=== PATIENT | female | born 1965 | race Caucasian/White ===

== ENCOUNTER 2018-04-12 14:22 | Emergency (ER) | payer MEDICARE, MEDICAID ==
[~2018-04-12] VITALS: Ht 172.7 cm; Wt 60.8 kg
[~2018-04-12 14:22] MED LIST: CLPD75T; CRS350T; LORA0.5T34; LVT.088T; PRM25T
[2018-04-12] MEDS ORDERED: KETOROLAC 30 MG/ML VIAL IVP ONE (14:45)
--- NOTE | 2018-04-12 14:51 | ED Abdominal Pain ---
General Stated Complaint: LOWER RIGHT SIDE PAIN Source of Information: Patient, Family Exam Limitations: No Limitations History of Present Illness Date Seen by Provider: Apr 12, 2018 Time Seen by Provider: 14:40 Initial Comments Patient presents to ER by private conveyance with chief complaint she's having some pain in her right lower quadrant abdomen started about 45 minutes to an hour ago. She describes it as 9 out of 10 sharp unrelenting pain. She says it does not radiate anywhere. She has not had her appendix or gallbladder out but she has had her hysterectomy and 2 C-sections. She is on a lot of medications for her migraine to include risperidone, topiramate. She said she had a bowel movement yesterday that was normal formed. No history of diverticulitis but she has had a colonoscopy in the past 2 years demonstrating a couple polyps. She has a history of interstitial cystitis. Allergies and Home Medications Allergies Coded Allergies: Hydrocodone (Verified Allergy, Unknown, 01/08/08) Morphine (Verified Allergy, Unknown, 01/08/08) Penicillins (Verified Allergy, Unknown, 01/08/08) Aspirin (Verified Adverse Reaction, Mild, STOMACH UPSET, 01/10/08) Patient Home Medication List Home Medication List Reviewed: Yes Review of Systems Review of Systems Constitutional: No chills, No diaphoresis EENTM: No Blurred Vision, No Double Vision Respiratory: Denies Cough, Denies Shortness of Air Cardiovascular: Denies Chest Pain, Denies Edema Gastrointestinal: Denies Abdomen Distended; Abdominal Pain; Denies Blood Streaked Stools, Denies Constipated, Denies Diarrhea, Denies Nausea Genitourinary: Denies Burning, Denies Discharge Musculoskeletal: No back pain, No joint pain Psychiatric/Neurological: Denies Anxiety, Denies Depressed Past [id number]-Ahpepz Hx Patient Social History Alcohol Use: Denies Use Recreational Drug Use: No Smoking Status: Never a Smoker Recent Foreign Travel: No Contact w/Someone Who Travel: No Past Medical History Reproductive Disorders: No Physical Exam Vital Signs Vital Signs - First Documented 04/12/18 14:30 Temp 97.8 Pulse 78 Resp 18 B/P (MAP) 124/80 (95) Pulse Ox 98 O2 Delivery Room Air Capillary Refill : Height/Weight/BMI Height: '" Weight: lbs. oz. kg; BMI Method: General Appearance: WD/WN, mild distress HEENT: PERRL/EOMI, normal ENT inspection, pharynx normal Neck: non-tender, full range of motion Respiratory: lungs clear, normal breath sounds, no respiratory distress, no accessory muscle use Cardiovascular: normal peripheral pulses, regular rate, rhythm, no edema Peripheral Pulses: 2+ Radial Pulses (R), 2+ Radial Pulses (L) Gastrointestinal: normal bowel sounds, soft; No rebound; tenderness (right lower quadrant at McBurney's point without rebound tenderness. Negative for Ellison sign but there is some tenderness in the right upper quadrant as well.), other (negative for mesenteric signs, Rovsing's, psoas.) Extremities: normal inspection, no pedal edema, normal capillary refill Neurologic/Psychiatric: alert, normal mood/affect, oriented x 3 Skin: normal color, warm/dry Progress/Results/Core Measures Results/Orders Lab Results Laboratory Tests Test 04/12/18 14:51 04/12/18 15:05 Range/Units White Blood Count 5.7 4.3-11.0 10^3/uL Red Blood Count 3.90 L 4.35-5.85 10^6/uL Hemoglobin 13.0 11.5-16.0 G/DL Hematocrit 37 35-52 % Mean Corpuscular Volume 94 80-99 FL Mean Corpuscular Hemoglobin 33 25-34 PG Mean Corpuscular Hemoglobin Concent 35 32-36 G/DL Red Cell Distribution Width 12.5 10.0-14.5 % Platelet Count 133 130-400 10^3/uL Mean Platelet Volume 11.9 H 7.4-10.4 FL Neutrophils (%) (Auto) 34 L 42-75 % Lymphocytes (%) (Auto) 54 H 12-44 % Monocytes (%) (Auto) 8 0-12 % Eosinophils (%) (Auto) 3 0-10 % Basophils (%) (Auto) 1 0-10 % Neutrophils # (Auto) 2.0 1.8-7.8 X 10^3 Lymphocytes # (Auto) 3.1 1.0-4.0 X 10^3 Monocytes # (Auto) 0.5 0.0-1.0 X 10^3 Eosinophils # (Auto) 0.2 0.0-0.3 10^3/uL Basophils # (Auto) 0.0 0.0-0.1 10^3/uL Sodium Level 134 L 135-145 MMOL/L Potassium Level 4.1 3.6-5.0 MMOL/L Chloride Level 105 98-107 MMOL/L Carbon Dioxide Level 20 L 21-32 MMOL/L Anion Gap 9 5-14 MMOL/L Blood Urea Nitrogen 11 7-18 MG/DL Creatinine 0.85 0.60-1.30 MG/DL Estimat Glomerular Filtration Rate > 60 BUN/Creatinine Ratio 13 Glucose Level 92 70-105 MG/DL Calcium Level 8.7 8.5-10.1 MG/DL Corrected Calcium 8.9 8.5-10.1 MG/DL Total Bilirubin 0.3 0.1-1.0 MG/DL Aspartate Amino Transf (AST/SGOT) 12 5-34 U/L Alanine Aminotransferase (ALT/SGPT) 10 0-55 U/L Alkaline Phosphatase 54 40-136 U/L C-Reactive Protein High Sensitivity 0.13 0.00-0.50 MG/DL Total Protein 6.9 6.4-8.2 GM/DL Albumin 3.8 3.2-4.5 GM/DL Urine Color YELLOW Urine Clarity CLEAR Urine pH 7 5-9 Urine Specific [place] 1.010 L 1.016-1.022 Urine Protein NEGATIVE NEGATIVE Urine Glucose (UA) NEGATIVE NEGATIVE Urine Ketones NEGATIVE NEGATIVE Urine Nitrite NEGATIVE NEGATIVE Urine Bilirubin NEGATIVE NEGATIVE Urine Urobilinogen NORMAL NORMAL MG/DL Urine Leukocyte Esterase 1+ H NEGATIVE Urine RBC (Auto) NEGATIVE NEGATIVE Urine RBC 0-2 /HPF Urine WBC 0-2 /HPF Urine Squamous Epithelial Cells 2-5 /HPF Urine Crystals PRESENT H /LPF Urine Amorphous Sediment MOD DENISE PHOSPHATE H /LPF Urine Bacteria FEW H /HPF Urine Casts NONE /LPF Urine Mucus NEGATIVE /LPF Urine Culture Indicated NO My Orders Orders - HELADIO PÉREZ Cbc With Automated Diff (04/12/18 14:39) Comprehensive Metabolic Panel (04/12/18 14:39) Hs C Reactive Protein (04/12/18 14:39) Ua Culture If Indicated (04/12/18 14:39) Saline Lock/Iv-Start (04/12/18 14:39) Ketorolac Injection (Toradol Injection) (04/12/18 14:45) Ct Abdomen/Pelvis W (04/12/18 16:05) Saline Lock/Iv-Start (04/12/18 16:05) Ns Iv 1000 Ml (Sodium Chloride 0.9%) (04/12/18 16:05) Fentanyl Injection (Sublimaze Injection (04/12/18 16:15) Iohexol Injection (Omnipaque 350 Mg/Ml 1 (04/12/18 16:15) Sodium Chloride Flush (Catheter Flush Sy (04/12/18 16:15) Ns (Ivpb) (Sodium Chloride 0.9%) (04/12/18 16:15) Pharmacy Communication (Pharmacy Communi (04/12/18 16:09) Medications Given in ED Current Medications Medications Dose Ordered Sig/Tim Route Start Time Stop Time Status Last Admin Dose Admin Fentanyl Citrate 50 mcg ONCE ONCE IVP 04/12/18 16:15 04/12/18 16:16 DC 04/12/18 16:35 50 MCG Iohexol 100 ml ONCE ONCE IV 04/12/18 16:15 04/12/18 16:16 DC 04/12/18 16:29 100 ML Ketorolac Tromethamine 15 mg ONCE ONCE IVP 04/12/18 14:45 04/12/18 14:46 DC 04/12/18 15:03 15 MG Sodium Chloride 10 ml NEEDED PRN IV 04/12/18 16:15 04/12/18 16:29 10 ML Sodium Chloride 250 ml ONCE ONCE IV 04/12/18 16:15 04/12/18 16:16 DC 04/12/18 16:29 80 ML Vital Signs/I&O 04/12/18 14:30 Temp 97.8 Pulse 78 Resp 18 B/P (MAP) 124/80 (95) Pulse Ox 98 O2 Delivery Room Air Progress Progress Note #1: Time: 14:51 Progress Note Patient does not have a surgically acute abdomen on exam without any mesenteric signs so we'll check some labs and urine to see if there is any evidence of any thing going on. Although she describes her pain as 9 out of 10 she has a very flat affect and does not appear to be in much distress. She does have a slow gait however secondary to pain. Possibilities could include kidney stone, gynecologic or colitis. We will trial Toradol for pain control. Progress Note #2: Time: 16:07 Progress Note Patient's says her pain has improved from a 9 down to an 8. She still having the same significant right lower quadrant pain. She has not had a bowel movement or any nausea. Plan to order a CT of the abdomen and pelvis with contrast and a liter of normal saline as well as 50 g of fentanyl for her discomfort. Diagnostic Imaging Diagonstic Imaging: CT (with contrast) Plain Films/CT/US/NM/MRI: abdomen, pelvis Comments VIA [facility]. [place], [place] NAME: VIVIANE DIGGS MED REC#: [id number] PT STATUS: REG ER : 1965 PHYSICIAN: HELADIO PÉREZ MD ADMIT DATE: 04/12/18/ER Draft Date of Exam:04/12/18 CT ABDOMEN/PELVIS W PROCEDURE: CT abdomen and pelvis with contrast. TECHNIQUE: Multiple contiguous axial images were obtained through the abdomen and pelvis after administration of intravenous contrast. INDICATION: Right lower quadrant abdominal pain. FINDINGS: The most cephalic images obtained reveal mild increased density within the medial segment of right middle lobe and within the lingula as well as possible subpleural nodularity in the posterior right lower lobe. These are incompletely evaluated and could represent areas of chronic scarring. No focal hepatic, gallbladder, pancreatic, splenic or adrenal gland abnormality is identified. There are subcentimeter peripheral cortical cysts involving the left kidney. There is no evidence of hydronephrosis or solid renal mass. No free fluid is seen within the abdomen or pelvis. There is mild to moderate amount of stool throughout the colon. Unenhanced bladder reveals no intraluminal calcification. There is mild lumbar spondylosis with diffuse disc bulging. Mild aortoiliac atherosclerotic calcification is noted. IMPRESSION: 1. Partially imaged lungs revealed possible areas of infiltrate or scarring in the right middle lobe, lingula and posterior right lower lobe. If at all warranted, followup chest imaging could be considered. 2. Otherwise, there is no CT evidence of acute abnormality within the abdomen or pelvis. Dictated on workstation # [id number] Dict: 04/12/18 1633 Trans: 04/12/18 1640 TS [id number] Interpreted by: JELENA AMBROSIO MD Electronically signed by: Reviewed: Reviewed by Me Departure Impression Primary Impression: Abdominal pain Qualified Codes: R10.31 - Right lower quadrant pain Disposition: 01 HOME, SELF-CARE Condition: Stable Departure-Patient Inst. Decision time for Depature: 16:50 Referrals: NO,LOCAL PHYSICIAN (PCP/Family) Primary Care Physician Patient Instructions: Acute Abdomen (Belly Pain), Adult (DC) Add. Discharge Instructions: Drink lots of fluids and potato picker a bottle of MiraLAX and take one capful once or twice a day for the next couple days to clean out your bowels. Make a follow- up appointment with your primary care doctor in the next week. If you develop fevers, intractable pain or nausea then you can follow up your doctor sooner or return to the ER if after hours. HELADIO PÉREZ Apr 12, 2018 14:50
[2018-04-12 15:03] LABS: BASOPHILS % (AUTO) 1 % (0-10); EOSINOPHILS # (AUTO) 0.2 10^3/uL (0.0-0.3); EOSINOPHILS % (AUTO) 3 % (0-10); HEMATOCRIT 37 % (35-52); LYMPHOCYTES # (AUTO) 3.1 X 10^3 (1.0-4.0); LYMPHOCYTES % (AUTO) 54 % (12-44); MEAN CORPUSCULAR HEMOGLOBIN 33 PG (25-34); MEAN CORPUSCULAR HGB CONC 35 G/DL (32-36); MEAN CORPUSCULAR VOLUME 94 FL (80-99); MEAN PLATELET VOLUME 11.9 FL (7.4-10.4); MONOCYTES # (AUTO) 0.5 X 10^3 (0.0-1.0); MONOCYTES % (AUTO) 8 % (0-12); NEUTROPHILS % (AUTO) 34 % (42-75); PLATELET COUNT 133 10^3/uL (130-400); RED CELL DISTRIBUTION WIDTH 12.5 % (10.0-14.5); WHITE BLOOD COUNT 5.7 10^3/uL (4.3-11.0)
--- OUTSIDE RECORDS SUMMARY | 2018-04-12 15:04 | XMS REPORT | Continuity of Care Document ---
Author Author [facility] Address Unknown Phone Unavailable Allergies Active Description Code Type Severity Reaction Onset Reported/Identified Relationship to Patient Clinical Status Yes aspirin Drug Allergy 08/08/2008 Yes codeine Drug Allergy 08/08/2008 Yes morphine Drug Allergy 08/08/2008 Yes Penicillins Drug Allergy 08/08/2008 Yes Ultram Drug Allergy 08/08/2008 Yes Omnicef Drug Allergy 08/09/2009 Yes Percocet 5/325 Drug Allergy 06/10/2010 Medications There is no data. Problems Date Dx Coded Attending Type Code Diagnosis Diagnosed By 01/04/2008 723.1 CERVICALGIA 01/04/2008 784.0 headache 01/04/2008 PIEDAD BISHOP DO 723.1 CERVICALGIA 01/04/2008 PIEDAD BISHOP DO 784.0 headache 02/06/2008 266.2 B12 DEF W/O ANEMIA 02/06/2008 PIEDAD BISHOP DO 266.2 B12 DEF W/O ANEMIA 06/06/2008 338.4 CHRONIC PAIN SYNDROME 06/06/2008 PIEDAD BISHOP DO 338.4 CHRONIC PAIN SYNDROME 12/04/2008 346.90 MIGRAINE HEADACHE 12/04/2008 465.9 Upper Respiratory Infection 12/04/2008 PIEDAD BISHOP DO 346.90 MIGRAINE HEADACHE 12/04/2008 PIEDAD BISHOP DO 465.9 Upper Respiratory Infection 01/08/2009 244.9 HYPOTHYROIDISM 01/08/2009 293.83 MOOD DISORDER DUE TO GENERAL MEDICAL CONDITION 01/08/2009 300.00 anxiety 01/08/2009 780.79 Feelings Of Weakness 01/08/2009 PIEDAD BISHOP DO 244.9 HYPOTHYROIDISM 01/08/2009 PIEDAD BISHOP DO 293.83 MOOD DISORDER DUE TO GENERAL MEDICAL CONDITION 01/08/2009 PIEDAD BISHOP DO 300.00 anxiety 01/08/2009 PIEDAD BISHOP DO 780.79 Feelings Of Weakness 02/28/2009 454.8 Varicose Veins With Pain 02/28/2009 V76.10 Visit For: Screening Exam Malignant Neoplasm Breast 02/28/2009 PIEDAD BISHOP DO 454.8 Varicose Veins With Pain 02/28/2009 PIEDAD BISHOP DO V76.10 Visit For: Screening Exam Malignant Neoplasm Breast 03/20/2009 300.02 GENERALIZED ANXIETY DISORDER 03/20/2009 PIEDAD BISHOP DO 300.02 GENERALIZED ANXIETY DISORDER 04/15/2009 788.41 Urinary Frequency Increased 04/15/2009 PIEDAD BISHOP DO 788.41 Urinary Frequency Increased 05/05/2009 462 Acute Pharyngitis 05/05/2009 PIEDAD BISHOP DO 462 Acute Pharyngitis 08/07/2009 480.0 Pneumonia Due To Adenovirus 08/07/2009 786.2 Cough 08/07/2009 PIEDAD BISHOP DO 480.0 Pneumonia Due To Adenovirus 08/07/2009 PIEDAD BISHOP DO 786.2 Cough 10/07/2009 305.1 NICOTINE DEPENDENCE 10/07/2009 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 10/07/2009 733.6 Costochondritis (tietze's Syndrome) 10/07/2009 PIEDAD BISHOP DO 305.1 NICOTINE DEPENDENCE 10/07/2009 PIEDAD BISHOP DO 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 10/07/2009 PIEDAD BISHOP DO 733.6 Costochondritis (tietze's Syndrome) 10/16/2009 719.41 Pain In Joint , Shoulder Region 10/16/2009 PIEDAD BISHOP DO 719.41 Pain In Joint, Shoulder Region 12/03/2009 V68.1 ISSUE OF REPEAT PRESCRIPTIONS 12/03/2009 PIEDAD BISHOP DO V68.1 ISSUE OF REPEAT PRESCRIPTIONS 02/03/2011 611.72 Breast Lump Or Mass 02/03/2011 PIEDAD BISHOP DO 611.72 Breast Lump Or Mass 05/19/2011 788.30 URINARY INCONTINENCE UNSPECIFIED 05/19/2011 PIEDAD BISHOP DO 788.30 URINARY INCONTINENCE UNSPECIFIED 06/16/2011 110.5 Dermatophytosis Tinea Corporis 06/16/2011 595.1 CYSTITIS CHRONIC INTERSTITIAL 06/16/2011 PIEDAD BISHOP DO 110.5 Dermatophytosis Tinea Corporis 06/16/2011 PIEDAD BISHOP DO 595.1 CYSTITIS CHRONIC INTERSTITIAL 07/20/2011 625.0 DYSPAREUNIA 07/20/2011 627.3 VAGINITIS POSTMENOPAUSAL ATROPHIC 07/20/2011 PIEDAD BISHOP DO 625.0 DYSPAREUNIA 07/20/2011 PIEDAD BISHOP DO 627.3 VAGINITIS POSTMENOPAUSAL ATROPHIC 08/05/2011 296.90 MOOD DISORDER 08/05/2011 301.3 QUARRELSOMENESS (EXPLOSIVE PERSONALITY) 08/05/2011 780.79 MALAISE AND FATIGUE 08/05/2011 PIEDAD BISHOP DO 296.90 MOOD DISORDER 08/05/2011 PIEDAD BISHOP DO 301.3 QUARRELSOMENESS (EXPLOSIVE PERSONALITY) 08/05/2011 PIEDAD BISHOP DO 780.79 MALAISE AND FATIGUE 12/14/2011 338.29 OTHER CHRONIC PAIN 12/14/2011 V58.69 LONG-TERM ( CURRENT) USE OF OTHER MEDICATIONS 12/14/2011 PIEDAD BISHOP DO 338.29 OTHER CHRONIC PAIN 12/14/2011 PIEDAD BISHOP DO V58.69 LONG-TERM (CURRENT) USE OF OTHER MEDICATIONS Procedures There is no data. Results There is no data. Encounters ACCT No. Visit Date/Time Discharge Status Pt. Type Provider Facility Loc./Unit Complaint [id number] 03/06/2012 15:47:00 03/06/2012 23:59:59 CLS Outpatient PIEDAD BISHOP DO [id number] 03/06/2012 15:47:00 03/06/2012 23:59:59 CLS Outpatient
[2018-04-12 15:24] LABS: BILIRUBIN,URINE NEGATIVE (NEGATIVE); CLARITY,URINE CLEAR; COLOR,URINE YELLOW; GLUCOSE, URINE (UA) NEGATIVE (NEGATIVE); KETONES,URINE NEGATIVE (NEGATIVE); LEUKOCYTE ESTERASE ,URINE 1+ (NEGATIVE); NITRITE,URINE NEGATIVE (NEGATIVE); PH,URINE 7 (5-9); PROTEIN,URINE NEGATIVE (NEGATIVE); UROBILINOGEN,URINE NORMAL (NORMAL)
[2018-04-12 15:26] LABS: ALANINE AMINOTRANSFERASE 10 U/L (0-55); ALBUMIN 3.8 GM/DL (3.2-4.5); ALKALINE PHOSPHATASE 54 U/L (40-136); BILIRUBIN,TOTAL 0.3 MG/DL (0.1-1.0); BUN/CREATININE RATIO 13; CALCIUM 8.7 MG/DL (8.5-10.1); CARBON DIOXIDE 20 MMOL/L (21-32); CHLORIDE 105 MMOL/L (98-107); CREATININE SERUM 0.85 MG/DL (0.60-1.30); GFR ESTIMATED > 60; GLUCOSE 92 MG/DL (70-105); POTASSIUM 4.1 MMOL/L (3.6-5.0); SODIUM 134 MMOL/L (135-145); TOTAL PROTEIN 6.9 GM/DL (6.4-8.2)
[2018-04-12 15:29] LABS: BACTERIA,URINE FEW /HPF; RBC,URINE 0-2 /HPF; WBC,URINE 0-2 /HPF
[2018-04-12 15:30] LABS: AMORPHOUS SEDIMENT,UR MOD AMOR PHOSPHATE /LPF
[2018-04-12] MEDS ORDERED: NS IV 1000 ML 1,000 ML IV SCH (16:05)
[2018-04-12] MEDS ORDERED: NS 250 ML (IVPB) BAG IV ONE (16:15)
[2018-04-12] MEDS ORDERED: fentaNYL INJECTION 100 MCG/2 ML AMP IVP ONE (16:15)
[2018-04-12] MEDS ORDERED: CATHETER FLUSH 10 ML SYR IV PRN (16:15)
[2018-04-12] MEDS ORDERED: IOHEXOL 350 MG/ML 100 ML (OMNIPAQUE 350) VIAL IV ONE (16:15)
[2018-04-12] MEDS ORDERED: IBUP-1780 (16:34)
[2018-04-12] MEDS ORDERED: SERT50TA9 (16:34)
[2018-04-12] MEDS ORDERED: PREG75CA (16:34)
[2018-04-12] MEDS ORDERED: PROP40TA5 (16:34)
[2018-04-12] MEDS ORDERED: DIVA-76 (16:34)
[2018-04-12] MEDS ORDERED: RISP1TAB3 (16:34)
[2018-04-12] MEDS ORDERED: ESTR1TAB24 (16:34)
[2018-04-12] MEDS ORDERED: OXYB5TAB9 (16:34)
[2018-04-12] MEDS ORDERED: LEVO100T7 (16:34)
[2018-04-12] MEDS ORDERED: TOPI100T11 (16:34)
--- NOTE | 2018-04-12 16:40 | Diagnostic Imaging Report ---
PROCEDURE: CT abdomen and pelvis with contrast. TECHNIQUE: Multiple contiguous axial images were obtained through the abdomen and pelvis after administration of intravenous contrast. INDICATION: Right lower quadrant abdominal pain. FINDINGS: The most cephalic images obtained reveal mild increased density within the medial segment of right middle lobe and within the lingula as well as possible subpleural nodularity in the posterior right lower lobe. These are incompletely evaluated and could represent areas of chronic scarring. No focal hepatic, gallbladder, pancreatic, splenic or adrenal gland abnormality is identified. There are subcentimeter peripheral cortical cysts involving the left kidney. There is no evidence of hydronephrosis or solid renal mass. No free fluid is seen within the abdomen or pelvis. There is mild to moderate amount of stool throughout the colon. Unenhanced bladder reveals no intraluminal calcification. There is mild lumbar spondylosis with diffuse disc bulging. Mild aortoiliac atherosclerotic calcification is noted. IMPRESSION: 1. Partially imaged lungs revealed possible areas of infiltrate or scarring in the right middle lobe, lingula and posterior right lower lobe. If at all warranted, followup chest imaging could be considered. 2. Otherwise, there is no CT evidence of acute abnormality within the abdomen or pelvis. Dictated by: Dictated on workstation # [id number]
[2018-04-12 17:05] VITALS: BP 144/91
== END 2018-04-12 17:01 | disposition home or self-care (01) ==
LOC: EDUNIT# 14:22 → ER 14:24
DX: R10.31 Right lower quadrant pain (principal); G43.909 Migraine, unspecified, not intractable, without status migrainosus; Z86.010 Personal history of colon polyps; Z88.5 Allergy status to narcotic agent; Z88.6 Allergy status to analgesic agent; Z87.19 Personal history of other diseases of the digestive system
CPT/HCPCS: 36415; 74177; 80053; 81000; 85025; 86141; 96361; 96374; 96375

== ENCOUNTER 2018-08-25 16:35 | Emergency (ER) | payer MEDICARE, MEDICAID ==
[~2018-08-25] VITALS: Ht 172.7 cm; Wt 70.3 kg
[~2018-08-25 16:35] MED LIST changes: +DIVA-76; +ESTR1TAB24; +IBUP-1780; +LEVO100T7; +OXYB5TAB9; +PREG75CA; +PROP40TA5; +RISP1TAB3; +SERT50TA9; +TOPI100T11
--- NOTE | 2018-08-25 17:11 | ED Neurological Problem ---
General Chief Complaint: Neuro-Stroke Like Symptoms Stated Complaint: L SIDE WEAKNESS/SYNCOPE Nursing Triage Note: PATIENT HERE BY EMS AFTER APPARENTLY BEING UNRESPONSIVE FOR GREATER THAN 5 MINS. PATIENT CURRENTLY A/O x4. MILD WEAKNESS TO LEFT SIDE ARM AND LEG. Nursing Sepsis Screen: No Definite Risk Source: patient Exam Limitations: no limitations History of Present Illness Date Seen by Provider: Aug 25, 2018 Time Seen by Provider: 17:08 Initial Comments To ER per EMS with reports of syncopal event being unresponsive for greater than 5 minutes. This happened sometime between after 2 PM but before 1518 as bad as when she was found by police. She is alert and oriented but she complains of some weakness to her left side mostly the left arm. She recalls talking to a gentleman on the phone just prior to passing out and then awakening to a police department secretary in her face awakening her. She smokes 1.5 pack of cigarettes per day. Timing/Duration: 1-3 hours Severity: moderate Associated Symptoms: No slurred speech, No trouble walking, No vision changes; weakness Allergies and Home Medications Allergies Coded Allergies: Penicillins (Verified Allergy, Unknown, 01/08/08) hydrocodone (Verified Allergy, Unknown, 01/08/08) morphine (Verified Allergy, Unknown, 01/08/08) aspirin (Verified Adverse Reaction, Mild, STOMACH UPSET, 01/10/08) Patient Home Medication List Home Medication List Reviewed: Yes Review of Systems Review of Systems Constitutional: see HPI Eyes: No Symptoms Reported Ears, Nose, Mouth, Throat: no symptoms reported Respiratory: no symptoms reported Cardiovascular: no symptoms reported Genitourinary: no symptoms reported Musculoskeletal: no symptoms reported Skin: no symptoms reported Psychiatric/Neurological: See HPI, Weakness Past Rtstcwv-Byirkz-Euobwc Hx Patient Social History Alcohol Use: Denies Use Recreational Drug Use: Yes (MARIJUANA) Smoking Status: Current Everyday Smoker Type Used: Cigarettes 2nd Hand Smoke Exposure: Yes Recent Foreign Travel: No Contact w/Someone Who Travel: No Recent Infectious Disease Expo: No Recent Hopitalizations: Yes Past Medical History Surgeries: Yes Respiratory: No Cardiac: No Neurological: Yes Reproductive Disorders: No 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 0oz. 70.771140ng; BMI Method:Stated General Appearance: WD/WN, no apparent distress HEENT: PERRL/EOMI, normal ENT inspection Neck: non-tender, full range of motion Respiratory: normal breath sounds, no respiratory distress, no accessory muscle use Cardiovascular: regular rate, rhythm, no murmur Gastrointestinal: normal bowel sounds, non tender, soft Neurologic/Psychiatric: alert, normal mood/affect, oriented x 3 Crainal Nerves: normal hearing, normal speech, PERRL Coordination/Gait: normal finger to nose Motor/Sensory: pronator drift (L), sensory deficit, weak motor strength LUE, weak motor strength LLE Skin: normal color, warm/dry Stroke Onset of Symptoms Date of Onset of Symptoms: Aug 25, 2018 Time of Symptom Onset: 15:30 Onset of Symptoms: Yes Symptoms onset unknown: Yes NIH Stroke Scale Assessment Select: Initial Level of Consciousness: 0=Alert (0), Level of Consciousness- Questions: 0=Answers both month/age (0), LOC Commands: 0=Performs both tasks (0) , Gaze: Normal (0), Visual Wilkins: 0=No visual loss (0), Facial Movement ( Facial Paresis): 0=Normal symmetrical mnt (0), Motor Function-Arms Right: 0=No drift (0), Motor Function-Arms Left: 1=Drift (1), Motor Function-Legs Right: 0= No drift (0), Motor Function-Legs Left: 1=Drift (1), Limb Ataxia: 0=Absent (0), Sensory: 1=Mild to Moderate loss the left arm (1), Best Language: 0=No aphasia (0), Dysarthria: 0=Normal (0), Extinction & Inattention: 0=No abnormality (0), Total: 3 Stroke Thrombolytic Exclusion Age 18 or Over: Yes Acute intenal hemorrhage: No History of CVA: No Uncontrolled Coagulation Defec: No Intracranial Hemorrhage: No Severe Hypertension: No GI or Bleed: No Subarachnoid Hemorrhage: No Intracranial Neoplasm/Aneurysm: No Oral Anticoagulants: No Surgery or Trauma: No Puncture of Non-Compressible V: No Recent CPR: No Diabetic Hemorrhagic Retinopat: No Organ Biopsy: No Recent Obstetric Delivery: No Glucose: No Significant Hepatic Dysfunctio: No NIH Stoke Scale >22: No Bacterial Endocarditis: No Pericarditis: No Improving Symptoms: No Platelets: No TPA Contraindication: No Progress/Results/Core Measures Results/Orders Lab Results Laboratory Tests Test 08/25/18 16:52 08/25/18 17:35 08/25/18 17:44 Range/Units Glucometer 93 70-110 MG/DL White Blood Count 6.2 4.3-11.0 10^3/uL Red Blood Count 4.05 L 4.35-5.85 10^6/uL Hemoglobin 12.6 11.5-16.0 G/DL Hematocrit 38 35-52 % Mean Corpuscular Volume 94 80-99 FL Mean Corpuscular Hemoglobin 31 25-34 PG Mean Corpuscular Hemoglobin Concent 33 32-36 G/DL Red Cell Distribution Width 14.6 H 10.0-14.5 % Platelet Count 146 130-400 10^3/uL Mean Platelet Volume 11.5 H 7.4-10.4 FL Neutrophils (%) (Auto) 34 L 42-75 % Lymphocytes (%) (Auto) 50 H 12-44 % Monocytes (%) (Auto) 11 0-12 % Eosinophils (%) (Auto) 4 0-10 % Basophils (%) (Auto) 0 0-10 % Neutrophils # (Auto) 2.1 1.8-7.8 X 10^3 Lymphocytes # (Auto) 3.1 1.0-4.0 X 10^3 Monocytes # (Auto) 0.7 0.0-1.0 X 10^3 Eosinophils # (Auto) 0.3 0.0-0.3 10^3/uL Basophils # (Auto) 0.0 0.0-0.1 10^3/uL Prothrombin Time 13.8 12.2-14.7 SEC INR Comment 1.1 0.8-1.4 Activated Partial Thromboplast Time 41 H 24-35 SEC D-Dimer 0.61 H 0.00-0.49 UG/ML Sodium Level 134 L 135-145 MMOL/L Potassium Level 4.2 3.6-5.0 MMOL/L Chloride Level 100 98-107 MMOL/L Carbon Dioxide Level 25 21-32 MMOL/L Anion Gap 9 5-14 MMOL/L Blood Urea Nitrogen 14 7-18 MG/DL Creatinine 0.91 0.60-1.30 MG/DL Estimat Glomerular Filtration Rate > 60 BUN/Creatinine Ratio 15 Glucose Level 78 70-105 MG/DL Calcium Level 9.0 8.5-10.1 MG/DL Corrected Calcium 9.1 8.5-10.1 MG/DL Total Bilirubin 0.2 0.1-1.0 MG/DL Aspartate Amino Transf (AST/SGOT) 13 5-34 U/L Alanine Aminotransferase (ALT/SGPT) 6 0-55 U/L Alkaline Phosphatase 66 40-136 U/L Troponin I < 0.028 <0.028 NG/ML Total Protein 6.6 6.4-8.2 GM/DL Albumin 3.9 3.2-4.5 GM/DL Urine Color YELLOW Urine Clarity SLIGHTLY CLOUDY Urine pH 8 5-9 Urine Specific [place] 1.015 L 1.016-1.022 Urine Protein NEGATIVE NEGATIVE Urine Glucose (UA) NEGATIVE NEGATIVE Urine Ketones NEGATIVE NEGATIVE Urine Nitrite NEGATIVE NEGATIVE Urine Bilirubin NEGATIVE NEGATIVE Urine Urobilinogen NORMAL NORMAL MG/DL Urine Leukocyte Esterase NEGATIVE NEGATIVE Urine RBC (Auto) NEGATIVE NEGATIVE Urine RBC NONE /HPF Urine WBC NONE /HPF Urine Squamous Epithelial Cells RARE /HPF Urine Crystals NONE /LPF Urine Amorphous Sediment LARGE DENISE PHOSPHATE H /LPF Urine Bacteria NEGATIVE /HPF Urine Casts NONE /LPF Urine Mucus NEGATIVE /LPF Urine Culture Indicated NO My Orders Orders - AMADO MYERS APRN Cbc With Automated Diff (08/25/18 16:36) Protime With Inr (08/25/18 16:36) Partial Thromboplastin Time (08/25/18 16:36) Comprehensive Metabolic Panel (08/25/18 16:36) Fibrin Degradation Products (08/25/18 16:36) Troponin I (08/25/18 16:36) Ua Culture If Indicated (08/25/18 16:36) Chest 1 View, Ap/Pa Only (08/25/18 16:36) Ekg Tracing (08/25/18 16:36) Nothing By Mouth (08/26/18 Breakfast) Accucheck Stat ONCE (08/25/18 16:36) Saline Lock/Iv-Start (08/25/18 16:36) Saline Lock/Iv-Start (08/25/18 16:36) Vital Signs Stroke Patient Q15M (08/25/18 16:36) O2 (08/25/18 16:36) Intake & Output 06,14,22 (08/25/18 16:36) Monitor-Rhythm Ecg Trace Only (08/25/18 16:36) Dysphagia Screening Tool (08/25/18 16:36) Post Thrombolytic Adminstratio (08/25/18 16:36) Lipid Panel (08/26/18 06:00) Ct Angio Head/Neck (08/25/18 16:36) Iohexol Injection (Omnipaque 350 Mg/Ml 1 (08/25/18 17:15) Contrast Received (Contrast Received) (08/25/18 17:15) Ns (Ivpb) (Sodium Chloride 0.9% Ivpb Bag (08/25/18 17:15) Drug Screen Stat (Urine) (08/25/18 18:35) Medications Given in ED Current Medications Medications Dose Ordered Sig/Tim Route Start Time Stop Time Status Last Admin Dose Admin Iohexol 75 ml ONCE ONCE IV 08/25/18 17:15 08/25/18 17:16 DC 08/25/18 17:17 75 ML Sodium Chloride 100 ml ONCE ONCE IV 08/25/18 17:15 08/25/18 17:16 DC 08/25/18 17:17 80 ML Vital Signs/I&O 08/25/18 08/25/18 16:35 16:40 Temp 97.0 Pulse 81 Resp 20 B/P (MAP) 136/84 (101) Pulse Ox 98 99 O2 Delivery Room Air Blood Pressure Mean: 101 FSBG Bedside Testing Finger Stick Blood Glucose: 93 Blood Glucose Action Taken: NONE Departure Communication (Admissions) Family Conversation NAME: VIVIANE DIGGS MED REC#: [id number] PT STATUS: REG ER : 1965 PHYSICIAN: AMADO MYERS APRN ADMIT DATE: 08/25/18/ER Draft Date of Exam:08/25/18 CT ANGIO HEAD/NECK PROCEDURE: CT angiography of the head and CT angiography of the neck with and without contrast. TECHNIQUE: Contiguous noncontrast images were obtained from the skull base through the vertex. After intravenous contrast administration, helical CT angiography of the neck was performed. Source data was reformatted into multiple MIP projections. Delayed post contrast acquisition was also obtained. INDICATION: Episode of unresponsiveness now with mild weakness on the left. CT HEAD: There is no hemorrhage, hydrocephalus, edema, mass or mass effect. The delayed postcontrast enhanced head CT reveals enhancement of major dural venous sinuses with no abnormal meningeal or parenchymal enhancement. The orbits, sinuses and calvarium appeared nonacute. CT ANGIOGRAM NECK: Cervical vertebral arteries patent and codominant. Common, internal and major external carotid, cervical carotid and arterial branches unremarkable. No hemodynamically significant stenosis, dissection or occlusion. CT ANGIO HEAD: Intracranial ICAs patent. A1 segments, the ACOM and the paired anterior cerebral arteries patent. Middle cerebral arterial segments showed no appreciable filling defect. No evidence for large vessel occlusion. The intrathecal vertebral arteries, the basilar and the FITTINGS TIGHTENER segments bilaterally appeared unremarkable. IMPRESSION: No edema, hemorrhage or large vessel occlusion. No evidence for hemodynamically significant cervical or intracranial arterial stenosis. Dictated on workstation # [id number] Dict: 08/25/18 1739 Trans: 08/25/[address] [facility] [id number] Interpreted by: JELENA SIDDIQI Electronically signed by: She gets an initial NIH score of 3, one for mild sensory loss mostly of the left upper extremity, none that is really noted to the left lower extremity, she does have weakness to the left lower extremity scoring 1 and weakness to the left upper extremity with very faint drift. 182-I spoke with Dr. Mendez neurologist from [facility]. Given the low NIH score and the clean CT without contrast and the CT angios head and neck that does not show any stenosis or occlusion, no TPA is indicated, she does not feel this to be stroke related. She would recommend observation in the hospital overnight. We have I have any beds and her on diversion. 1853-we are on diversion and have no beds here. I discussed with the patient the need for either observation in the emergency room for about 12 hours for transfer to another facility for further observation. She states that she has a dog at home and cannot stay in the hospital. She will sign a form refusal of services stating that she refuses to stay in the hospital. She states that she is allergic to aspirin only because it upsets her stomach. I'll prescribe Plavix for 10 days until she can follow up with primary care 1855-her NIH remains 2-3 probably closer to 2 as the drift of the left arm is improving and questionable at best. Impression Primary Impression: Left-sided weakness Disposition: 01 HOME, SELF-CARE Condition: Stable Departure-Patient Inst. Decision time for Depature: 18:52 Referrals: KEILA HSU MD (PCP/Family) Primary Care Physician Patient Instructions: General (DC) Add. Discharge Instructions: 1. Return to ER for any concerns 2.medication as directed 3. Return to ER for any worsening weakness or other concerns All discharge instructions reviewed with patient and/or family. Voiced understanding. Scripts Clopidogrel Bisulfate (Plavix) 75 Mg Tablet 75 MG PO DAILY, #10 TAB Prov: AMADO MYERS APRN 08/25/18 Copy Copies To 1: KEILA HSU MD, PETER J APRN Aug 25, 2018 17:11
[2018-08-25] MEDS ORDERED: IOHEXOL 350 MG/ML 100 ML (OMNIPAQUE 350) VIAL IV ONE (17:15)
[2018-08-25] MEDS ORDERED: NS 100 ML (IVPB) BAG IV ONE (17:15)
[2018-08-25] MEDS ORDERED: RECEIVED CONTRAST 20 ML VIAL IV SCH (17:15)
--- NOTE | 2018-08-25 17:29 | Diagnostic Imaging Report ---
INDICATION: Unresponsive, left-sided weakness. FINDINGS: The lungs are clear. The heart and vessels normal. There is no effusion or pneumothorax. IMPRESSION: Negative. Dictated by: Dictated on workstation # [id number]
[2018-08-25 17:38] LABS: BASOPHILS % (AUTO) 0 % (0-10); EOSINOPHILS # (AUTO) 0.3 10^3/uL (0.0-0.3); EOSINOPHILS % (AUTO) 4 % (0-10); HEMATOCRIT 38 % (35-52); HEMOGLOBIN 12.6 G/DL (11.5-16.0); LYMPHOCYTES # (AUTO) 3.1 X 10^3 (1.0-4.0); LYMPHOCYTES % (AUTO) 50 % (12-44); MEAN CORPUSCULAR HEMOGLOBIN 31 PG (25-34); MEAN CORPUSCULAR HGB CONC 33 G/DL (32-36); MEAN CORPUSCULAR VOLUME 94 FL (80-99); MEAN PLATELET VOLUME 11.5 FL (7.4-10.4); MONOCYTES # (AUTO) 0.7 X 10^3 (0.0-1.0); MONOCYTES % (AUTO) 11 % (0-12); NEUTROPHILS # (AUTO) 2.1 X 10^3 (1.8-7.8); NEUTROPHILS % (AUTO) 34 % (42-75); PLATELET COUNT 146 10^3/uL (130-400); RED CELL DISTRIBUTION WIDTH 14.6 % (10.0-14.5); WHITE BLOOD COUNT 6.2 10^3/uL (4.3-11.0)
--- NOTE | 2018-08-25 17:48 | Diagnostic Imaging Report ---
PROCEDURE: CT angiography of the head and CT angiography of the neck with and without contrast. TECHNIQUE: Contiguous noncontrast images were obtained from the skull base through the vertex. After intravenous contrast administration, helical CT angiography of the neck was performed. Source data was reformatted into multiple MIP projections. Delayed post contrast acquisition was also obtained. INDICATION: Episode of unresponsiveness now with mild weakness on the left. CT HEAD: There is no hemorrhage, hydrocephalus, edema, mass or mass effect. The delayed postcontrast enhanced head CT reveals enhancement of major dural venous sinuses with no abnormal meningeal or parenchymal enhancement. The orbits, sinuses and calvarium appeared nonacute. CT ANGIOGRAM NECK: Cervical vertebral arteries patent and codominant. Common, internal and major external carotid, cervical carotid and arterial branches unremarkable. No hemodynamically significant stenosis, dissection or occlusion. CT ANGIO HEAD: Intracranial ICAs patent. A1 segments, the ACOM and the paired anterior cerebral arteries patent. Middle cerebral arterial segments showed no appreciable filling defect. No evidence for large vessel occlusion. The intrathecal vertebral arteries, the basilar and the ENGINEERING RESEARCH MANAGER segments bilaterally appeared unremarkable. IMPRESSION: No edema, hemorrhage or large vessel occlusion. No evidence for hemodynamically significant cervical or intracranial arterial stenosis. Dictated by: Dictated on workstation # [id number]
[2018-08-25 17:50] LABS: BILIRUBIN,URINE NEGATIVE (NEGATIVE); CLARITY,URINE SLIGHTLY CLOUDY; COLOR,URINE YELLOW; GLUCOSE, URINE (UA) NEGATIVE (NEGATIVE); KETONES,URINE NEGATIVE (NEGATIVE); LEUKOCYTE ESTERASE ,URINE NEGATIVE (NEGATIVE); NITRITE,URINE NEGATIVE (NEGATIVE); PH,URINE 8 (5-9); PROTEIN,URINE NEGATIVE (NEGATIVE); UROBILINOGEN,URINE NORMAL (NORMAL)
[2018-08-25 17:53] LABS: FIBRIN DEGRADATION PRODUCTS 0.61 UG/ML (0.00-0.49); INR 1.1 (0.8-1.4); PROTHROMBIN TIME PATIENT 13.8 SEC (12.2-14.7)
[2018-08-25 17:56] LABS: AMORPHOUS SEDIMENT,UR LARGE AMOR PHOSPHATE /LPF; BACTERIA,URINE NEGATIVE /HPF; SQUAMOUS EPITHELIAL CELL,UR RARE /HPF
[2018-08-25 17:59] LABS: ALANINE AMINOTRANSFERASE 6 U/L (0-55); ALBUMIN 3.9 GM/DL (3.2-4.5); ALKALINE PHOSPHATASE 66 U/L (40-136); BILIRUBIN,TOTAL 0.2 MG/DL (0.1-1.0); BUN/CREATININE RATIO 15; CARBON DIOXIDE 25 MMOL/L (21-32); CHLORIDE 100 MMOL/L (98-107); CREATININE SERUM 0.91 MG/DL (0.60-1.30); GFR ESTIMATED > 60; GLUCOSE 78 MG/DL (70-105); POTASSIUM 4.2 MMOL/L (3.6-5.0); SODIUM 134 MMOL/L (135-145); TOTAL PROTEIN 6.6 GM/DL (6.4-8.2)
[2018-08-25 18:53] LABS: AMPHETAMINE SCREEN, URINE NEGATIVE (NEGATIVE); BARBITURATE SCREEN URINE NEGATIVE (NEGATIVE); BENZODIAZEPINES SCREEN URINE NEGATIVE (NEGATIVE); CANNABINOID SCREEN, URINE POSITIVE (NEGATIVE); COCAINE SCREEN URINE NEGATIVE (NEGATIVE); METHADONE STAT NEGATIVE (NEGATIVE); METHAMPHETAMINE SCREEN URINE S NEGATIVE (NEGATIVE); OPIATE SCREEN URINE NEGATIVE (NEGATIVE); OXYCODONE STAT NEGATIVE (NEGATIVE); PROPOXYPHENE STAT NEGATIVE (NEGATIVE); TRICYCLIC ANTIDEPRESSANTS SCRE NEGATIVE (NEGATIVE)
[2018-08-25] MEDS ORDERED: CLOP75TA69 PO (18:53)
[2018-08-25] MEDS ORDERED: CLOPIDOGREL 75 MG (PLAVIX) TABLET PO ONE (19:00)
[2018-08-25 19:15] VITALS: BP 136/84
--- OUTSIDE RECORDS SUMMARY | 2018-08-27 10:09 | XMS REPORT | Continuity of Care Document ---
Author Author 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 Results Test Result Range Complete blood count (CBC) with automated white blood cell (WBC) differential - 04/12/18 14:51 Blood leukocytes automated count (number/volume) 5.7 10*3/uL 4.3-11.0 Blood erythrocytes automated count (number/volume) 3.90 10*6/uL 4.35-5.85 Venous blood hemoglobin measurement (mass/volume) 13.0 g/dL 11.5-16.0 Blood hematocrit (volume fraction) 37 % 35-52 Automated erythrocyte mean corpuscular volume 94 [foz_us] 80-99 Automated erythrocyte mean corpuscular hemoglobin (mass per erythrocyte) 33 pg 25-34 Automated erythrocyte mean corpuscular hemoglobin concentration measurement ( mass/volume) 35 g/dL 32-36 Automated erythrocyte distribution width ratio 12.5 % 10.0-14.5 Automated blood platelet count (count/volume) 133 10*3/uL 130-400 Automated blood platelet mean volume measurement 11.9 [foz_us] 7.4-10.4 Automated blood neutrophils/100 leukocytes 34 % 42-75 Automated blood lymphocytes/100 leukocytes 54 % 12-44 Blood monocytes/100 leukocytes 8 % 0-12 Automated blood eosinophils/100 leukocytes 3 % 0-10 Automated blood basophils/100 leukocytes 1 % 0-10 Blood neutrophils automated count (number/volume) 2.0 10*3 1.8-7.8 Blood lymphocytes automated count (number/volume) 3.1 10*3 1.0-4.0 Blood monocytes automated count (number/volume) 0.5 10*3 0.0-1.0 Automated eosinophil count 0.2 10*3/uL 0.0-0.3 Automated blood basophil count (count/volume) 0.0 10*3/uL 0.0-0.1 Comprehensive metabolic panel - 04/12/18 14:51 Serum or plasma sodium measurement (moles/volume) 134 mmol/L 135-145 Serum or plasma potassium measurement (moles/volume) 4.1 mmol/L 3.6-5.0 Serum or plasma chloride measurement (moles/volume) 105 mmol/L 98-107 Carbon dioxide 20 mmol/L 21-32 Serum or plasma anion gap determination (moles/volume) 9 mmol/L 5-14 Serum or plasma urea nitrogen measurement (mass/volume) 11 mg/dL 7-18 Serum or plasma creatinine measurement (mass/volume) 0.85 mg/dL 0.60-1.30 Serum or plasma urea nitrogen/creatinine mass ratio 13 NRG Serum or plasma creatinine measurement with calculation of estimated glomerular filtration rate > NRG Serum or plasma glucose measurement (mass/volume) 92 mg/dL 70-105 Serum or plasma calcium measurement (mass/volume) 8.7 mg/dL 8.5-10.1 Serum or plasma total bilirubin measurement (mass/volume) 0.3 mg/dL 0.1-1.0 Serum or plasma alkaline phosphatase measurement (enzymatic activity/volume) 54 U/L 40-136 Serum or plasma aspartate aminotransferase measurement (enzymatic activity/ volume) 12 U/L 5-34 Serum or plasma alanine aminotransferase measurement (enzymatic activity/volume ) 10 U/L 0-55 Serum or plasma protein measurement (mass/volume) 6.9 g/dL 6.4-8.2 Serum or plasma albumin measurement (mass/volume) 3.8 g/dL 3.2-4.5 CALCIUM CORRECTED 8.9 mg/dL 8.5-10.1 Serum or plasma C reactive protein measurement (mass/volume) - 04/12/18 14:51 Serum or plasma C reactive protein measurement (mass/volume) 0.13 mg /dL 0.00-0.50 Complete urinalysis with reflex to culture - 04/12/18 15:05 Urine color determination YELLOW NRG Urine clarity determination CLEAR NRG Urine pH measurement by test strip 7 5-9 Specific gravity of urine by test strip 1.010 1.016- 1.022 Urine protein assay by test strip, semi-quantitative NEGATIVE NEGATIVE Urine glucose detection by automated test strip NEGATIVE NEGATIVE Erythrocytes detection in urine sediment by light microscopy NEGATIVE NEGATIVE Urine ketones detection by automated test strip NEGATIVE NEGATIVE Urine nitrite detection by test strip NEGATIVE NEGATIVE Urine total bilirubin detection by test strip NEGATIVE NEGATIVE Urine urobilinogen measurement by automated test strip (mass/volume) NORMAL NORMAL Urine leukocyte esterase detection by dipstick 1+ NEGATIVE Automated urine sediment erythrocyte count by microscopy (number/high power field) [HPF] NRG Automated urine sediment leukocyte count by microscopy (number/high power field ) [HPF] NRG Bacteria detection in urine sediment by light microscopy FEW NRG Squamous epithelial cells detection in urine sediment by light microscopy 2-5 NRG Crystals detection in urine sediment by light microscopy PRESENT NRG Casts detection in urine sediment by light microscopy NONE NRG Mucus detection in urine sediment by light microscopy NEGATIVE NRG Complete urinalysis with reflex to culture NO NRG Amorphous sediment detection in urine sediment by light microscopy MOD DENISE PHOSPHATE NRG Capillary blood glucose measurement by glucometer (mass/volume) - 08/25/18 16: 52 Capillary blood glucose measurement by glucometer (mass/volume) 93 mg/dL 70-110 Complete blood count (CBC) with automated white blood cell (WBC) differential - 08/25/18 17:35 Blood leukocytes automated count (number/volume) 6.2 10*3/uL 4.3-11.0 Blood erythrocytes automated count (number/volume) 4.05 10*6/uL 4.35-5.85 Venous blood hemoglobin measurement (mass/volume) 12.6 g/dL 11.5-16.0 Blood hematocrit (volume fraction) 38 % 35-52 Automated erythrocyte mean corpuscular volume 94 [foz_us] 80-99 Automated erythrocyte mean corpuscular hemoglobin (mass per erythrocyte) 31 pg 25-34 Automated erythrocyte mean corpuscular hemoglobin concentration measurement ( mass/volume) 33 g/dL 32-36 Automated erythrocyte distribution width ratio 14.6 % 10.0-14.5 Automated blood platelet count (count/volume) 146 10*3/uL 130-400 Automated blood platelet mean volume measurement 11.5 [foz_us] 7.4-10.4 Automated blood neutrophils/100 leukocytes 34 % 42-75 Automated blood lymphocytes/100 leukocytes 50 % 12-44 Blood monocytes/100 leukocytes 11 % 0-12 Automated blood eosinophils/100 leukocytes 4 % 0-10 Automated blood basophils/100 leukocytes 0 % 0-10 Blood neutrophils automated count (number/volume) 2.1 10*3 1.8-7.8 Blood lymphocytes automated count (number/volume) 3.1 10*3 1.0-4.0 Blood monocytes automated count (number/volume) 0.7 10*3 0.0-1.0 Automated eosinophil count 0.3 10*3/uL 0.0-0.3 Automated blood basophil count (count/volume) 0.0 10*3/uL 0.0-0.1 PT panel in platelet poor plasma by coagulation assay - 08/25/18 17:35 Prothrombin time (PT) in platelet poor plasma by coagulation assay 13.8 s 12.2-14.7 INR in platelet poor plasma or blood by coagulation assay 1.1 0.8-1.4 Activated partial thromboplastin time (aPTT) in platelet poor plasma bycoagulation assay - 08/25/18 17:35 Activated partial thromboplastin time (aPTT) in platelet poor plasma bycoagulation assay 41 s 24-35 Fibrin D-dimer FEU measurement in platelet poor plasma (mass/volume) - 17:35 Fibrin D-dimer FEU measurement in platelet poor plasma (mass/volume) 0.61 ug/mL 0.00-0.49 Comprehensive metabolic panel - 08/25/18 17:35 Serum or plasma sodium measurement (moles/volume) 134 mmol/L 135-145 Serum or plasma potassium measurement (moles/volume) 4.2 mmol/L 3.6-5.0 Serum or plasma chloride measurement (moles/volume) 100 mmol/L 98-107 Carbon dioxide 25 mmol/L 21-32 Serum or plasma anion gap determination (moles/volume) 9 mmol/L 5-14 Serum or plasma urea nitrogen measurement (mass/volume) 14 mg/dL 7-18 Serum or plasma creatinine measurement (mass/volume) 0.91 mg/dL 0.60-1.30 Serum or plasma urea nitrogen/creatinine mass ratio 15 NRG Serum or plasma creatinine measurement with calculation of estimated glomerular filtration rate > NRG Serum or plasma glucose measurement (mass/volume) 78 mg/dL 70-105 Serum or plasma calcium measurement (mass/volume) 9.0 mg/dL 8.5-10.1 Serum or plasma total bilirubin measurement (mass/volume) 0.2 mg/dL 0.1-1.0 Serum or plasma alkaline phosphatase measurement (enzymatic activity/volume) 66 U/L 40-136 Serum or plasma aspartate aminotransferase measurement (enzymatic activity/ volume) 13 U/L 5-34 Serum or plasma alanine aminotransferase measurement (enzymatic activity/volume ) 6 U/L 0-55 Serum or plasma protein measurement (mass/volume) 6.6 g/dL 6.4-8.2 Serum or plasma albumin measurement (mass/volume) 3.9 g/dL 3.2-4.5 CALCIUM CORRECTED 9.1 mg/dL 8.5-10.1 Serum or plasma troponin i.cardiac measurement (mass/volume) - 08/25/18 17:35 Serum or plasma troponin i.cardiac measurement (mass/volume) < ng/ mL <0.028 Complete urinalysis with reflex to culture - 08/25/18 17:44 Urine color determination YELLOW NRG Urine clarity determination SLIGHTLY CLOUDY NRG Urine pH measurement by test strip 8 5-9 Specific gravity of urine by test strip 1.015 1.016- 1.022 Urine protein assay by test strip, semi-quantitative NEGATIVE NEGATIVE Urine glucose detection by automated test strip NEGATIVE NEGATIVE Erythrocytes detection in urine sediment by light microscopy NEGATIVE NEGATIVE Urine ketones detection by automated test strip NEGATIVE NEGATIVE Urine nitrite detection by test strip NEGATIVE NEGATIVE Urine total bilirubin detection by test strip NEGATIVE NEGATIVE Urine urobilinogen measurement by automated test strip (mass/volume) NORMAL NORMAL Urine leukocyte esterase detection by dipstick NEGATIVE NEGATIVE Automated urine sediment erythrocyte count by microscopy (number/high power field) NONE NRG Automated urine sediment leukocyte count by microscopy (number/high power field ) NONE NRG Bacteria detection in urine sediment by light microscopy NEGATIVE NRG Squamous epithelial cells detection in urine sediment by light microscopy RARE NRG Crystals detection in urine sediment by light microscopy NONE NRG Casts detection in urine sediment by light microscopy NONE NRG Mucus detection in urine sediment by light microscopy NEGATIVE NRG Complete urinalysis with reflex to culture NO NRG Amorphous sediment detection in urine sediment by light microscopy LARGE DENISE PHOSPHATE NRG Urine drug screening test - 08/25/18 17:44 Urine phencyclidine detection by screening method NEGATIVE NEGATIVE Urine benzodiazepines detection by screening method NEGATIVE NEGATIVE Urine cocaine detection NEGATIVE NEGATIVE Urine amphetamines detection by screening method NEGATIVE NEGATIVE Urine methamphetamine detection by screening method NEGATIVE NEGATIVE Urine cannabinoids detection by screening method POSITIVE NEGATIVE Urine opiates detection by screening method NEGATIVE NEGATIVE Urine barbiturates detection NEGATIVE NEGATIVE Screening urine tricyclic antidepressants detection NEGATIVE NEGATIVE Urine methadone detection by screening method NEGATIVE NEGATIVE Urine oxycodone detection NEGATIVE NEGATIVE Urine propoxyphene detection NEGATIVE NEGATIVE Encounters ACCT No. Visit Date/Time Discharge Status Pt. 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
== END 2018-08-25 19:20 | disposition home or self-care (01) ==
LOC: EDUNIT# 16:35 → ER 16:35
DX: M62.81 Muscle weakness (generalized) (principal); F12.10 Cannabis abuse, uncomplicated; F17.210 Nicotine dependence, cigarettes, uncomplicated; Z88.0 Allergy status to penicillin; Z88.5 Allergy status to narcotic agent; Z88.6 Allergy status to analgesic agent; Z90.710 Acquired absence of both cervix and uterus
CPT/HCPCS: 36415; 70496; 70498; 71045; 80053; 80306; 81000; 82962; 84484; 85025; 85379; 85610; 85730; 93005; 93041

== ENCOUNTER → 2019-01-10 | Outpatient (CLI) | payer MEDICARE, MEDICAID ==
[~2019-01-10] MED LIST changes: +CLOP75TA69 PO
--- NOTE | 2019-01-10 12:26 | Diagnostic Imaging Report ---
Indication: Left knee pain 3 views of the left knee show no fracture, dislocation or appreciable joint effusion. Impression: Negative left knee Dictated by: Dictated on workstation # [id number]
== END ==
LOC: RAD FS 11:30
PROVIDERS: ATTEND Nurse Practitioner Family
DX: M25.562 Pain in left knee (principal)
CPT/HCPCS: 73562

== ENCOUNTER 2019-02-28 10:48 | Emergency (ER) | payer MEDICARE, MEDICAID ==
[~2019-02-28] VITALS: Ht 172.7 cm; Wt 72.6 kg
[2019-02-28] MEDS ORDERED: NS IV 1000 ML 1,000 ML IV SCH (11:48)
[2019-02-28] MEDS ORDERED: diphenhydrAMINE 50 MG/ML INJ (BENADRYL) IM ONE (12:00)
[2019-02-28] MEDS ORDERED: PROCHLORPERAZINE 10 MG/2ML INJ (COMPAZINE) IV ONE (12:00)
[2019-02-28] MEDS ORDERED: KETOROLAC 30 MG/ML VIAL IVP ONE (12:00)
[2019-02-28] MEDS ORDERED: PROMETHAZINE INJ 25 MG/ML (PHENERGAN) AMP IVP ONE (12:00)
--- NOTE | 2019-02-28 12:03 | NUR ---
PT MOVED TO ROOM 08 ET PLACED ON PULSE OX.
[2019-02-28] MEDS ORDERED: BUTORPHANOL INJ 2 MG/ML (STADOL) VIAL IV ONE (12:15)
--- NOTE | 2019-02-28 12:44 | NUR ---
PT SLEEPING WITH EYES CLOSED
--- NOTE | 2019-02-28 13:01 | ED Headache ---
General Chief Complaint: Head/Cervical Problems Stated Complaint: MIGRAINE Nursing Triage Note: MIGRAINE STARTING YESTERDAY. TOOK MEDICATION THIS AM WHICH DID NOT HELP. STATES SHE WAS ALSO WALKING HER DOG AND TURNED AROUND AND RAN INTO A TREEE. COMPLAINS OF NECK PAIN BUT STATES IT IS RELATED TO THE MIGRAINE ET NOT HITTING THE TREE. Nursing Sepsis Screen: No Definite Risk History of Present Illness Date Seen by Provider: Feb 28, 2019 Time Seen by Provider: 11:35 Initial Comments 54 -year-old female presents for migraine 24 hours. She takes preventative and breakthrough medication for migraines, no relief in her symptoms however. She is wearing sunglasses for photophobia. She denies any vomiting however she has mild nausea. In addition earlier today she was walking her dog when she walked under a e branch and hit the top of her head. She denies any change in her symptoms related to that and no loss of consciousness. She denies tenderness at the parietal area where she hit the tree branch. Timing/Duration: 24 hours Severity/Quality: moderate Location: frontal, occipital Prior Headaches/Recent Trauma: chronic headaches Associated Symptoms: No confusion, No fatigue, No facial pain, No fever/chills, No flushing, No loss of consciousness; nausea/vomiting; No nasal congestion, No nasal drainage, No numbness in legs/feet, No rash, No seizures, No sinus infection, No stiff neck, No vision changes, No weakness Allergies and Home Medications Allergies Coded Allergies: Penicillins (Verified Allergy, Unknown, 01/08/08) hydrocodone (Verified Allergy, Unknown, 01/08/08) morphine (Verified Allergy, Unknown, 01/08/08) aspirin (Verified Adverse Reaction, Mild, STOMACH UPSET, 01/10/08) Home Medications Clopidogrel Bisulfate 75 Mg Tablet, 75 MG PO DAILY Prescribed by: AMADO MYERS on 08/25/18 1361 Patient Home Medication List Home Medication List Reviewed: Yes Review of Systems Review of Systems Constitutional: no symptoms reported, see HPI Psychiatric/Neurological: See HPI, Headache All Other Systems Reviewed Negative Unless Noted: Yes Past Syfughr-Pinqck-Pejvuz Hx Past Med/Social Hx: Reviewed Nursing Past Med/Soc Hx Patient Social History Type Used: Cigarettes 2nd Hand Smoke Exposure: Yes Recent Foreign Travel: No Contact w/Someone Who Travel: No Recent Infectious Disease Expo: No Recent Hopitalizations: Yes Past Medical History Surgeries: Yes Respiratory: No Cardiac: No Neurological: Yes Headaches /Migraines Reproductive Disorders: No [employer] History: Hysterectomy Gastrointestinal: Yes Musculoskeletal: Yes Endocrine: Yes Psychosocial: Yes Integumentary: No Blood Disorders: Yes Physical Exam Vital Signs Vital Signs - First Documented 02/28/19 11:29 Temp 95.8 Pulse 58 Resp 16 B/P (MAP) 128/73 (91) Pulse Ox 98 O2 Delivery Room Air Capillary Refill : Less Than 3 Seconds Height, Weight, BMI Height: 5'8.00" Weight: 160lbs. 0oz. 72.800355ef; BMI Method:Stated General Appearance: WD/WN, no apparent distress HEENT: PERRL/EOMI, normal ENT inspection, TMs normal, pharynx normal Neck: non-tender, full range of motion, supple Cardiovascular: normal peripheral pulses, regular rate, rhythm, no murmur Respiratory: chest non-tender, lungs clear, normal breath sounds Gastrointestinal: normal bowel sounds, non tender, soft; No distended, No guarding, No rebound, No tenderness Extremities: normal range of motion, non-tender, normal inspection, normal capillary refill Psychiatric: alert, oriented x 3 Crainal Nerves: normal hearing, normal speech, PERRL Coordination/Gait: normal finger to nose, normal gait Motor/Sensory: no motor deficit, no sensory deficit Skin: normal color, warm/dry Lymphatic: no adenopathy Progress/Results/Core Measures Results/Orders My Orders Orders - LENORE GREEN Ed Iv/Invasive Line Start (02/28/19 11:48) Ns Iv 1000 Ml (Sodium Chloride 0.9%) (02/28/19 11:48) Diphenhydramine Injection (Benadryl Inje (02/28/19 12:00) Promethazine Injection (Phenergan Injec (02/28/19 12:00) Butorphanol Injection (Stadol Injection) (02/28/19 12:15) Medications Given in ED Current Medications Medications Dose Ordered Sig/Tim Route Start Time Stop Time Status Last Admin Dose Admin Butorphanol Tartrate 1 mg ONCE ONCE IV 02/28/19 12:15 02/28/19 12:16 DC 02/28/19 12:10 1 MG Diphenhydramine HCl 25 mg ONCE ONCE IM 02/28/19 12:00 02/28/19 12:01 DC 02/28/19 12:10 25 MG Promethazine HCl 12.5 mg ONCE ONCE IVP 02/28/19 12:00 02/28/19 12:01 DC 02/28/19 12:11 12.5 MG Vital Signs/I&O 02/28/19 02/28/19 11:29 13:40 Temp 95.8 Pulse 58 58 Resp 16 16 B/P (MAP) 128/73 (91) 127/68 (87) Pulse Ox 98 98 O2 Delivery Room Air Room Air Blood Pressure Mean: 91 Progress Progress Note : Time: 11:35 Progress Note Patient seen and evaluated, recommended Toradol 30 mg IV, Compazine 10 mg IV and Benadryl 25 mg IV. Patient reports that she has never had resolution in her symptoms with Compazine or Toradol, will try Stadol 1 mg IV and Phenergan 12.5 mg IV. 1255 patient reports headache has improved, proximal and one half of IV fluids have infuse. Will give the remaining IV fluids and plan discharge to home. 1310 Patient alert and oriented, reports migraine is improved. No N/V. Discharge instructions and return precautions reviewed, all questions answered. Departure Impression Primary Impression: Migraine Qualified Codes: G43.019 - Migraine without aura, intractable, without status migrainosus Disposition: 01 HOME, SELF-CARE Condition: Improved Departure-Patient Inst. Decision time for Depature: 13:00 Referrals: KEILA HSU MD (PCP/Family) Primary Care Physician Patient Instructions: Migraine Headache (DC) Add. Discharge Instructions: Continue to use your migraine medication. Follow-up with your primary care provider or urologist if symptoms are worsening. Increase oral hydration. Return to emergency department for new, urgent health care needs. All discharge instructions reviewed with patient and/or family. Voiced understanding. LENORE GREEN Feb 28, 2019 13:01
--- NOTE | 2019-02-28 13:20 | NUR ---
ASSISTED PT TO THE BATHROOM. SLIGHTLY UNSTEADY ON HER FEET BUT STATES SHE FEELS MUCH BETTER.
[2019-02-28 13:40] VITALS: BP 127/68
== END 2019-02-28 13:40 | disposition home or self-care (01) ==
LOC: EDUNIT# 10:48 → ER 10:49
DX: G43.909 Migraine, unspecified, not intractable, without status migrainosus (principal); Z77.22 Contact with and (suspected) exposure to environmental tobacco smoke (acute) (chronic); Z88.0 Allergy status to penicillin; Z88.5 Allergy status to narcotic agent; Z88.6 Allergy status to analgesic agent; Z79.02 Long term (current) use of antithrombotics/antiplatelets; Z90.710 Acquired absence of both cervix and uterus
CPT/HCPCS: 96372; 96374; 96375

== ENCOUNTER 2019-04-01 13:41 | Emergency (ER) | payer MEDICARE, MEDICAID ==
[~2019-04-01] VITALS: Ht 172 cm; Wt 77.0 kg
[~2019-04-01 13:41] MED LIST changes: -DIVA-76; +DIVA-76 PO; -ESTR1TAB24; +ESTR1TAB24 PO; -IBUP-1780; +IBUP-1780 PO; -LEVO100T7; +LEVO100T7 PO; -OXYB5TAB9; +OXYB5TAB9 PO; -PROP40TA5; +PROP40TA5 PO; -RISP1TAB3; +RISP1TAB3 PO; -TOPI100T11; +TOPI100T11 PO
[2019-04-01] MEDS ORDERED: KETOROLAC 30 MG/ML VIAL IVP ONE (14:15)
[2019-04-01] MEDS ORDERED: FAMOTIDINE 20 MG (PEPCID) TABLET PO ONE (14:15)
--- NOTE | 2019-04-01 14:15 | ED Abdominal Pain ---
General Chief Complaint: Abdominal/GI Problems Stated Complaint: R LOWER ABD PAIN Nursing Triage Note: RLQ PAIN WITH NAUSEA STARTING AT 0100 Sepsis Screen: No Definite Risk Source of Information: Patient Exam Limitations: No Limitations History of Present Illness Date Seen by Provider: Apr 01, 2019 Time Seen by Provider: 13:53 Initial Comments Patient presents to ER by private conveyance with chief complaint that she was awoken at 1:00 in the morning today with some right lower quadrant abdominal pain feels like a sharp knife stabbing her constantly. She has a history of migraine headaches. She has no fever nausea vomiting, diarrhea or constipation. She had a bowel movement yesterday was normal. She tried taking ibuprofen with her last dose being about 8:00 this morning with no relief. She does not take opiates routinely. She has had , hysterectomy, but no appendectomy or cholecystectomy. Allergies and Home Medications Allergies Coded Allergies: Penicillins (Verified Allergy, Unknown, 01/08/08) hydrocodone (Verified Allergy, Unknown, 01/08/08) morphine (Verified Allergy, Unknown, 01/08/08) aspirin (Verified Adverse Reaction, Mild, STOMACH UPSET, 01/10/08) Home Medications Clopidogrel Bisulfate 75 Mg Tablet, 75 MG PO DAILY Prescribed by: AMADO MYERS on 08/25/18 5846 Patient Home Medication List Home Medication List Reviewed: Yes Review of Systems Review of Systems Constitutional: No chills, No fever; malaise EENTM: No Blurred Vision, No Double Vision Respiratory: Denies Cough, Denies Orthopnea Cardiovascular: Denies Chest Pain, Denies Lightheadedness Gastrointestinal: See HPI; Denies Abdomen Distended; Abdominal Pain; Denies Constipated, Denies Diarrhea, Denies Nausea Genitourinary: Denies Burning, Denies Discharge Musculoskeletal: No back pain, No joint pain Skin: No pruritus, No rash Psychiatric/Neurological: Denies Headache, Denies Numbness Past [place]-Idmgef-Flnmvx Hx Patient Social History Alcohol Use: Denies Use Recreational Drug Use: No Smoking Status: Current Everyday Smoker Type Used: Cigarettes 2nd Hand Smoke Exposure: Yes Recent Foreign Travel: No Contact w/Someone Who Travel: No Recent Infectious Disease Expo: No Recent Hopitalizations: Yes Past Medical History Surgeries: Yes Bladder Surgery, Section, Tonsillectomy Respiratory: No Cardiac: No Neurological: Yes Headaches /Migraines Reproductive Disorders: No 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 0oz. 72.411184ic; 26.00 BMI Method:Stated General Appearance: WD/WN, mild distress HEENT: PERRL/EOMI, pharynx normal Respiratory: no respiratory distress, no accessory muscle use Cardiovascular: normal peripheral pulses, regular rate, rhythm Peripheral Pulses: 2+ Radial Pulses (R), 2+ Radial Pulses (L) Gastrointestinal: normal bowel sounds, soft; No rebound; tenderness (right lower quadrant over McBurney's point. Psoas sign positive right side. Negative for Rovsing sign or Ellison sign) Neurologic/Psychiatric: alert, normal mood/affect, oriented x 3 Skin: normal color, warm/dry Progress/Results/Core Measures Results/Orders Lab Results Laboratory Tests Test 04/01/19 14:11 04/01/19 15:27 Range/Units White Blood Count 8.5 4.3-11.0 10^3/uL Red Blood Count 3.78 L 4.35-5.85 10^6/uL Hemoglobin 12.5 11.5-16.0 G/DL Hematocrit 36 35-52 % Mean Corpuscular Volume 96 80-99 FL Mean Corpuscular Hemoglobin 33 25-34 PG Mean Corpuscular Hemoglobin Concent 34 32-36 G/DL Red Cell Distribution Width 12.2 10.0-14.5 % Platelet Count 145 130-400 10^3/uL Mean Platelet Volume 10.6 H 7.4-10.4 FL Neutrophils (%) (Auto) 59 42-75 % Lymphocytes (%) (Auto) 28 12-44 % Monocytes (%) (Auto) 12 0-12 % Eosinophils (%) (Auto) 2 0-10 % Basophils (%) (Auto) 0 0-10 % Neutrophils # (Auto) 5.0 1.8-7.8 X 10^3 Lymphocytes # (Auto) 2.3 1.0-4.0 X 10^3 Monocytes # (Auto) 1.0 0.0-1.0 X 10^3 Eosinophils # (Auto) 0.2 0.0-0.3 10^3/uL Basophils # (Auto) 0.0 0.0-0.1 10^3/uL Sodium Level 131 L 135-145 MMOL/L Potassium Level 4.3 3.6-5.0 MMOL/L Chloride Level 100 98-107 MMOL/L Carbon Dioxide Level 20 L 21-32 MMOL/L Anion Gap 11 5-14 MMOL/L Blood Urea Nitrogen 18 7-18 MG/DL Creatinine 0.89 0.60-1.30 MG/DL Estimat Glomerular Filtration Rate > 60 BUN/Creatinine Ratio 20 Glucose Level 94 70-105 MG/DL Calcium Level 8.6 8.5-10.1 MG/DL Corrected Calcium 8.9 8.5-10.1 MG/DL Total Bilirubin 0.2 0.1-1.0 MG/DL Aspartate Amino Transf (AST/SGOT) 13 5-34 U/L Alanine Aminotransferase (ALT/SGPT) 14 0-55 U/L Alkaline Phosphatase 56 40-136 U/L C-Reactive Protein High Sensitivity 0.05 0.00-0.50 MG/DL Total Protein 6.6 6.4-8.2 GM/DL Albumin 3.6 3.2-4.5 GM/DL Urine Color YELLOW Urine Clarity CLEAR Urine pH 6 5-9 Urine Specific Fluker 1.015 L 1.016-1.022 Urine Protein NEGATIVE NEGATIVE Urine Glucose (UA) NEGATIVE NEGATIVE Urine Ketones NEGATIVE NEGATIVE Urine Nitrite NEGATIVE NEGATIVE Urine Bilirubin NEGATIVE NEGATIVE Urine Urobilinogen NORMAL NORMAL MG/DL Urine Leukocyte Esterase NEGATIVE NEGATIVE Urine RBC (Auto) 1+ H NEGATIVE Urine RBC 0-2 /HPF Urine WBC NONE /HPF Urine Squamous Epithelial Cells 2-5 /HPF Urine Crystals NONE /LPF Urine Bacteria NEGATIVE /HPF Urine Casts NONE /LPF Urine Mucus NEGATIVE /LPF Urine Culture Indicated NO Urine Opiates Screen NEGATIVE NEGATIVE Urine Oxycodone Screen NEGATIVE NEGATIVE Urine Methadone Screen NEGATIVE NEGATIVE Urine Propoxyphene Screen NEGATIVE NEGATIVE Urine Barbiturates Screen NEGATIVE NEGATIVE Ur Tricyclic Antidepressants Screen NEGATIVE NEGATIVE Urine Phencyclidine Screen NEGATIVE NEGATIVE Urine Amphetamines Screen NEGATIVE NEGATIVE Urine Methamphetamines Screen NEGATIVE NEGATIVE Urine Benzodiazepines Screen NEGATIVE NEGATIVE Urine Cocaine Screen NEGATIVE NEGATIVE Urine Cannabinoids Screen POSITIVE H NEGATIVE My Orders Orders - HELADIO PÉREZ Ua Culture If Indicated (04/01/19 13:43) Cbc With Automated Diff (04/01/19 14:08) Comprehensive Metabolic Panel (04/01/19 14:08) Hs C Reactive Protein (04/01/19 14:08) Famotidine Tablet (Pepcid Tablet) (04/01/19 14:15) Ketorolac Injection (Toradol Injection) (04/01/19 14:15) Drug Screen Stat (Urine) (04/01/19 14:08) Ed Iv/Invasive Line Start (04/01/19 14:17) Ns Iv 1000 Ml (Sodium Chloride 0.9%) (04/01/19 14:17) Fentanyl Injection (Sublimaze Injection (04/01/19 15:15) Prochlorperazine Injection (Compazine In (04/01/19 15:15) Diphenhydramine Tablet (Benadryl Tablet) (04/01/19 15:15) Fentanyl Injection (Sublimaze Injection (04/01/19 15:45) Medications Given in ED Current Medications Medications Dose Ordered Sig/Tim Route Start Time Stop Time Status Last Admin Dose Admin Diphenhydramine HCl 25 mg ONCE ONCE PO 04/01/19 15:15 04/01/19 15:16 DC 04/01/19 15:22 25 MG Famotidine 20 mg ONCE ONCE PO 04/01/19 14:15 04/01/19 14:16 DC 04/01/19 14:20 20 MG Fentanyl Citrate 50 mcg ONCE ONCE IVP 04/01/19 15:15 04/01/19 15:16 DC 04/01/19 15:24 50 MCG Fentanyl Citrate 50 mcg ONCE ONCE IVP 04/01/19 15:45 04/01/19 15:46 DC 04/01/19 16:06 50 MCG Ketorolac Tromethamine 30 mg ONCE ONCE IVP 04/01/19 14:15 04/01/19 14:16 DC 04/01/19 14:19 30 MG Prochlorperazine Edisylate 10 mg ONCE ONCE IV 04/01/19 15:15 04/01/19 15:16 DC 04/01/19 15:21 10 MG Vital Signs/I&O 04/01/19 13:46 Temp 36.6 Pulse 71 Resp 16 B/P (MAP) 146/84 (104) Pulse Ox 98 O2 Delivery Room Air Blood Pressure Mean: 104 Progress Progress Note #1: Time: 14:16 Progress Note Toradol, fluids and lab. If her pain persists we can give him fentanyl and obtain a CT. She's had presentations like this before as well as a history of migraines so an abdominal migraine in the differential. Appendix, diverticulitis, colitis etc. as well. Progress Note #2: Time: 16:25 Progress Note The patient indicated that her pain was only marginally helped by the fentanyl so suspecting she might have abdominal migraine versus cyclical vomiting we gave her Compazine and some more fentanyl. She is now sleeping has no longer a tender abdomen and unremarkable labs and stable vital signs. We have offered to do a CT versus allow her to just go home and follow up outpatient and explore these avenues and she preferred option B. Departure Impression Primary Impression: Cyclical vomiting Additional Impression: Abdominal migraine, not intractable Disposition: 01 HOME, SELF-CARE Condition: Improved Departure-Patient Inst. Decision time for Depature: 16:28 Referrals: KEILA HSU MD (PCP/Family) Primary Care Physician Patient Instructions: Abdominal Migraine, Nausea and Vomiting, Adult (DC) Add. Discharge Instructions: Compazine 1 tablet by mouth every 8 hours as needed for nausea or vomiting. Take it with a tablet of Benadryl to help reduce the side effects. Tylenol and Motrin as necessary for pain. Follow-up with Dr. Hsu by calling for an appointment tomorrow morning and requesting further workup as necessary. All discharge instructions reviewed with patient and/or family. Voiced understanding. Scripts Prochlorperazine Maleate (Compazine) 10 Mg Tablet 10 MG PO Q8H PRN for NAUSEA/VOMITING-2ND LINE, #8 TAB 0 Refills Prov: HELADIO PÉREZ 04/01/19 Ondansetron (Ondansetron Odt) 4 Mg Tab.rapdis 4 MG PO Q6H PRN for NAUSEA/VOMITING, #8 TAB 0 Refills Prov: HELADIO PÉREZ 04/01/19 HEALDIO PÉREZ Apr 01, 2019 14:15
[2019-04-01] MEDS ORDERED: NS IV 1000 ML 1,000 ML IV SCH (14:17)
[2019-04-01 14:18] LABS: BASOPHILS % (AUTO) 0 % (0-10); EOSINOPHILS # (AUTO) 0.2 10^3/uL (0.0-0.3); EOSINOPHILS % (AUTO) 2 % (0-10); HEMATOCRIT 36 % (35-52); HEMOGLOBIN 12.5 G/DL (11.5-16.0); LYMPHOCYTES # (AUTO) 2.3 X 10^3 (1.0-4.0); LYMPHOCYTES % (AUTO) 28 % (12-44); MEAN CORPUSCULAR HEMOGLOBIN 33 PG (25-34); MEAN CORPUSCULAR HGB CONC 34 G/DL (32-36); MEAN CORPUSCULAR VOLUME 96 FL (80-99); MEAN PLATELET VOLUME 10.6 FL (7.4-10.4); MONOCYTES % (AUTO) 12 % (0-12); NEUTROPHILS % (AUTO) 59 % (42-75); PLATELET COUNT 145 10^3/uL (130-400); RED CELL DISTRIBUTION WIDTH 12.2 % (10.0-14.5); WHITE BLOOD COUNT 8.5 10^3/uL (4.3-11.0)
--- NOTE | 2019-04-01 14:27 | NUR ---
WARM BLANKET GIVEN
[2019-04-01 14:54] LABS: ALANINE AMINOTRANSFERASE 14 U/L (0-55); ALBUMIN 3.6 GM/DL (3.2-4.5); ALKALINE PHOSPHATASE 56 U/L (40-136); BILIRUBIN,TOTAL 0.2 MG/DL (0.1-1.0); BUN/CREATININE RATIO 20; CALCIUM 8.6 MG/DL (8.5-10.1); CARBON DIOXIDE 20 MMOL/L (21-32); CHLORIDE 100 MMOL/L (98-107); CREATININE SERUM 0.89 MG/DL (0.60-1.30); GFR ESTIMATED > 60; GLUCOSE 94 MG/DL (70-105); POTASSIUM 4.3 MMOL/L (3.6-5.0); SODIUM 131 MMOL/L (135-145); TOTAL PROTEIN 6.6 GM/DL (6.4-8.2)
--- NOTE | 2019-04-01 15:00 | NUR ---
TO ROOM LYING ON SIDE EYES CLOSED WOKE PATIENT UP SHE REPORTS PAIN NOT ANY BETTER.
[2019-04-01] MEDS ORDERED: fentaNYL INJECTION 100 MCG/2 ML AMP IVP ONE ×2 (15:15→15:45)
[2019-04-01] MEDS ORDERED: PROCHLORPERAZINE 10 MG/2ML INJ (COMPAZINE) IV ONE (15:15)
[2019-04-01] MEDS ORDERED: diphenhydrAMINE 25 MG TAB (BENADRYL) PO ONE (15:15)
[2019-04-01 15:43] LABS: BILIRUBIN,URINE NEGATIVE (NEGATIVE); CLARITY,URINE CLEAR; COLOR,URINE YELLOW; GLUCOSE, URINE (UA) NEGATIVE (NEGATIVE); KETONES,URINE NEGATIVE (NEGATIVE); LEUKOCYTE ESTERASE ,URINE NEGATIVE (NEGATIVE); NITRITE,URINE NEGATIVE (NEGATIVE); PH,URINE 6 (5-9); PROTEIN,URINE NEGATIVE (NEGATIVE); UROBILINOGEN,URINE NORMAL (NORMAL)
[2019-04-01 15:50] LABS: BACTERIA,URINE NEGATIVE /HPF; RBC,URINE 0-2 /HPF
[2019-04-01 15:57] LABS: AMPHETAMINE SCREEN, URINE NEGATIVE (NEGATIVE); BARBITURATE SCREEN URINE NEGATIVE (NEGATIVE); BENZODIAZEPINES SCREEN URINE NEGATIVE (NEGATIVE); CANNABINOID SCREEN, URINE POSITIVE (NEGATIVE); COCAINE SCREEN URINE NEGATIVE (NEGATIVE); METHADONE STAT NEGATIVE (NEGATIVE); METHAMPHETAMINE SCREEN URINE S NEGATIVE (NEGATIVE); OPIATE SCREEN URINE NEGATIVE (NEGATIVE); OXYCODONE STAT NEGATIVE (NEGATIVE); PROPOXYPHENE STAT NEGATIVE (NEGATIVE); TRICYCLIC ANTIDEPRESSANTS SCRE NEGATIVE (NEGATIVE)
--- NOTE | 2019-04-01 16:09 | NUR ---
PAIN MEDS GIVEN HAD TO WAKE PATIENT UP TO GIVE PAIN MEDS RATE AT 10/10
--- NOTE | 2019-04-01 16:20 | NUR ---
DAUGHTER NEEDS TO GET HOME TALKING WITH DAUGHTER AND PATIENT IF THEY WANT CT SCAN
[2019-04-01] MEDS ORDERED: ONDA4TAB11 PO (16:31)
[2019-04-01] MEDS ORDERED: PROC-1 PO (16:31)
[2019-04-01 16:37] VITALS: BP 119/77
[2019-04-05] MEDS ORDERED: OXYC1TAB87 PO (16:27)
== END 2019-04-01 16:37 | disposition home or self-care (01) ==
LOC: EDUNIT# 13:41 → ER 13:42
DX: G43.A0 Cyclical vomiting, in migraine, not intractable (principal); G43.D0 Abdominal migraine, not intractable; F41.9 Anxiety disorder, unspecified; F32.9 Major depressive disorder, single episode, unspecified; F43.10 Post-traumatic stress disorder, unspecified; F17.210 Nicotine dependence, cigarettes, uncomplicated; Z90.710 Acquired absence of both cervix and uterus; Z90.89 Acquired absence of other organs; Z90.49 Acquired absence of other specified parts of digestive tract; Z88.0 Allergy status to penicillin; Z86.69 Personal history of other diseases of the nervous system and sense organs; Z88.5 Allergy status to narcotic agent; Z88.6 Allergy status to analgesic agent; Z79.02 Long term (current) use of antithrombotics/antiplatelets
CPT/HCPCS: 36415; 80053; 80306; 81000; 85025; 86141

== ENCOUNTER 2019-04-02 20:47 | Inpatient (IN) | payer MEDICARE, MEDICAID ==
[~2019-04-02] VITALS: Ht 172.7 cm; Wt 77.0 kg
[~2019-04-02 20:47] MED LIST changes: +ONDA4TAB11 PO; +PROC-1 PO
[2019-04-02] MEDS ORDERED: LACTATED RINGERS 1,000 ML IV ONE (21:13)
[2019-04-02] MEDS ORDERED: ONDANSETRON 4 MG/2 ML (SDV) Z0FRAN IVP ONE (21:15)
[2019-04-02] MEDS ORDERED: HYOSCYAMINE 0.125 MG (LEVSIN) TAB SL ONE (21:15)
[2019-04-02 21:20] LABS: BASOPHILS % (AUTO) 0 % (0-10); EOSINOPHILS # (AUTO) 0.3 10^3/uL (0.0-0.3); EOSINOPHILS % (AUTO) 3 % (0-10); HEMATOCRIT 44 % (35-52); HEMOGLOBIN 15.1 G/DL (11.5-16.0); LYMPHOCYTES # (AUTO) 2.7 X 10^3 (1.0-4.0); LYMPHOCYTES % (AUTO) 22 % (12-44); MEAN CORPUSCULAR HEMOGLOBIN 33 PG (25-34); MEAN CORPUSCULAR HGB CONC 34 G/DL (32-36); MEAN CORPUSCULAR VOLUME 96 FL (80-99); MEAN PLATELET VOLUME 11.2 FL (7.4-10.4); MONOCYTES % (AUTO) 16 % (0-12); NEUTROPHILS # (AUTO) 7.2 X 10^3 (1.8-7.8); NEUTROPHILS % (AUTO) 59 % (42-75); PLATELET COUNT 190 10^3/uL (130-400); RED CELL DISTRIBUTION WIDTH 12.8 % (10.0-14.5); WHITE BLOOD COUNT 12.1 10^3/uL (4.3-11.0)
[2019-04-02 21:29] LABS: CLARITY,URINE CLEAR; COLOR,URINE YELLOW; GLUCOSE, URINE (UA) NEGATIVE (NEGATIVE); KETONES,URINE 2+ (NEGATIVE); LEUKOCYTE ESTERASE ,URINE 1+ (NEGATIVE); NITRITE,URINE NEGATIVE (NEGATIVE); PH,URINE 6 (5-9); PROTEIN,URINE 2+ (NEGATIVE)
[2019-04-02] MEDS ORDERED: IOHEXOL 350 MG/ML 100 ML (OMNIPAQUE 350) VIAL IV ONE (21:30)
[2019-04-02] MEDS ORDERED: NS 100 ML (IVPB) BAG IV ONE (21:30)
[2019-04-02] MEDS ORDERED: KETOROLAC 30 MG/ML VIAL IVP ONE (21:30)
--- NOTE | 2019-04-02 21:30 | NUR ---
PT TO CT DEPT VIA W/C
[2019-04-02 21:32] LABS: ALANINE AMINOTRANSFERASE 15 U/L (0-55); ALBUMIN 3.8 GM/DL (3.2-4.5); ALKALINE PHOSPHATASE 55 U/L (40-136); AMYLASE 44 U/L (25-125); BILIRUBIN,TOTAL 0.5 MG/DL (0.1-1.0); BUN/CREATININE RATIO 13; CALCIUM 9.2 MG/DL (8.5-10.1); CARBON DIOXIDE 22 MMOL/L (21-32); CHLORIDE 97 MMOL/L (98-107); GFR ESTIMATED 46; GLUCOSE 139 MG/DL (70-105); LIPASE 17 U/L (8-78); MAGNESIUM 1.7 MG/DL (1.6-2.4); POTASSIUM 3.9 MMOL/L (3.6-5.0); SODIUM 131 MMOL/L (135-145); TOTAL PROTEIN 7.2 GM/DL (6.4-8.2)
[2019-04-02 21:33] LABS: BILIRUBIN,URINE 1+ (NEGATIVE)
[2019-04-02 21:34] LABS: BACTERIA,URINE TRACE /HPF; WBC,URINE RARE /HPF
[2019-04-02 21:39] LABS: AMPHETAMINE SCREEN, URINE NEGATIVE (NEGATIVE); BARBITURATE SCREEN URINE NEGATIVE (NEGATIVE); BENZODIAZEPINES SCREEN URINE NEGATIVE (NEGATIVE); CANNABINOID SCREEN, URINE POSITIVE (NEGATIVE); COCAINE SCREEN URINE NEGATIVE (NEGATIVE); METHADONE STAT NEGATIVE (NEGATIVE); METHAMPHETAMINE SCREEN URINE S NEGATIVE (NEGATIVE); OPIATE SCREEN URINE NEGATIVE (NEGATIVE); OXYCODONE STAT NEGATIVE (NEGATIVE); PROPOXYPHENE STAT NEGATIVE (NEGATIVE); TRICYCLIC ANTIDEPRESSANTS SCRE NEGATIVE (NEGATIVE)
--- NOTE | 2019-04-02 21:46 | ED Abdominal Pain ---
General Chief Complaint: Abdominal/GI Problems Stated Complaint: LOWER ABD PAIN Nursing Triage Note: PT PRESENTS TO THE ED AMBULATORY TO ROOM 6, STATES SHE WAS SEEN IN THE ED YESTERDAY FOR ABD. PAIN, STATES HER SYMPTOMS HAVE NOT IMPROVED, VERBALIZING RUQ PAIN AND ABD TENDERNESS, STATES SHE VOMITIED ONCE TODAY AFTER USING MARIJUANNA FOR HER PAIN Sepsis Screen: No Definite Risk Source of Information: Patient (EXTREMELY VAGUE AND DIFFICULT HISTORIAN. VERY SLOW / DELAYED MENTATION--APPEARS TO BE UNDER THE INFLUENCE OF SOME SUBSTANCE/S), Old Records History of Present Illness Date Seen by Provider: Apr 02, 2019 Time Seen by Provider: 21:05 Initial Comments PT ARRIVES VIA POV STATES SHE IS "NOT FEELING GOOD" --IS EXTREMELY DIFFICULT TO GET PT TO GIVE ANY SYMPTOMS OR EVEN TO TALK PT STATES "STABBING" IN RLQ AND RADIATES TO RIGHT LOWER BACK. THEN STATES IT GOES ALL ACROSS HER WHOLE ABDOMEN STATES PAIN IS WORSE WITH MOVEMENTS, NOTHING IMPROVES PAIN. STATES SHE TOOK 1 IBUPROFEN AT 1300 TODAY WITHOUT RELIEF. STATES SYMPTOMS ONGOING FOR A COUPLE OF DAYS C/O NAUSEA AND STATES SHE VOMITED IN THE PARKING LOT LAST BM WAS YESTERDAY AND WAS NORMAL. C/O PAIN ON URINATION, CANNOT STATE WHEN SHE LAST VOIDED NO FEVER LAST FOOD INTAKE WAS "BREAKFAST" AT NOON--HAD EGGS. HAS HAD A LITTLE BIT OF WATER TO DRINK TODAY. PT SEEN HERE YESTERDAY FOR SAME. HAD LAB DONE, AND DECLINED CT AT THAT TIME. PT USES MARIJUANA ON A DAILY BASIS, INCLUDING TODAY--STATES SHE "TOOK IT FOR THE PAIN" TODAY PT HAS HAD HYST/BSO, X 2; BLADDER SURGERY X 2 STILL HAS APPENDIX AND GALLBLADDER. PCP: DR. HSU Allergies and Home Medications Allergies Coded Allergies: Penicillins (Verified Allergy, Unknown, 01/08/08) hydrocodone (Verified Allergy, Unknown, 01/08/08) morphine (Verified Allergy, Unknown, 01/08/08) aspirin (Verified Adverse Reaction, Mild, STOMACH UPSET, 01/10/08) Home Medications Clopidogrel Bisulfate 75 Mg Tablet, 75 MG PO DAILY Prescribed by: AMADO MYERS on 08/25/18 4481 Ondansetron 4 Mg Tab.rapdis, 4 MG PO Q6H PRN for NAUSEA/VOMITING Prescribed by: HELADIO PÉREZ on 04/01/19 1631 Prochlorperazine Maleate 10 Mg Tablet, 10 MG PO Q8H PRN for NAUSEA/VOMITING-2ND LINE Prescribed by: HELADIO PÉREZ on 04/01/19 1631 Patient Home Medication List Home Medication List Reviewed: Yes Review of Systems Review of Systems Constitutional: no symptoms reported; No chills, No diaphoresis, No fever Respiratory: No Symptoms Reported Cardiovascular: No Symptoms Reported Gastrointestinal: See HPI, Abdominal Pain; Denies Constipated, Denies Diarrhea; Nausea, Poor Appetite, Poor Fluid Intake, Vomiting Genitourinary: See HPI, Burning, Flank Pain, Pain Musculoskeletal: see HPI, back pain Skin: no symptoms reported Psychiatric/Neurological: See HPI Endocrine: No Symptoms Reported Hematologic/Lymphatic: No Symptoms Reported Past Mkyjwew-Rwsruj-Kioqga Hx Past Med/Social Hx: Reviewed and Corrections made Patient Social History Alcohol Use: Regular Use (HISTORY OF ABUSE/HEAVY USE, CLAIMS "NONE FOR A FEW MONTHS" PER PT ON 04/02/19) Alcohol Beverage of Choice: Beer Recreational Drug Use: Yes (THC ON REGULAR / DAILY BASIS) Drug of Choice: SMOKES MARIJUANA ON REGULAR BASIS Smoking Status: Current Everyday Smoker (1 1/2 PPD) Type Used: Cigarettes (1 1/2 PPD) 2nd Hand Smoke Exposure: Yes Recent Foreign Travel: No Contact w/Someone Who Travel: No Recent Infectious Disease Expo: No Recent Hopitalizations: Yes Immunizations Up To Date Tetanus Booster (TDap): Less than 5yrs PED Vaccines UTD: Yes Past Medical History Surgeries: Yes (HYST/BSO; X 2; BLADDER SUGERY X 2; CARDIAC CATH 2007--NORMAL) Bladder Surgery, Section, Hysterectomy, Oophorectomy, Tonsillectomy Respiratory: No Cardiac: No (CARDIAC CATH 2007--NORMAL. 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 INTERSTITIAL CYSTITIS ? ) Gastrointestinal: No Musculoskeletal: Yes Back Injury, Chronic Back Pain Endocrine: Yes Hypothyroidsim HEENT: Yes (POOR DENTITION ) Cancer: No Psychosocial: Yes (SUBSTANCE ABUSE; "ANGER ISSUES" ) Anxiety, PTSD, Depression Integumentary: No Blood Disorders: Yes Physical Exam Vital Signs Vital Signs - First Documented 04/02/19 20:52 Temp 36.4 Pulse 65 Resp 20 B/P (MAP) 112/74 (87) Pulse Ox 97 O2 Delivery Room Air Capillary Refill : Less Than 3 Seconds Height/Weight/BMI Height: 5'8.00" Weight: 160lbs. 0oz. 72.927569li; 26.00 BMI Method:Stated General Appearance: WD/WN, no apparent distress, other (VERY FLAT AFFECT, MOSTLY JUST HAS A BLANK STARE AND "SPACES OUT" AND SIMPLY DOES NOT TALK. MENTATION IS VERY SLOWED / VERY DELAYED RESPONSES. APPEARS TO BE UNDER THE INFLUENCE OF SOME SUBSTANCE/S. WALKS VERY SLOWLY, AND SLIGHTLY BENT AT WAIST. 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, no motor/sensory deficits, alert, oriented x 3, other (MENTATION ABOVE) Skin: normal color, warm/dry Progress/Results/Core Measures Results/Orders Lab Results Laboratory Tests Test 04/02/19 21:00 04/02/19 21:23 Range/Units White Blood Count 12.1 H 4.3-11.0 10^3/uL Red Blood Count 4.64 4.35-5.85 10^6/uL Hemoglobin 15.1 # 11.5-16.0 G/DL Hematocrit 44 35-52 % Mean Corpuscular Volume 96 80-99 FL Mean Corpuscular Hemoglobin 33 25-34 PG Mean Corpuscular Hemoglobin Concent 34 32-36 G/DL Red Cell Distribution Width 12.8 10.0-14.5 % Platelet Count 190 130-400 10^3/uL Mean Platelet Volume 11.2 H 7.4-10.4 FL Neutrophils (%) (Auto) 59 42-75 % Lymphocytes (%) (Auto) 22 12-44 % Monocytes (%) (Auto) 16 H 0-12 % Eosinophils (%) (Auto) 3 0-10 % Basophils (%) (Auto) 0 0-10 % Neutrophils # (Auto) 7.2 1.8-7.8 X 10^3 Lymphocytes # (Auto) 2.7 1.0-4.0 X 10^3 Monocytes # (Auto) 2.0 H 0.0-1.0 X 10^3 Eosinophils # (Auto) 0.3 0.0-0.3 10^3/uL Basophils # (Auto) 0.0 0.0-0.1 10^3/uL Sodium Level 131 L 135-145 MMOL/L Potassium Level 3.9 3.6-5.0 MMOL/L Chloride Level 97 L 98-107 MMOL/L Carbon Dioxide Level 22 21-32 MMOL/L Anion Gap 12 5-14 MMOL/L Blood Urea Nitrogen 16 7-18 MG/DL Creatinine 1.20 0.60-1.30 MG/DL Estimat Glomerular Filtration Rate 46 BUN/Creatinine Ratio 13 Glucose Level 139 H 70-105 MG/DL Calcium Level 9.2 8.5-10.1 MG/DL Corrected Calcium 9.4 8.5-10.1 MG/DL Magnesium Level 1.7 1.6-2.4 MG/DL Total Bilirubin 0.5 0.1-1.0 MG/DL Aspartate Amino Transf (AST/SGOT) 15 5-34 U/L Alanine Aminotransferase (ALT/SGPT) 15 0-55 U/L Alkaline Phosphatase 55 40-136 U/L Total Protein 7.2 6.4-8.2 GM/DL Albumin 3.8 3.2-4.5 GM/DL Amylase Level 44 25-125 U/L Lipase 17 8-78 U/L Serum Alcohol < 10 <10 MG/DL Urine Color YELLOW Urine Clarity CLEAR Urine pH 6 5-9 Urine Specific Irma 1.025 H 1.016-1.022 Urine Protein 2+ H NEGATIVE Urine Glucose (UA) NEGATIVE NEGATIVE Urine Ketones 2+ H NEGATIVE Urine Nitrite NEGATIVE NEGATIVE Urine Bilirubin 1+ H NEGATIVE Urine Urobilinogen 4 H NORMAL MG/DL Urine Leukocyte Esterase 1+ H NEGATIVE Urine RBC (Auto) NEGATIVE NEGATIVE Urine RBC NONE /HPF Urine WBC RARE /HPF Urine Squamous Epithelial Cells 5-10 /HPF Urine Crystals NONE /LPF Urine Bacteria TRACE /HPF Urine Casts PRESENT /LPF Urine Hyaline Casts 2-5 H /LPF Urine Mucus SMALL H /LPF Urine Culture Indicated NO Urine Opiates Screen NEGATIVE NEGATIVE Urine Oxycodone Screen NEGATIVE NEGATIVE Urine Methadone Screen NEGATIVE NEGATIVE Urine Propoxyphene Screen NEGATIVE NEGATIVE Urine Barbiturates Screen NEGATIVE NEGATIVE Ur Tricyclic Antidepressants Screen NEGATIVE NEGATIVE Urine Phencyclidine Screen NEGATIVE NEGATIVE Urine Amphetamines Screen NEGATIVE NEGATIVE Urine Methamphetamines Screen NEGATIVE NEGATIVE Urine Benzodiazepines Screen NEGATIVE NEGATIVE Urine Cocaine Screen NEGATIVE NEGATIVE Urine Cannabinoids Screen POSITIVE H NEGATIVE My Orders Orders - BRODYJAMAL Gonzalez DO Drug Screen Stat (Urine) (04/02/19 21:03) Ua Culture If Indicated (04/02/19 21:03) Ed Iv/Invasive Line Start (04/02/19 21:13) Alcohol (04/02/19 21:13) Amylase (04/02/19 21:13) Cbc With Automated Diff (04/02/19 21:13) Comprehensive Metabolic Panel (04/02/19 21:13) Lipase (04/02/19 21:13) Magnesium (04/02/19 21:13) Ed Iv/Invasive Line Start (04/02/19 21:13) Lactated Ringers (Lr 1000 Ml Iv Solution (04/02/19 21:13) Ondansetron Injection (Zofran Injectio (04/02/19 21:15) Hyoscyamine Sl Tablet (Levsin Sl Tablet) (04/02/19 21:15) Ct Abd/Pelv W (Appendicitis) (04/02/19 21:16) Acute Abd Series (04/02/19 21:16) Ketorolac Injection (Toradol Injection) (04/02/19 21:30) Iohexol Injection (Omnipaque 350 Mg/Ml 1 (04/02/19 21:30) Ns (Ivpb) (Sodium Chloride 0.9% Ivpb Bag (04/02/19 21:30) Medications Given in ED Current Medications Medications Dose Ordered Sig/Tim Route Start Time Stop Time Status Last Admin Dose Admin Hyoscyamine Sulfate 0.25 mg ONCE ONCE SL 04/02/19 21:15 04/02/19 21:16 DC 04/02/19 21:55 0.25 MG Iohexol 100 ml ONCE ONCE IV 04/02/19 21:30 04/02/19 21:56 DC 04/02/19 21:36 100 ML Ketorolac Tromethamine 30 mg ONCE ONCE IVP 04/02/19 21:30 04/02/19 21:31 DC 04/02/19 22:01 30 MG Lactated Ringer's 1,000 ml @ 0 mls/hr Q0M ONCE IV 04/02/19 21:13 04/02/19 21:16 DC 04/02/19 22:00 1,000 MLS/HR Ondansetron HCl 8 mg ONCE ONCE IVP 04/02/19 21:15 04/02/19 21:16 DC 04/02/19 22:00 8 MG Sodium Chloride 80 ml ONCE ONCE IV 04/02/19 21:30 04/02/19 21:56 DC 04/02/19 21:36 80 ML Vital Signs/I&O 04/02/19 20:52 Temp 36.4 Pulse 65 Resp 20 B/P (MAP) 112/74 (87) Pulse Ox 97 O2 Delivery Room Air Blood Pressure Mean: 87 Progress Progress Note : Progress Note GIVEN ZOFRAN, LEVSIN, TORADOL AND PROTONIX--SYMPTOMS MUCH IMPROVED NO DETERIORATION IN PT'S CONDITION DURING ER STAY Diagnostic Imaging Comments ABDOMEN XRAYS--SMALL BOWEL OBSTRUCTION CT ABDOMEN/PELVIS--MODERATE ASCITES, HIGH GRADE SMALL BOWEL OBSTRUCTION PER RADIOLOGIST REPORTS AT 2200 Reviewed: Reviewed by Me Departure Communication (Admissions) 2204--SPOKE WITH DR. WEBSTER, SURGEON HAND GLUER AND SLICER. ACCEPTS PT FOR ADMIT. Impression Primary Impression: SBO (small bowel obstruction) Additional Impressions: Marijuana use, continuous Hyponatremia Disposition: ADMITTED INPATIENT Condition: Improved Admissions Decision to Admit Reason: Admit from ER (General) Decision to Admit/Date: Apr 02, 2019 Time/Decision to Admit Time: 22:00 Departure-Patient Inst. Referrals: KEILA HSU MD (PCP/Family) Primary Care Physician JAMAL SKINNER DO Apr 02, 2019 21:46
--- NOTE | 2019-04-02 21:55 | Diagnostic Imaging Report ---
INDICATION: Right upper quadrant abdominal pain. CT of the abdomen and pelvis obtained with IV contrast bolus. Comparison made to 04/12/2018. The visualized portions of the lung bases show some mild atelectatic changes in the lingula and right middle lobe. There is no pleural fluid or free intraperitoneal air. There is diffuse ascites. The liver shows a tiny cyst in the left lobe which is stable compared to the prior study. Gallbladder appears unremarkable. The spleen, adrenals, and pancreas appear normal. The kidneys bilaterally show small cysts but no hydronephrosis or mass. There is no retroperitoneal mass or adenopathy. There are atherosclerotic changes of the aorta without evidence of aneurysm. There is diffuse dilatation of small bowel loops which are fluid filled in appearance. There is decompression of the distal most small bowel loops. Findings are compatible with high-grade small bowel obstruction. The colon is decompressed. Appendix is not well visualized. IMPRESSION: There is new ascites compared to 04/12/2018. There is prominent dilatation of proximal to mid small bowel loops with decompression of distal most portion of small bowel. The findings are compatible with high-grade small bowel obstruction. There are benign-appearing cysts in the kidneys as well as in the left lobe of the liver. Dictated by: Dictated on workstation # [id number]
--- NOTE | 2019-04-02 21:59 | Diagnostic Imaging Report ---
INDICATION: Abdominal pain Abdominal series performed with a frontal chest radiograph and supine and upright abdominal films. Heart and mediastinal silhouette are normal in appearance. The lungs are clear. There is no pneumothorax or gross pleural fluid. There is no free intraperitoneal air. There are multiple dilated loops of small bowel with air-fluid levels with minimal gas in the colon. The findings are suspicious for high-grade small bowel obstruction. There is contrast in the kidneys and bladder. IMPRESSION: Findings worrisome for small bowel obstruction. There is no free air. There is no acute pulmonary infiltrate. Dictated by: Dictated on workstation # [id number]
--- NOTE | 2019-04-02 23:08 | NUR ---
VIVIANE DIGGS admitted to room 425-1, with an admitting diagnosis of SBO , on 04/02/19 from ED via [facility], accompanied by STAFF . VIVIANE DIGGS introduced to surroundings, call light, bed controls, phone, TV, temperature control, lights, meal times, smoking policy, visitor policy, side rail policy, bathrooms and showers. Patient Rights given to patient in the handbook.VIVIANE DIGGS verbalizes understanding that [facility] is not responsible for the loss or damage to any personal effects or valuables that are kept in the patients posession during their hospitalization.
[2019-04-03] VITALS (7 sets, daily range): BP systolic 93–139; BP diastolic 51–76
[2019-04-03] MEDS: fentaNYL INJECTION 100 MCG/2 ML AMP IV PRN ×7 (01:01→23:05)
[2019-04-03] MEDS: D5 1/2 NS W/KCL 20 MEQ/L 1,000 ML IV SCH ×6 (01:54→23:05)
[2019-04-03 05:28] LABS: BASOPHILS % (AUTO) 0 % (0-10); EOSINOPHILS # (AUTO) 0.1 10^3/uL (0.0-0.3); EOSINOPHILS % (AUTO) 2 % (0-10); HEMATOCRIT 37 % (35-52); HEMOGLOBIN 12.5 G/DL (11.5-16.0); LYMPHOCYTES % (AUTO) 34 % (12-44); MEAN CORPUSCULAR HEMOGLOBIN 33 PG (25-34); MEAN CORPUSCULAR HGB CONC 34 G/DL (32-36); MEAN CORPUSCULAR VOLUME 97 FL (80-99); MEAN PLATELET VOLUME 10.8 FL (7.4-10.4); MONOCYTES # (AUTO) 0.9 X 10^3 (0.0-1.0); MONOCYTES % (AUTO) 16 % (0-12); NEUTROPHILS # (AUTO) 2.9 X 10^3 (1.8-7.8); NEUTROPHILS % (AUTO) 48 % (42-75); PLATELET COUNT 132 10^3/uL (130-400); RED CELL DISTRIBUTION WIDTH 12.7 % (10.0-14.5)
[2019-04-03 05:50] LABS: BILIRUBIN,TOTAL 0.3 MG/DL (0.1-1.0); CALCIUM 8.4 MG/DL (8.5-10.1); POTASSIUM 3.8 MMOL/L (3.6-5.0); TOTAL PROTEIN 5.5 GM/DL (6.4-8.2)
--- NOTE | 2019-04-03 05:58 | Diagnostic Imaging Report ---
INDICATION: NG tube placement. COMPARISON: Imaging from the same date. TECHNIQUE: Single radiograph of the chest dated 04/02/2019 FINDINGS: Interval placement of an enteric catheter with the distal tip and sidehole extending into the stomach. The cardiac silhouette and pulmonary vasculature are within normal limits in size. The lungs are clear. No pleural effusion. No pneumothorax. Stable mild elevation of left hemidiaphragm. No acute osseous abnormality. Dilated loops of bowel again noted within the upper abdomen. IMPRESSION: Interval placement of an enteric catheter with the distal tip and sidehole extending into the stomach. Persistent dilated loops of small bowel concerning for underlying bowel obstruction. Dictated by: Dictated on workstation # [id number]
[2019-04-03] MEDS: PANTOPRAZOLE 40 MG (PROTONIX) VIAL IV SCH (08:09)
[2019-04-03] MEDS ORDERED: SUMA1TAB PO (09:39)
[2019-04-03] MEDS ORDERED: TIZA2TAB4 PO (09:39)
[2019-04-03] MEDS ORDERED: DIVA500T PO (09:39)
[2019-04-03] MEDS ORDERED: VILA20TA PO (09:39)
[2019-04-03] MEDS ORDERED: ONDA4TAB11 PO (09:39)
--- NOTE | 2019-04-03 09:50 | NUR ---
SPOKE WITH THE PATIENT ABOUT HER MEDICATIONS. SHE IS DROWSY BUT DID ANSWER QUESTIONS APPROPRIATELY. WE WENT OVER THE EXT MED HX. SHE STATES SHE DOES NOT TAKE ANYTHING OTC OR RECEIVE SAMPLES OF ANY MEDICATIONS. ALL OF HER MEDS COME FROM [facility]. HER PROPRANOLOL 40MG WAS FILLED #90 FOR 30 DAYS 02-27-19 HOWEVER SHE STATES SHE ONLY TAKES IT BID.
--- NOTE | 2019-04-03 10:16 | Consultation - Hospitalist ---
ELVA PEREZ MED STUDENT 04/03/19 1016: HPI History of Present Illness: HPI/Chief Complaint CC: Abdominal pain, nausea HPI: Ms. Patrick was in the ER past several days with abdominal pain in the RUQ and RLQ. She had abdominal and chest x-rays and abdominal CT, findings of which were indicative of small bowel obstruction. They also revealed benign cysts on her left liver lobe and bilateral kidneys. Her labs were significant for hyponatremia, high blood glucose at 141, and positive cannabinoid screening. Her UA showed a high specific gravity of 1.025, 2+ protein, 2+ ketones, 1+ bilirubin, 4 urobilinogen, 1+ leukocyte esterase, 2-5 hyaline casts, and small amounts of mucus. When I spoke with her today, she seemed alert and oriented, not in distress, but still having significant abdominal pain on her right side. The pain radiates to her back on palpation, and she describes it as pressure. It is a constant pain, not associated with meals. She describes having diarrhea in the days leading up to her pain, has since had regular BMs. Hasn't had a BM in 2 days, but reports this is normal for her. She does not know if her thyroid condition is hypo or hyper, although her note says hypothyroid, and she takes levothyroxine. Her speech were tired and slow, and at times had difficulty communicating due to her being hard of hearing, particularly on her right side. She seemed upset and aggravated at repeat questioning about her medical history, and anxious about her care. No other complaints, but was concerned about her puppy at home, since she lives alone. 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 Source: patient Date Seen 04/03/19 Attending Physician Marisela Young MD PCP Amee Berg MD Referring Physician Date of Admission Apr 02, 2019 at 22:05 Home Medications & Allergies Home Medications Reviewed patient Home Medication Reconciliation performed by pharmacy medication reconciliations emergency veterinary technician and/or nursing. Patients Allergies have been reviewed. Allergies Allergies Coded Allergies Penicillins (Verified Allergy, Unknown, 01/08/08) hydrocodone (Verified Allergy, Unknown, 01/08/08) morphine (Verified Allergy, Unknown, 01/08/08) aspirin (Verified Adverse Reaction, Mild, STOMACH UPSET, 01/10/08) Past Okmxozb-Nvtqub-Wlqkvu Hx Past Med/Social Hx: Reviewed and Corrections made Patient Social History Marrital Status: Employed/Student: unemployed Alcohol Use: Regular Use (HISTORY OF ABUSE/HEAVY USE, CLAIMS "NONE FOR A FEW MONTHS" PER PT ON 04/02/19) Alcohol Beverage of Choice: Beer Recreational Drug Use: Yes (THC ON REGULAR / DAILY BASIS) Drug of Choice: SMOKES MARIJUANA ON REGULAR BASIS Smoking Status: Current Everyday Smoker (1 1/2 PPD) Type Used: Cigarettes (1 2 PPD) 2nd Hand Smoke Exposure: Yes Recent Foreign Travel: No Contact w/other who traveled: No Recent Hopitalizations: Yes Recent Infectious Disease Expo: No Immunizations Up To Date Tetanus Booster (TDap): Less than 5yrs Pediatric: Yes Past Medical History Surgeries: Bladder Surgery, Section, Hysterectomy, Oophorectomy, Tonsillectomy Neurological: Headaches /Migraines : No Hysterectomy, Menopausal Musculoskeletal: Back Injury, Chronic Back Pain Endocrine: Hypothyroidsim Psychosocial: Anxiety, PTSD, Depression History of Blood Disorders: Yes Family History Patient reports no known family medical history. Review of Systems Constitutional: chills (says she's cold a lot ); No fever; malaise EENTM: No nose congestion, No throat swelling Respiratory: No cough, No dyspnea on exertion Cardiovascular: No chest pain, No edema Gastrointestinal: abdominal pain (RUQ), nausea, vomiting Genitourinary: dysuria Musculoskeletal: back pain Psychiatric/Neurological: Denies Numbness, Denies Tingling Physical Exam Physical Exam Vital Signs Vital Signs - First Documented 04/02/19 20:52 Temp 36.4 Pulse 65 Resp 20 B/P (MAP) 112/74 (87) Pulse Ox 97 O2 Delivery Room Air Capillary Refill : Less Than 3 Seconds Height, Weight, BMI Height: 5'8.00" Weight: 160lbs. 0oz. 72.498903hr; 25.81 BMI Method:Stated General Appearance: No Apparent Distress Respiratory: Normal Breath Sounds Cardiovascular: Regular Rate, Rhythm, No Edema, No Murmur, Normal Peripheral Pulses Gastrointestinal: Normal Bowel Sounds, Tenderness (RLQ and RUQ, RUQ pain radiates to back) Extremity: Normal Capillary Refill, No Pedal Edema Neurologic/Psychiatric: Alert, Oriented x3, Normal Mood/Affect (seems aggriva galilea/upset), Sensory Deficit (hard of hearing on R) Skin: Normal Color, Warm/Dry Results Results/Procedures Labs Laboratory Tests 04/02/19 21:00 04/03/19 05:05 Patient resulted labs reviewed. Assessment/Plan Assessment and Plan Assess & Plan/Chief Complaint Assessment: Small Bowel Obstruction Abnormal Urinalysis Hypothyroid Plan: consider surgical intervention for SBO consider urine culture, work up consider Thyroid panel Clinical Quality Measures DVT/VTE Risk/Contraindication: Risk Factor Score Per Nursin RFS Level Per Nursing on Admit: 4+=Very High LAURA ROB DO 04/03/193: HPI History of Present Illness: HPI/Chief Complaint Chief complaint: Small bowel obstruction medical management HPI: This is a 54yoWF who presented to the ER for the third time this week for abdominal pain found to have a small bowel obstruction and NG tube was placed, Dr. Young admitted the Pt and continues to have right lower quadrant pain. She denies any small bowel obstructions in the past. She is very hard of hearing on the right. She does smoke marijuana and denies any other significant problems but she does want something to drink. Past Ogmdjpn-Nomxzf-Vawhpm Hx Past Med/Social Hx: Reviewed Nursing Past Med/Soc Hx, Reviewed and Corrections made Family History Patient reports no known family medical history. Review of Systems Gastrointestinal: abdominal pain Physical Exam Physical Exam General Appearance: WD/WN, Anxious, Mild Distress Respiratory: Lungs Clear Cardiovascular: Regular Rate, Rhythm Assessment/Plan Assessment and Plan Assess & Plan/Chief Complaint SBO management Cease THC use Diagnosis/Problems Diagnosis/Problems (1) SBO (small bowel obstruction) (2) Marijuana use, continuous Status: Acute (3) Hyponatremia Status: Acute Supervisory-Addendum Brief Verification & Attestation Participated in pt care: history, MDM, physical Personally performed: exam, history, MDM, supervision of care Care discussed with: Medical Student Procedures: n/a Results interpretation: Verified all documentation Verification and Attestation of Medical Student E/M Service A medical student performed and documented this service in my presence. I reviewed and verified all information documented by the medical student and made modifications to such information, when appropriate. I personally performed the physical exam and medical decision making. Laura Rob, Apr 03, 2019,20:52 ELVA PEREZ MED STUDENT Apr 03, 2019 10:16 LAURA ROB DO Apr 03, 2019 20:53
--- NOTE | 2019-04-03 13:50 | NUR ---
RD ASSESSMENT PMHx: hypothyroidism, ETOH use/abuse, Polysubstance use (marijuana) PT INTERACTION: Pt was awake and pleasant during nutrition assessment. Pt states current appetite as "so-so" and has been for a while. Note pt has poor dentition per chart review. Pt states following a regular diet at home. Pt states some recent episodes with n/v at this time, and that they have been present the last few days. Pt states some episodes of constipation and diarrhea at this time. Note no BM has been recorded since admit. Pt states recent 20# wt loss x2mon. Note unable to determine recent wt hx, per chart review. ABNORMAL NUTRITION-RELATED LAB VALUES: Na 132 (L); Ca 8.4 (L); Pro 5.5 (L); alb 3.0 (L); glu 141 (H); Est. kcal needs: 1144-2567 kcal (20-25 kcal/kg) Est. Pro needs: 77-92 g Pro (1.0-1.2 g Pro/kg) PES STATEMENT: Inadequate oral intake related to NPO status as evidenced by pt interview INTERVENTION: Advance diet to regular diet, when medically able. Pt may benefit from bowel regimen if constipation persists. MONITOR/EVALUATE: Diet Advancement, PO Intake, Weight Status; Hydration Status; Plan of Care; Stool Output; Lab Values Javier Zamora MS, RD, LD [phone]
--- NOTE | 2019-04-03 15:11 | HISTORY AND PHYSICAL ---
DATE OF SERVICE: ADMITTING PHYSICIAN: Amee Berg MD HISTORY OF PRESENT ILLNESS: The patient is a 54-year-old female with a multitude of medical problems. She presented to the Emergency Department with right-sided abdominal pain as well as distention with associated nausea and vomiting. She had also reported that she was having diarrhea before this episode of abdominal pain and distention; however, has not had a bowel movement in the past two days. She is on disability for what she states as migraine headaches as well as bladder cystitis. A CT scan was performed, which did show dilated loops of small bowel consistent with some level of bowel obstruction. She has had previous surgeries in the past including bladder surgery, section and hysterectomy. PAST SURGICAL HISTORY: Bladder surgery, section, total hysterectomy, tonsillectomy. PAST MEDICAL HISTORY: Chronic back pain, hypothyroidism, anxiety, PTSD, depression, history of migraine headaches, history of a hemorrhagic cystitis. ALLERGIES: PENICILLIN, HYDROCODONE, MORPHINE, ASPIRIN. MEDICATIONS: 1000 mg q.a.m., 1500 mg at bedtime, estradiol 1 mg daily, levothyroxine 100 mcg daily, oxybutynin 5 mg daily, propranolol 40 mg daily, risperidone 1 mg daily, sumatriptan p.r.n., tizanidine 6 mg at bedtime, topiramate 200 mg b.i.d., and Viibryd 20 mg daily. SOCIAL HISTORY: Positive smoke 30 pack years. Positive THC. History of alcohol abuse; however, states that she quit several months ago. FAMILY HISTORY: Noncontributory. VITAL SIGNS: Temperature 36.0, blood pressure 93/51, pulse 68, respirations 16, pulse ox 91% on room air. REVIEW OF SYSTEMS: Well-nourished female currently in no acute distress. She is not experiencing any shortness of breath or difficulty breathing. No chest pain, palpitations, diaphoresis. She has a nasogastric tube and there has been a significant amount of output since admission. No bright red blood as well as no coffee ground emesis. No bowel movement since admission. No fever, chills, no recent inadvertent weight loss. All other review of systems negative. PHYSICAL EXAMINATION: CHEST: Scattered wheezes and distant breath sounds bilaterally. HEART: Regular, no murmurs. EXTREMITIES: No lower extremity edema, negative Homans sign. HEENT: No scleral icterus. NECK: No cervical lymphadenopathy. ABDOMEN: Soft, slightly distended, mild discomfort. There are no peritoneal signs. No hernias palpable. SKIN: Warm, dry. LABORATORY DATA: WBC 6.0, hemoglobin 12.5, hematocrit 37, platelets 132. Liver function enzymes normal as well as amylase and lipase. ASSESSMENT AND PLAN: A 54-year-old female with small-bowel obstruction. This appears to be her first episode and we will proceed with conservative therapy with NG tube decompression as well as IV fluid hydration and bowel rest. We will await bowel function as well as monitor her nasogastric output. If she does not improve, we will then proceed with a Gastrografin small bowel follow through. Job ID: [id number] DocumentID: [id number] Dictated Date: 04/03/2019 14:36:14 Cupola Repairer Date: 04/03/2019 15:09:47 Dictated By: HAILEY WEBSTER MD
--- NOTE | 2019-04-03 15:17 | NUR ---
Pastoral care visit.
[2019-04-03] MEDS: ONDANSETRON 4 MG/2 ML (SDV) Z0FRAN IV PRN (17:57)
[2019-04-03] MEDS: CIPROFLOXACIN IV 400MG/200ML 200 ML IV SCH (20:21)
[2019-04-04 00:45] VITALS: BP 128/76
[2019-04-04] MEDS: fentaNYL INJECTION 100 MCG/2 ML AMP IV PRN ×5 (01:54→17:08)
[2019-04-04] MEDS: D5 1/2 NS W/KCL 20 MEQ/L 1,000 ML IV SCH ×5 (03:43→23:45)
[2019-04-04 04:20] VITALS: BP 139/84
[2019-04-04 07:20] LABS: HEMOGLOBIN 13.1 G/DL (11.5-16.0); MEAN PLATELET VOLUME 11.5 FL (7.4-10.4); RED CELL DISTRIBUTION WIDTH 12.5 % (10.0-14.5)
[2019-04-04 07:47] LABS: BUN/CREATININE RATIO 10; CALCIUM 8.1 MG/DL (8.5-10.1); CARBON DIOXIDE 22 MMOL/L (21-32); CHLORIDE 109 MMOL/L (98-107); CREATININE SERUM 0.71 MG/DL (0.60-1.30); GFR ESTIMATED > 60; GLUCOSE 143 MG/DL (70-105); SODIUM 138 MMOL/L (135-145)
[2019-04-04 08:00] VITALS: BP 138/85
[2019-04-04] MEDS: PANTOPRAZOLE 40 MG (PROTONIX) VIAL IV SCH (08:05)
[2019-04-04] MEDS: CIPROFLOXACIN IV 400MG/200ML 200 ML IV SCH ×2 (08:07→21:39)
--- NOTE | 2019-04-04 10:43 | Diagnostic Imaging Report ---
INDICATION: Small bowel obstruction. TIME OF EXAM: 9:25 AM Correlation is made with abdominal radiographs from 04/02/2019. FINDINGS: There continues to be moderate gaseous distention of the small bowel loops in the central abdomen with scattered air-fluid levels present. Colon appears to be decompressed. No definite free air is seen. IMPRESSION: Continued gaseous distention of small bowel with air-fluid level suspicious for small bowel obstruction. NG tube does have the tip in the stomach. Dictated by: Dictated on workstation # [id number]
[2019-04-04 12:00] VITALS: BP 126/64
--- NOTE | 2019-04-04 13:34 | Progress Note - Hospitalist ---
ELVA PEREZ MED STUDENT 04/04/19 1334: Subjective HPI/CC On Admission Date Seen by Provider: Apr 04, 2019 Time Seen by Provider: 08:20 Chief complaint: Small bowel obstruction medical management HPI: This is a 54yoWF who presented to the ER for the third time this week for abdominal pain found to have a small bowel obstruction and NG tube was placed, Dr. Young admitted the Pt and continues to have right lower quadrant pain. She denies any small bowel obstructions in the past. She is very hard of hearing on the right. She does smoke marijuana and denies any other significant problems but she does want something to drink. Subjective/Events-last exam Since I last saw Ms. Patrick she reports feeling about the same as before, although her abdominal pain has improved somewhat. She expressed interest in walking, she is currently on an NG tube and has gutierrez catheter. Complains of pain due to NG tube and catheter, she is going to have the catheter removed so she can begin walking on her own. Speaking to her she seemed quiet and subdued as before. Her labs showed low sodium calcium protein, and albumin. Her platelet count was low and MPV was high. Dr. Young has ordered a gastrograffin SBFT, and she is on ciprofloxacin. Review of Systems General: No Chills; Fatigue Pulmonary: Dyspnea; No Cough Cardiovascular: No: Chest Pain, Edema Gastrointestinal: Abdominal Pain, Constipation; No: Nausea, Vomiting Genitourinary: Dysuria Neurological: No: Numbness Objective Exam Vital Signs Vital Signs Date Time Temp Pulse Resp B/P (MAP) Pulse Ox O2 Delivery O2 Flow Rate FiO2 04/04/19 15:22 Room Air 04/04/19 12:00 36.2 76 18 126/64 (84) 93 Capillary Refill : Less Than 3 Seconds General Appearance: No Apparent Distress, WD/WN Respiratory: Lungs Clear, Normal Breath Sounds Cardiovascular: Regular Rate, Rhythm, No Edema, No Murmur, Normal Peripheral Pulses Extremity: No Calf Tenderness, No Pedal Edema Neurologic/Psychiatric: Alert, Oriented x3 Skin: Warm/Dry Results/Procedures Lab Laboratory Tests 04/04/19 06:22 Patient resulted labs reviewed. Assessment/Plan Assessment and Plan Assess & Plan/Chief Complaint Assessment: Small Bowel Obstruction Abnormal Urinalysis Hypothyroid Plan: remove catheter, begin ambulation gastrograffin SBFT consider urine culture, work up consider Thyroid panel Clinical Quality Measures DVT/VTE Risk/Contraindication: Risk Factor Score Per Nursin RFS Level Per Nursing on Admit: 4+=Very High LAURA ROB DO 04/04/191946: Subjective Subjective/Events-last exam NG maintained Will DC telemetry Will use IS for pneumonia prophylaxis Pretty well subdued but no major changes Pain is slightly improved Out of bed and ambulation will be initiated today Will DC gutierrez since urinary spasms are causing her distress Review of Systems Gastrointestinal: Abdominal Pain Objective Exam General Appearance: No Apparent Distress, WD/WN, Chronically ill Respiratory: Lungs Clear Cardiovascular: Regular Rate, Rhythm Assessment/Plan Assessment and Plan Assess & Plan/Chief Complaint SBO Urinary bladder spasms Diagnosis/Problems Diagnosis/Problems (1) SBO (small bowel obstruction) (2) Marijuana use, continuous Status: Acute (3) Hyponatremia Status: Acute Supervisory-Addendum Brief Verification & Attestation Participated in pt care: history, MDM, physical Personally performed: exam, history, MDM, supervision of care Care discussed with: Medical Student Procedures: n/a Results interpretation: Verified all documentation Verification and Attestation of Medical Student E/M Service A medical student performed and documented this service in my presence. I reviewed and verified all information documented by the medical student and made modifications to such information, when appropriate. I personally performed the physical exam and medical decision making. Laura Rob, Apr 04, 2019,19:47 ELVA PEREZ MED STUDENT Apr 04, 2019 13:34 LAURA ROB DO Apr 04, 2019 19:47
[2019-04-04] MEDS ORDERED: DIATRIZOATE MEGLUM/SODIUM 37% 120 ML (GASTROGRAFIN) NG ONE (14:00)
--- NOTE | 2019-04-04 16:16 | Progress Note ---
Subjective Date Seen by a Provider: Apr 04, 2019 Time Seen by a Provider: 16:00 Subjective/Events-last exam continues to have nausea. serial AXR consistent with SBO. currently undergoing g-graffin SBFT and seems to be hanging up at 2 hours. no peritoneal signs. Objective Exam Vital Signs Date Time Temp Pulse Resp B/P (MAP) Pulse Ox O2 Delivery O2 Flow Rate FiO2 04/04/19 15:22 Room Air 04/04/19 12:00 36.2 76 18 126/64 (84) 93 Room Air 04/04/19 08:00 Room Air 04/04/19 08:00 36.8 76 16 138/85 (102) 93 Room Air 04/04/19 07:00 80 04/04/19 04:20 36.7 72 18 139/84 (102) 93 Room Air 04/04/19 01:00 74 04/04/19 00:45 36.0 69 18 128/76 (93) 95 Room Air 04/03/19 20:06 36.3 70 20 139/70 (93) 95 Room Air 04/03/19 20:00 Room Air 04/03/19 19:00 71 04/03/19 16:26 37.0 64 20 126/73 (90) 92 Room Air I & O 04/04/19 07:00 Intake Total 0 ml Output Total 4600 ml Balance -4600 ml Capillary Refill : Less Than 3 Seconds General Appearance: No Apparent Distress HEENT: PERRL/EOMI Neck: Full Range of Motion Respiratory: Chest Non Tender, Wheezing Cardiovascular: Regular Rate, Rhythm Gastrointestinal: soft, distended Extremity: Normal Capillary Refill Neurologic/Psychiatric: Alert, Oriented x3 Skin: Normal Color Lymphatic: No Adenopathy Results Lab Laboratory Tests 04/04/19 06:22: White Blood Count 6.0, Red Blood Count 4.00L, Hemoglobin 13.1, Hematocrit 39, Mean Corpuscular Volume 98, Mean Corpuscular Hemoglobin 33, Mean Corpuscular Hemoglobin Concent 33, Red Cell Distribution Width 12.5, Platelet Count 122L, Mean Platelet Volume 11.5H, Sodium Level 138, Potassium Level 4.0, Chloride Level 109H, Carbon Dioxide Level 22, Anion Gap 7, Blood Urea Nitrogen 7, Creatinine 0.71, Estimat Glomerular Filtration Rate > 60, BUN/Creatinine Ratio 10, Glucose Level 143H, Calcium Level 8.1L Assessment/Plan Assessment/Plan Assess & Plan/Chief Complaint SBO. if continued lack of transit thru small bowel will proceed with dx laparoscopy and CIARAN tomorrow. Clinical Quality Measures DVT/VTE Risk/Contraindication: Risk Factor Score Per Nursin RFS Level Per Nursing on Admit: 4+=Very High HAILEY WEBSTER MD Apr 04, 2019 16:16
[2019-04-04] MEDS: ONDANSETRON 4 MG/2 ML (SDV) Z0FRAN IV PRN (16:21)
[2019-04-04] MEDS: PROMETHAZINE INJ 25 MG/ML (PHENERGAN) AMP IVP PRN ×2 (16:47→21:39)
[2019-04-04 16:58] VITALS: BP 146/86
--- NOTE | 2019-04-04 19:50 | NUR ---
PT TAKEN FOR SMALL BOWEL FOLLOW THROUGH VIA WHEELCHAIR.
--- NOTE | 2019-04-04 20:10 | NUR ---
PT RETURNED FROM SMALL BOWEL FOLLOW THROUGH VIA WHEELCHAIR. PT HAD PULLED NG TUBE OUT. PT WILL HAVE ANOTHER SMALL BOWEL FOLLOW THROUGH IN AM, WILL HOLD OFF ON ANOTHER NG TUBE UNTIL AFTER. Addendum: 04/05/19 at 0515 by THEA MCCULLOUGH RN WILL HOLD OFF ON ANOTHER NG TUBE UNTIL AFTER D/T PT REFUSAL AT THIS TIME. PT STATES "I'LL JUST WAIT UNTIL THE MORNING."
--- NOTE | 2019-04-04 20:22 | Progress Note-Pre Operative ---
Pre-Operative Progress Note H&P Reviewed The H&P was reviewed, patient examined and no changes noted. Date Seen by Provider: Apr 04, 2019 Time Seen by Provider: 20:20 Date H&P Reviewed: Apr 04, 2019 Time H&P Reviewed: 20:20 Pre-Operative Diagnosis: small bowel obstruction HAILEY WEBSTER MD Apr 04, 2019 20:21
[2019-04-04 20:50] VITALS: BP 155/84
[2019-04-05] VITALS (12 sets, daily range): BP systolic 128–168; BP diastolic 78–109
[2019-04-05] MEDS: ONDANSETRON 4 MG/2 ML (SDV) Z0FRAN IV PRN (00:02)
[2019-04-05] MEDS: D5 1/2 NS W/KCL 20 MEQ/L 1,000 ML IV SCH ×4 (00:32→23:18)
[2019-04-05] MEDS: fentaNYL INJECTION 100 MCG/2 ML AMP IV PRN ×4 (02:48→23:12)
[2019-04-05] MEDS: PROMETHAZINE INJ 25 MG/ML (PHENERGAN) AMP IVP PRN (02:48)
[2019-04-05 05:36] LABS: BASOPHILS % (AUTO) 0 % (0-10); EOSINOPHILS # (AUTO) 0.1 10^3/uL (0.0-0.3); EOSINOPHILS % (AUTO) 2 % (0-10); HEMATOCRIT 41 % (35-52); HEMOGLOBIN 13.9 G/DL (11.5-16.0); LYMPHOCYTES % (AUTO) 23 % (12-44); MEAN CORPUSCULAR HEMOGLOBIN 33 PG (25-34); MEAN CORPUSCULAR HGB CONC 34 G/DL (32-36); MEAN CORPUSCULAR VOLUME 98 FL (80-99); MEAN PLATELET VOLUME 11.2 FL (7.4-10.4); MONOCYTES # (AUTO) 1.7 X 10^3 (0.0-1.0); MONOCYTES % (AUTO) 20 % (0-12); NEUTROPHILS # (AUTO) 4.7 X 10^3 (1.8-7.8); NEUTROPHILS % (AUTO) 55 % (42-75); PLATELET COUNT 149 10^3/uL (130-400); RED CELL DISTRIBUTION WIDTH 12.8 % (10.0-14.5); WHITE BLOOD COUNT 8.5 10^3/uL (4.3-11.0)
[2019-04-05 05:50] LABS: BAND NEUTROPHILS 0 %; BASOPHILS % (MANUAL) 0 %; EOSINOPHILS % (MANUAL) 4 %; LYMPHOCYTES % (MANUAL) 19 %; MONOCYTES % (MANUAL) 12 %; NEUTROPHILS % (MANUAL) 61 %; RBC MORPH NORMAL; REACTIVE LYMPHOCYTES 4 %
[2019-04-05 06:02] LABS: ALANINE AMINOTRANSFERASE 7 U/L (0-55); ALBUMIN 3.3 GM/DL (3.2-4.5); ALKALINE PHOSPHATASE 50 U/L (40-136); BILIRUBIN,TOTAL 0.3 MG/DL (0.1-1.0); BUN/CREATININE RATIO 9; CARBON DIOXIDE 23 MMOL/L (21-32); CHLORIDE 102 MMOL/L (98-107); CREATININE SERUM 0.75 MG/DL (0.60-1.30); GFR ESTIMATED > 60; GLUCOSE 143 MG/DL (70-105); POTASSIUM 4.2 MMOL/L (3.6-5.0); SODIUM 135 MMOL/L (135-145); TOTAL PROTEIN 6.3 GM/DL (6.4-8.2)
--- NOTE | 2019-04-05 09:12 | Diagnostic Imaging Report ---
EXAMINATION: Small bowel exam. INDICATION: Abdominal pain. FINDINGS: The abdomen exam performed earlier today at 9:25 AM noted dilated gas and fluid-filled segments of small bowel. This appearance was felt to be suspicious for a small bowel obstruction. Contrast was introduced to the stomach via the patient's NG line. There were numerous dilated contrast laden segments of small bowel present. At 7 hours, there was still no clear evidence of the contrast in the colon. A delayed exam performed at 0810 hours on 04/05/2019 still failed to show any convincing evidence for contrast within the colon. Consequently, I do feel that there is a high-grade small bowel obstruction. IMPRESSION: 1. The findings would be consistent with a high-grade small bowel obstruction. 2. These results were called to Dr. Young. CRITICAL FINDING Dictated by: Dictated on workstation # [id number]
--- NOTE | 2019-04-05 09:57 | Occupational Therapy Eval ---
OT Evaluation-General/PLF Medical Diagnosis Admission Date Apr 02, 2019 at 22:05 Medical Diagnosis: small bowel obstruction Onset Date: Apr 02, 2019 Therapy Diagnosis Therapy Diagnosis: decr self care, weakness, decr funct mobility Height/Weight Height (Feet): 5 Height (Inches): 8.00 Weight (Pounds): 160 Weight (Ounces): 0 Precautions Precautions/Isolations: Fall Prevention, Standard Precautions Safety Interventions: None Referral Physician: Lucas Referral Reason: Evaluation/Treatment Medical History Pertinent Medical History: Hypothroidism, Smoking Additional Medical History Alcohol abuse, daily THC use. Headaches/migraines. back injury, chronic back pain. Anxiety. PTSD. depression, "anger issues" Current History Admitted with lower abdominal pain. Reviewed History: Yes Social History Current Living Status: Alone ADL-Prior Level of Function SCALE: Activities may be completed with or without assistive devices. 6-Nfxbaxrivg-mdqumpm completes the activity by him/herself with no assistance from a helper. 5-Set-up or Clean-up Assistance-helper sets up or cleans up; patient completes activity. [place] assists only prior to or following the activity. 4-Supervision or Touching Assistance-helper provides verbal cues and/or touching/steadying and/or contact guard assistance as patient completes activity. Assistance may be provided throughout the activity or intermittently. 3-Partial/Moderate Assistance-helper does LESS THAN HALF the effort. [place] lifts, holds or supports trunk or limbs, but provides less than half the effort. 2-Substantial/Maximal Assistance-helper does MORE THAN HALF the effort. [place] lifts or holds trunk or limbs and provides more than half the effort. 7-Ztklerchx-pxwfat does ALL the effort. Patient does none of the effort to complete the activity. Or, the assistance of 2 or more helpers is required for the patient to complete the activity. If activity was not attempted, code reason: 7-Patient Refused. 9-Not Applicable-not attempted and the patient did not perform the activity before the current illness, exacerbation or injury. 10-Not Attempted due to Environmental Limitations-(lack of equipment, weather restraints, etc.). 88-Not Attempted due to Medical Conditions or Safety Concerns. ADL PLOF Comments Pt reported that she has been able to manage her basic self care needs, drive. She does not work outside the home. She reported that she is supposed to have a interactive producer but that service hasn't started up yet. Self Care: Independent Functional Cognition: Independent OT Current Status Subjective Pt seen in room, up in bed, agreeable to OT. Pain reported 6/10 in lower abdomen but not described. Appearance Alert, cooperative, flat affect Mental Status/Objective Attachments: Central Line Current Hand Dominance: Right Upper Extremity ROM L UE grossly WFL. R UE not tested - in splint for IV maintenance Upper Extremity Strength L UE grossly 4/5. R UE not tested due to splint for IV maintenance ADL-Treatment ADL-Current Pt reported that she was able to get up out of bed by herself but always calls for nurse SBA. She said that her bowels worked this morning and that she was able to complete hygiene herself. Pt is NPO and can feed herself ice chips. No dressing yet - wearing hospital gown. Pt reported that she took a walk with PT earlier this morning and did not use an AD. She held on to the IV. Education OT Patient Education: Purpose of tx/functional activities, Rehab process Teaching Recipient: Patient Teaching Methods: Discussion Response to Teaching: Verbalize Understanding OT Detention Goals Detention Goals Time Frame: Apr 12, 2019 Eating (QC): 6 Oral Hygiene (QC): 6 Shower/Bathe Self (QC): 5 Upper Body Dressing (QC): 6 Lower Body Dressing (QC): 6 On/Off Footwear (QC): 6 Toileting Hygiene (QC): 6 Toilet/Commode Transfer (QC): 6 Additional Goals: 1-Demonstrate ADL Tasks, 2-Verbalize Understanding, 3- ImproveStrength/Christi 1=Demonstrate adherence to instructed precautions during ADL tasks. 2=Patient will verbalize/demonstrate understanding of assistive devices/modifications for ADL. 3=Patient will improve strength/tolerance for activity to enable patient to perform ADL's. OT Education/Plan Problem List/Assessment Assessment: Impaired Self-Care Skills Pt would benefit from skilled OT to increase her independence in basic self care to allow her to safely return home to live by herself. Discharge Recommendations Plan/Recommendations: Continue POC Treatment Plan/Plan of Care Treatment,Training & Education: Yes Patient would benefit from OT for education, treatment and training to promote independence in ADL's, mobility, safety and/or upper extremity function for A DL's. Plan of Care: ADL Retraining, Functional Mobility, UE Funct Exercise/Act, OTHER (energy conservation education) Treatment Duration: Apr 12, 2019 Frequency: 5 times per week Estimated Hrs Per Day: .25 hour per day Agreement: Yes Rehab Potential: Good Time/GCodes Start Time: 09:34 Stop Time: 09:46 Total Time Billed (hr/min): 12 Billed Treatment Time visit, 12 minutes evaluation low intensity GARO MAURO OT Apr 05, 2019 09:57
[2019-04-05] MEDS: CIPROFLOXACIN IV 400MG/200ML 200 ML IV SCH ×2 (10:11→21:55)
[2019-04-05] MEDS: PANTOPRAZOLE 40 MG (PROTONIX) VIAL IV SCH (10:11)
--- NOTE | 2019-04-05 10:53 | Physical Therapy Evaluation ---
PT Evaluation-General Medical Diagnosis Admission Date Apr 02, 2019 at 22:05 Medical Diagnosis: small bowel obstruction Onset Date: Apr 02, 2019 Therapy Diagnosis Therapy Diagnosis: debility Height/Weight Height (Feet): 5 Height (Inches): 8.00 Weight (Pounds): 160 Weight (Ounces): 0 Precautions Precautions/Isolations: Fall Prevention, Standard Precautions Referral Physician: Lucas Reason for Referral: Evaluation/Treatment Medical History Pertinent Medical History: Alcoholism, Hypothroidism, Smoking Current History ER with abdominal pain Reviewed History: Yes Social History Home: Apartment Current Living Status: Alone Prior Prior Level of Function SCALE: Activities may be completed with or without assistive devices. 7-Nesciyzjro-fmrpkyx completes the activity by him/herself with no assistance from a helper. 5-Set-up or Clean-up Assistance-helper sets up or cleans up; patient completes activity. [place] assists only prior to or following the activity. 4-Supervision or Touching Assistance-helper provides verbal cues and/or touch ing/steadying and/or contact guard assistance as patient completes activity. Assistance may be provided throughout the activity or intermittently. 3-Partial/Moderate Assistance-helper does LESS THAN HALF the effort. [place] lifts, holds or supports trunk or limbs, but provides less than half the effort. 2-Substantial/Maximal Assistance-helper does MORE THAN HALF the effort. [place] lifts or holds trunk or limbs and provides more than half the effort. 6-Kpaebsapn-oyffca does ALL the effort. Patient does none of the effort to complete the activity. Or, the assistance of 2 or more helpers is required for the patient to complete the activity. If activity was not attempted, code reason: 7-Patient Refused. 9-Not Applicable-not attempted and the patient did not perform the activity before the current illness, exacerbation or injury. 10-Not Attempted due to Environmental Limitations-(lack of equipment, weather restraints, etc.). 88-Not Attempted due to Medical Conditions or Safety Concerns. Bed Mobility: 7 Transfers (B,C,W/C): 7 Gait: 7 Stairs: 7 Indoor Mobility (Ambulation): Independent Stairs: Independent Prior Devices Use: None PT Evaluation-Current Subjective Patient reluctantly agrees to PT. Pain Numeric Pain Scale: 8 Location: Lower Location Body Site: Abdomen Pain Description: Pressure, Acute Objective Patient Orientation: Normal For Age Problem Solving: Good Attachments: Velez Catheter, IV ROM/Strength ROM Lower Extremities bilateral LE WFL Strength Lower Extremities 4/5 bilateral LE Integumentary/Posture Integumentary refer to nursing notes Bowel Incontinence: No Bladder Incontinence: Velez Cath Posture WFL Neuromuscular (Tone, Coordination, Reflexes) grossly intact Sensory Vision: Functional Hearing: Functional Hand Dominance: Right Sensation Right Lower Extremit: Intact Sensation Left Lower Extremity: Intact Transfers Roll Left to Right (QC): 6 Sit to Lying (QC): 6 Lying to Sitting/Side of Bed(Q: 6 Sit to Stand (QC): 6 Chair/Ntq-sc-Pddid Xfer(QC): 6 Gait Does the Patient Walk?: Yes Anticipated Mode of Locomotion: Walk Distance (FIM): 3=150 ft Walk 10 feet (QC): 6 Walk 50 ft with 2 Turns(QC): 6 Walk 150 ft (QC): 6 Distance: 275' Gait Assistive Device: None Comments/Gait Description slow, steady gait sequence Balance Sitting Static: Normal Sitting Dynamic: Normal Standing Static: Normal Standing Dynamic: Normal Assessment/Needs 54 y.o. female, is currently at [facility] with all gross motor skills and does not require skilled therapy intervention. Nursing instructed to encourage patient to ambulate PRN (3-4 / day) in hallway. Rehab Potential: Fair PT Plan Treatment/Plan Treatment Plan: Discontinue PT, goals met Treatment Plan: Other Treatment Duration: Apr 05, 2019 Frequency: 1 time per week Estimated Hrs Per Day: .25 hour per day Patient and/or Family Agrees t: Yes Time/GCodes Time In: 840 Time Out: 854 Total Billed Treatment Time: 14 Total Billed Treatment 1 visit EVMod 14 min KATHRYN MCCULLOUGH PT Apr 05, 2019 10:53
--- NOTE | 2019-04-05 11:40 | Progress Note - Hospitalist ---
ELVA PEREZ MED STUDENT 04/05/19 1140: Subjective HPI/CC On Admission Date Seen by Provider: Apr 05, 2019 Time Seen by Provider: 08:30 Chief complaint: Small bowel obstruction medical management HPI: This is a 54yoWF who presented to the ER for the third time this week for abdominal pain found to have a small bowel obstruction and NG tube was placed, Dr. Young admitted the Pt and continues to have right lower quadrant pain. She denies any small bowel obstructions in the past. She is very hard of hearing on the right. She does smoke marijuana and denies any other significant problems but she does want something to drink. Subjective/Events-last exam * Since last seen, underwent gastrograffin SBFT, and reports that she will likely undergo surgery to relieve SBO. * X-Ray from this morning shows severe SBO. * Her labs show improving RBC count, continued high Monocytes, continued high glucose, and continued low protein. Her platelet count is no longer low, but her MPV is still high. * She continues to have a flat affect, and is taking a long time to respond to questions and giving only short responses. * Had a BM today * no longer complains of dysuria. * Continues to have abdominal pain and nausea/vomiting. * She has continued to participate in PT/OT. Review of Systems General: No Chills HEENT: No Head Aches, No Sinus Congestion Pulmonary: No Dyspnea, No Cough Cardiovascular: No: Chest Pain, Edema Gastrointestinal: Nausea, Vomiting, Abdominal Pain, Constipation Genitourinary: No Dysuria, No Frequency Neurological: No: Weakness, Numbness Objective Exam Vital Signs Vital Signs Date Time Temp Pulse Resp B/P (MAP) Pulse Ox O2 Delivery O2 Flow Rate FiO2 04/05/19 16:56 OxyMask 1.5 04/05/19 16:30 14 96 04/05/19 16:13 36.8 04/05/19 12:00 87 Capillary Refill : Less Than 3 Seconds General Appearance: WD/WN Respiratory: Lungs Clear, Normal Breath Sounds, No Accessory Muscle Use, No Respiratory Distress Cardiovascular: Regular Rate, Rhythm, No Edema, No Gallop, No Murmur Neurologic/Psychiatric: Alert, Oriented x3; No Normal Mood/Affect (flat affect) Results/Procedures Lab Laboratory Tests 04/05/19 05:05 Patient resulted labs reviewed. Assessment/Plan Assessment and Plan Assess & Plan/Chief Complaint Assessment: 1. SBO 2. hypothyroid 3. chronic back pain 4. migraines 5. anxiety 6. PTSD 7. depression Plan: 1. surgical intervention planned for SBO 2. continue PT/OT, ambulation 3. continue medications for chronic conditions once GI function returns Clinical Quality Measures DVT/VTE Risk/Contraindication: Risk Factor Score Per Nursin RFS Level Per Nursing on Admit: 4+=Very High LAURA ROB DO 04/05/192036: Subjective Subjective/Events-last exam Pt ready for surgery. She did have a BM in the toilet today but still have vomiting of bowel contents. Denies any other significant issues. Review of Systems General: Fatigue Gastrointestinal: Nausea, Vomiting, Abdominal Pain Objective Exam General Appearance: WD/WN, Chronically ill, Mild Distress Respiratory: Lungs Clear Cardiovascular: Regular Rate, Rhythm Neurologic/Psychiatric: Alert, Oriented x3, No Motor/Sensory Deficits, Normal Mood/Affect Assessment/Plan Assessment and Plan Assess & Plan/Chief Complaint OR today since benefits outweigh medical risks Diagnosis/Problems Diagnosis/Problems (1) SBO (small bowel obstruction) (2) Hyponatremia Status: Acute (3) Marijuana use, continuous Status: Acute Supervisory-Addendum Brief Verification & Attestation Participated in pt care: history, MDM, physical Personally performed: exam, history, MDM, supervision of care Care discussed with: Medical Student Procedures: n/a Results interpretation: Verified all documentation Verification and Attestation of Medical Student E/M Service A medical student performed and documented this service in my presence. I reviewed and verified all information documented by the medical student and made modifications to such information, when appropriate. I personally performed the physical exam and medical decision making. Laura Rob, Apr 05, 2019,20:37 ELVA PEREZ MED STUDENT Apr 05, 2019 11:40 LAURA ROB DO Apr 05, 2019 20:37
[2019-04-05] MEDS ORDERED: BUP/EPI 0.5% 1:200,000 (SENSORCAINE) 30 ML VIAL ONE (13:41)
[2019-04-05] MEDS ORDERED: MIDAZOLAM 2 MG/2 ML (VERSED) VIAL ONE (14:18)
[2019-04-05] MEDS ORDERED: fentaNYL INJECTION 100 MCG/2 ML AMP ONE ×2 (14:18→15:17)
[2019-04-05] MEDS ORDERED: LIDOCAINE PF 2% 5 ML (XYLOCAINE) VIAL ONE (14:18)
[2019-04-05] MEDS ORDERED: SEVOFLURANE (ULTANE) 15 ML INHAL SOLN ONE ×3 (14:18→15:18)
[2019-04-05] MEDS ORDERED: proPOfol 200 MG/20 ML (DIPRIVAN) VIAL IV ONE (14:18)
--- NOTE | 2019-04-05 14:35 | NUR ---
pt taken off floor for procedure. Family at side.
[2019-04-05] MEDS: LACTATED RINGERS 1,000 ML IV PRN ×2 (14:38→15:40)
[2019-04-05] MEDS ORDERED: PHENYLEPHRINE 100 MCG/ML 10 ML (ANESTHESIA) SYR ONE (15:09)
[2019-04-05] MEDS ORDERED: SUCCINYLCHOLINE INJ 100 MG/5 ML SYR ONE (15:18)
[2019-04-05] MEDS ORDERED: ROCURONIUM 10 MG/ML 5 ML SYRINGE IV ONE (15:18)
[2019-04-05] MEDS ORDERED: GLYCOPYRROLATE 0.2 MG/ML (ROBINUL) 2 ML VIAL ONE (15:50)
[2019-04-05] MEDS ORDERED: NEOSTIGMINE 3 MG/3 ML VIAL ONE (15:50)
--- NOTE | 2019-04-05 16:08 | Progress Note-Post Operative ---
Post-Operative Progess Note Surgeon (s)/Hr Administrator (s) Surgeon HAILEY WEBSTER MD Hr Administrator: demario barry TRANSMISSION MECHANIC Pre-Operative Diagnosis small bowel obstruction Post-Operative Diagnosis same secondary to adhesion, small iatrogenic enterotomy. Procedure & Operative Findings Date of Procedure 04/05/19 Procedure Performed/Findings diagnostic laparoscopy, lysis of adhesions, enterorrhaphy. Anesthesia Type get Estimated Blood Loss Estimated blood loss (mL): minimal Specimens/Packing Specimens Removed none HAILEY WEBSTER MD Apr 05, 2019 16:08
[2019-04-05] MEDS ORDERED: HYDROmorphone 2 MG/ML VIAL (DILAUDID) ONE (16:13)
[2019-04-05] MEDS ORDERED: MEPERIDINE (DEMEROL) INJ 50 MG/ML IVP ONE (16:15)
[2019-04-05] MEDS ORDERED: ONDANSETRON 4 MG/2 ML (SDV) Z0FRAN IVP PRN (16:15)
[2019-04-05] MEDS ORDERED: fentaNYL INJECTION 100 MCG/2 ML AMP IVP ONE (16:15)
[2019-04-05] MEDS ORDERED: OXYC1TAB87 PO (16:27)
--- NOTE | 2019-04-05 16:28 | Discharge Inst-Surgical ---
D/C Lap Instructions-DARIN New, Converted, or Re-Newed RX: RX on Chart Follow Up Appt in 2 weeks Activity as tolerated No driving for 24 hours No driving while on pain medications Incentive Spirometry use every 2 hours while awake Regular Diet Symptoms to Report: Fever over 101 degree F, Nausea/Vomiting Infection Signs and Symptoms to report: Increased redness, Foul odor of wound, Increased drainage Bathing instructions: May shower Operative Area Clean/Dry; Keep incision clean/dry If any problems/questions: Contact your physician or go to Emergency Room HAILEY WEBSTER MD Apr 05, 2019 16:28
--- NOTE | 2019-04-05 17:20 | NUR ---
PT BACK TO ROOM FROM PROCEDURE. A/O X4 RATING PAIN 10/10 IN ABDOMEN. WILL GIVEN PRN PAIN MEDICATION WHEN AVAILABLE. NG TO LOW INTERMITTENT SUCTION. FAMILY AT SIDE. ABDOMINAL LAP SITES INTACT WITH DERMABOND.
--- NOTE | 2019-04-05 20:20 | NUR ---
dr bernabe called concerning pt heart rate 146, temp 100.2. pt also c/o pain with abd not relieved by pain med. new orders received
[2019-04-05] MEDS ORDERED: ACETAMINOPHEN 325 MG TABLET PO PRN (20:30)
--- NOTE | 2019-04-05 20:42 | OPERATIVE REPORT ---
DATE OF SERVICE: 04/05/2019 ATTENDING PRIMARY CARE PHYSICIAN: Dr. Amee Berg. PREOPERATIVE DIAGNOSIS: Small-bowel obstruction. POSTOPERATIVE DIAGNOSES: Small-bowel obstruction secondary to pelvic adhesions. Iatrogenic small bowel enterotomy (<1cm). PROCEDURE: Diagnostic laparoscopy, lysis of adhesions, which took approximately 60 minutes, laparoscopic enterotomy repair. SURGEON: Hailey Webster MD BREAST PULLER: Scott Garcia APRN ANESTHESIA: General endotracheal. ESTIMATED BLOOD LOSS: Minimal. FINDINGS: Adhesion tissue into the pelvis causing a tight obstruction of loop of small bowel with venous engorgement, however, no arterial insufficiency. The entire small bowel was ran. During the process, there was very small enterotomy identified. This was most likely iatrogenic. This was repaired. DISPOSITION: The patient tolerated the procedure well. INDICATIONS: The patient is a 54-year-old female who presented to the Emergency Department with abdominal pain and distention as well as nausea and vomiting. On initial presentation, she had a very slow mentation and appear to be under the influence of substances. She states that the pain was worse upon movements and also developed nausea, vomiting and abdominal distention. She also does have a history of smoking as well as alcoholism. She also does use THC on a daily basis. CT scan was performed at that time, which did show dilated loops of bowel consistent with some form of bowel obstruction. She underwent conservative therapy initially with NG tube decompression; however, she continued to have no bowel function. A Gastrografin small bowel follow through was then done, which did show that there was a high-grade bowel obstruction. Her vital signs are stable and she was afebrile with a normal white count. DESCRIPTION OF PROCEDURE: The patient was brought to the operating room, laid supine on the table. After adequate IV pain and sedative medications and general endotracheal intubation, the abdomen was prepped and draped in standard surgical fashion. A 0.5% Marcaine with epinephrine was used to anesthetize overlying skin in the left upper abdominal quadrant and a transverse skin incision made using a 15 blade. An 0 silk suture was applied to the medial aspect incision for retraction and a Veress needle inserted with a low opening pressure of 0 mmHg and the abdomen was insufflated to 15 mmHg pressure. The Veress needle removed and a 5 mm XL trocar placed followed by a 5 mm 45-degree angle laparoscope visualizing the peritoneal cavity. A 4-quadrant abdominal exploration was performed. There were dilated loops of small bowel as well as significant adhesion tissue towards the pelvis as well as a clear transudative ascitic peritoneal fluid. There was also a loop of edematous bowel with venous congestion; however, no arterial insufficiency. Under direct visualization, we then proceeded to place an infraumbilical 10 mm port after the skin and peritoneal lining were anesthetized using 0.5% Marcaine with epinephrine and a transverse skin incision made using a 15 blade. A right lateral 5 mm port was then placed. We then began to run the entire small bowel starting at the cecum where there were significant distal ileal adhesions in the pelvis from her previous hysterectomy. We then ran the entirety of the rest of the small bowel, which appeared to be free to the ligament of Treitz. We then proceeded with lysis of adhesions using the blunt dissection as well as a Sonicision until the pelvic adhesions were freed. This took approximately 60 minutes. The small bowel was ran again, which was completely free. There was a small enterotomy noted. This appeared to be new and iatrogenic in nature. This was then closed primarily using 2-0 Surgidac running suture using EndoStitch device. The abdomen was then copiously irrigated and suctioned out with visualization of good hemostasis. The 10 mm port site fascia and peritoneum were then closed under direct visualization using a Justin-Betzy device and 0 Vicryl suture. The abdomen was desufflated and the remaining ports removed. All skin incisions were closed using 4-0 Monocryl running subcuticular sutures. Wounds were then cleaned and covered with Dermabond. The patient tolerated the procedure well. We will start IV normal pain medication. We will also continue with NG tube decompression for there was a significant amount of output during surgery. Once she does have more bowel function, we will then proceed with removing the NG tube and start a clear liquid diet and advance from that point forward. Job ID: [id number] DocumentID: [id number] Dictated Date: 04/05/2019 16:27:21 Mutuel Machine Operator Date: 04/05/2019 20:41:28 Dictated By: HAILEY WEBSTER MD [facility] CENTERYudelka
[2019-04-05] MEDS: metroNIDAZOLE 500MG/100ML IVPB 100 ML IV SCH (20:48)
[2019-04-05] MEDS: PROPRANOLOL 20 MG (INDERAL) TABLET PO SCH (23:46)
--- NOTE | 2019-04-05 23:54 | NUR ---
dr bernabe called concerning pt heart rate 158 et notified of home med, new orders received Addendum: 04/06/19 at 0631 by MARÍA HUBBARD RN notified dr bernabe , pt urine output 30cc/hr et dark james, iv fluids at 200cc/hr no new orders
[2019-04-06] VITALS (8 sets, daily range): BP systolic 78–142; BP diastolic 52–87
[2019-04-06] MEDS: fentaNYL INJECTION 100 MCG/2 ML AMP IV PRN ×6 (01:38→23:45)
[2019-04-06] MEDS: D5 1/2 NS W/KCL 20 MEQ/L 1,000 ML IV SCH (04:22)
[2019-04-06 06:51] LABS: BASOPHILS % (AUTO) 0 % (0-10); EOSINOPHILS # (AUTO) 0.2 10^3/uL (0.0-0.3); EOSINOPHILS % (AUTO) 3 % (0-10); HEMATOCRIT 45 % (35-52); HEMOGLOBIN 15.2 G/DL (11.5-16.0); LYMPHOCYTES # (AUTO) 1.5 X 10^3 (1.0-4.0); LYMPHOCYTES % (AUTO) 28 % (12-44); MEAN CORPUSCULAR HEMOGLOBIN 32 PG (25-34); MEAN CORPUSCULAR HGB CONC 34 G/DL (32-36); MEAN CORPUSCULAR VOLUME 97 FL (80-99); MEAN PLATELET VOLUME 11.5 FL (7.4-10.4); MONOCYTES # (AUTO) 1.4 X 10^3 (0.0-1.0); MONOCYTES % (AUTO) 25 % (0-12); NEUTROPHILS # (AUTO) 2.5 X 10^3 (1.8-7.8); NEUTROPHILS % (AUTO) 44 % (42-75); PLATELET COUNT 170 10^3/uL (130-400); RED CELL DISTRIBUTION WIDTH 12.5 % (10.0-14.5); WHITE BLOOD COUNT 5.6 10^3/uL (4.3-11.0)
[2019-04-06 07:22] LABS: ALANINE AMINOTRANSFERASE 10 U/L (0-55); ALBUMIN 2.6 GM/DL (3.2-4.5); ALKALINE PHOSPHATASE 39 U/L (40-136); BILIRUBIN,TOTAL 0.8 MG/DL (0.1-1.0); BUN/CREATININE RATIO 14; CALCIUM 7.7 MG/DL (8.5-10.1); CARBON DIOXIDE 19 MMOL/L (21-32); CHLORIDE 105 MMOL/L (98-107); CREATININE SERUM 0.85 MG/DL (0.60-1.30); GFR ESTIMATED > 60; GLUCOSE 134 MG/DL (70-105); POTASSIUM 5.1 MMOL/L (3.6-5.0); SODIUM 131 MMOL/L (135-145)
--- NOTE | 2019-04-06 07:51 | NUR ---
DR WEBSTER NOTIFIED OF SODIUM AND POTASSIUM LABS FROM THIS AM. ORDER RECEIVED TO CHANGE FLUIDS TO 1/2NS SALINE WITH NO POTASSIUM AT 100ML/HR.
[2019-04-06] MEDS ORDERED: NON-FORMULARY MEDICATION 1 EA EA (Propranolol HCl 40 MG) PO SCH (09:00)
[2019-04-06] MEDS: CIPROFLOXACIN IV 400MG/200ML 200 ML IV SCH ×2 (09:09→23:44)
[2019-04-06] MEDS: metroNIDAZOLE 500MG/100ML IVPB 100 ML IV SCH ×2 (09:09→19:48)
[2019-04-06] MEDS: PROPRANOLOL 20 MG (INDERAL) TABLET PO SCH ×2 (09:09→21:00)
[2019-04-06] MEDS: PANTOPRAZOLE 40 MG (PROTONIX) VIAL IV SCH (09:09)
[2019-04-06] MEDS: oxyCODONE/APAP 5/325MG (PERCOCET 5) TABLET PO PRN (09:13)
--- NOTE | 2019-04-06 09:28 | Anesthesia-General Post-Op ---
General Patient Condition Mental Status/LOC: Same as Preop Cardiovascular: Satisfactory Nausea/Vomiting: Absent Respiratory: Satisfactory Pain: Controlled Complications: Absent Post Op Complications Complications None Follow Up Care/Instructions Patient Instructions None needed. Anesthesia/Patient Condition Patient Condition Patient is doing well, no complaints, stable vital signs, no apparent adverse anesthesia problems. No complications reported per nursing. D/C home per [facility] Criteria: Yes JOSE DAVID WAYNE CRNA Apr 06, 2019 09:28
[2019-04-06] MEDS: 1/2 NS IV SOLUTION 1,000 ML IV SCH ×2 (09:41→16:00)
--- NOTE | 2019-04-06 10:27 | Progress Note ---
Subjective Date Seen by a Provider: Apr 06, 2019 Time Seen by a Provider: 10:20 Subjective/Events-last exam doing ok. no bowel fxn yet. much less NGT output overnight(100ml). pain better controlled. no fever/chills. Objective Exam Vital Signs Date Time Temp Pulse Resp B/P (MAP) Pulse Ox O2 Delivery O2 Flow Rate FiO2 04/06/19 08:18 92 OxyMask 3.00 04/06/19 07:33 37.9 111 18 142/62 (88) 91 OxyMask 2.00 04/06/19 03:48 37.9 113 31 103/70 (81) 93 OxyMask 2.00 04/06/19 01:11 36.8 104 04/06/19 00:15 37.6 158 26 139/87 (104) 92 OxyMask 2.00 04/05/19 21:30 36.9 133 04/05/19 20:00 95 Simple Mask 2.00 04/05/19 20:00 37.9 146 34 135/86 (102) 95 OxyMask 2.00 04/05/19 17:17 36.8 99 18 166/95 (118) 93 Nasal Cannula 2.00 04/05/19 17:05 36.8 16 150/83 (105) 93 OxyMask 2 04/05/19 17:05 OxyMask 2 04/05/19 17:00 36.8 16 150/83 (105) 93 OxyMask 2 04/05/19 16:56 OxyMask 1.5 04/05/19 16:50 12 160/85 (110) 95 OxyMask 3 04/05/19 16:45 OxyMask 3 04/05/19 16:40 14 161/86 (111) 95 OxyMask 3 04/05/19 16:30 14 96 OxyMask 3 04/05/19 16:30 OxyMask 3 04/05/19 16:20 15 137/84 (101) 99 OxyMask 5 04/05/19 16:13 OxyMask 5 04/05/19 16:13 36.8 20 152/109 (123) 99 OxyMask 5 04/05/19 12:00 36.7 87 16 168/80 (109) 94 Room Air I & O 04/06/19 07:00 Intake Total 3300 ml Output Total 2275 ml Balance 1025 ml Capillary Refill : Less Than 3 SecondsLess Than 3 Seconds General Appearance: No Apparent Distress HEENT: PERRL/EOMI Neck: Full Range of Motion Respiratory: Chest Non Tender, Decreased Breath Sounds Cardiovascular: Regular Rate, Rhythm Gastrointestinal: soft, tenderness, other (inc clean/dry) Extremity: Normal Capillary Refill Neurologic/Psychiatric: Alert, Oriented x3 Skin: Normal Color Lymphatic: No Adenopathy Results Lab Laboratory Tests 04/06/19 06:23: White Blood Count 5.6, Red Blood Count 4.70, Hemoglobin 15.2, Hematocrit 45, Mean Corpuscular Volume 97, Mean Corpuscular Hemoglobin 32, Mean Corpuscular Hemoglobin Concent 34, Red Cell Distribution Width 12.5, Platelet Count 170, Mean Platelet Volume 11.5H, Neutrophils (%) (Auto) 44, Lymphocytes (%) (Auto) 28, Monocytes (%) (Auto) 25H, Eosinophils (%) (Auto) 3, Basophils (%) (Auto) 0, Neutrophils # (Auto) 2.5, Lymphocytes # (Auto) 1.5, Monocytes # (Auto) 1.4H, Eosinophils # (Auto) 0.2, Basophils # (Auto) 0.0, Sodium Level 131L, Potassium Level 5.1H, Chloride Level 105, Carbon Dioxide Level 19L, Anion Gap 7, Blood Urea Nitrogen 12, Creatinine 0.85, Estimat Glomerular Filtration Rate > 60, BUN/Creatinine Ratio 14, Glucose Level 134H, Calcium Level 7.7L, Corrected Calcium 8.8, Total Bilirubin 0.8, Aspartate Amino Transf (AST/SGOT) 13, Alanine Aminotransferase (ALT/SGPT) 10, Alkaline Phosphatase 39L, Total Protein 5.0L, Albumin 2.6L Microbiology 04/04/19 MRSA Screen - Final, Complete MRSA not isolated Assessment/Plan Assessment/Plan Assess & Plan/Chief Complaint SBO s/p laparoscopic CIARAN and enterorrhaphy. d/c gutierrez. await bowel fxn then d/c NGT and start clears. transition to PO home meds and pain meds. increase ambulation. Clinical Quality Measures DVT/VTE Risk/Contraindication: Risk Factor Score Per Nursin RFS Level Per Nursing on Admit: 4+=Very High HAILEY WEBSTER MD Apr 06, 2019 10:27
--- NOTE | 2019-04-06 11:30 | NUR ---
PT BP 86/54 MANUALLY HR 86. PT ASYMPTOMATIC RATING PAIN 8/10. DR WEBSTER NOTIFIED VIA PHONE. ORDER RECEIVED TO CHANGE DOSE OF PRN FENTANYL TO 50MCG FROM 100MCG AND TO GIVE X1 500ML BOLUS AT THIS TIME.
[2019-04-06] MEDS ORDERED: NS IV 500 ML 500 ML ONE (11:39)
[2019-04-06] MEDS ORDERED: NS IV 500 ML 500 ML IV ONE (11:45)
--- NOTE | 2019-04-06 13:00 | Occupational Ther Daily Note ---
OT Current Status-Daily Note Subjective Pt alert, lying in bed. O2 on, no c/o pain at this time. Agrees to therapy. Mental Status/Objective Patient Orientation: Person, Place, Time, Situation Attachments: IV, Oxygen ADL-Treatment Therapy Code Descriptions/Definitions Functional Mcgraw Measure: 0=Not Assessed/NA 4=Minimal Assistance 1=Total Assistance 5=Supervision or Setup 2=Maximal Assistance 6=Modified Mcgraw 3=Moderate Assistance 7=Complete IndependenceSCALE: Activities may be completed with or without assistive devices. 9-Hknvlmwkrp-gigipbx completes the activity by him/herself with no assistance from a helper. 5-Set-up or Clean-up Assistance-helper sets up or cleans up; patient completes activity. [place] assists only prior to or following the activity. 4-Supervision or Touching Assistance-helper provides verbal cues and/or touching/steadying and/or contact guard assistance as patient completes activity. Assistance may be provided throughout the activity or intermittently. 3-Partial/Moderate Assistance-helper does LESS THAN HALF the effort. [place] lifts, holds or supports trunk or limbs, but provides less than half the effort. 2-Substantial/Maximal Assistance-helper does MORE THAN HALF the effort. [place] lifts or holds trunk or limbs and provides more than half the effort. 3-Algnynviy-mjpozf does ALL the effort. Patient does none of the effort to complete the activity. Or, the assistance of 2 or more helpers is required for the patient to complete the activity. If activity was not attempted, code reason: 7-Patient Refused. 9-Not Applicable-not attempted and the patient did not perform the activity before the current illness, exacerbation or injury. 10-Not Attempted due to Environmental Limitations-(lack of equipment, weather restraints, etc.). 88-Not Attempted due to Medical Conditions or Safety Concerns. Other Treatment UE exercises against gravity, 3 sets 15 reps of 3 exercises. Skilled instruction for technique and position required. Pt fatigued easily and verbalized discomfort with movement. After therapy, pt lying in bed with call light/phone in reach. All needs met in room. OT Short Term Goals Short Term Goals 1=Demonstrate adherence to instructed precautions during ADL tasks. 2=Patient will verbalize/demonstrate understanding of assistive devices/modifications for ADL. 3=Patient will improve strength/tolerance for activity to enable patient to perform ADL's. OT Supervisor [employer] Goals Shelter Goals Time Frame: Apr 12, 2019 Eating (QC): 6 Oral Hygiene (QC): 6 Shower/Bathe Self (QC): 5 Upper Body Dressing (QC): 6 Lower Body Dressing (QC): 6 On/Off Footwear (QC): 6 Toileting Hygiene (QC): 6 Toilet/Commode Transfer (QC): 6 Additional Goals: 1-Demonstrate ADL Tasks, 2-Verbalize Understanding, 3- ImproveStrength/Christi 1=Demonstrate adherence to instructed precautions during ADL tasks. 2=Patient will verbalize/demonstrate understanding of assistive devices/modifications for ADL. 3=Patient will improve strength/tolerance for activity to enable patient to perform ADL's. OT Education/Plan Problem List/Assessment Assessment: Decreased Activ Tolerance, Decreased UE Strength, Impaired Self- Care Skills Pt would benefit from skilled OT to increase her independence in basic self care to allow her to safely return home to live by herself. Discharge Recommendations Plan/Recommendations: Continue POC Treatment Plan/Plan of Care Patient would benefit from OT for education, treatment and training to promote independence in ADL's, mobility, safety and/or upper extremity function for ADL's. Plan of Care: ADL Retraining, Functional Mobility, UE Funct Exercise/Act, OTHER (energy conservation education) Treatment Duration: Apr 12, 2019 Frequency: 5 times per week Estimated Hrs Per Day: .25 hour per day Agreement: Yes Rehab Potential: Fair Time/GCodes Start Time: 10:30 Stop Time: 10:40 Total Time Billed (hr/min): 10 Billed Treatment Time 1 visit-EX 1 (10 min) ELIDA CARDOZA Apr 06, 2019 13:00
--- NOTE | 2019-04-06 13:48 | Progress Note - Hospitalist ---
ELVA PEREZ MED STUDENT 04/06/19 1348: Subjective HPI/CC On Admission Date Seen by Provider: Apr 06, 2019 Time Seen by Provider: 08:45 Chief complaint: Small bowel obstruction medical management HPI: This is a 54yoWF who presented to the ER for the third time this week for abdominal pain found to have a small bowel obstruction and NG tube was placed, Dr. Young admitted the Pt and continues to have right lower quadrant pain. She denies any small bowel obstructions in the past. She is very hard of hearing on the right. She does smoke marijuana and denies any other significant problems but she does want something to drink. Subjective/Events-last exam * s/p laparoscopic CIARAN and enterorrhaphy. Cleared adhesions, closed enterotomy. * She reports she is feeling better. She appears to be feeling better, more energy and more alert. * She declined to sit up for lung auscultation or to allow me to auscultate her abdomen. * Her only complaint was of continued abdominal pain. * Fever, tachycardia, tachypnea, BP decreased but within normal range at 7 am, at 11 am fever, tachycardia, and tachypnea resolved, but hypotensive * Low Na, Ca, Alk Phos, Protien, Albumin, CO2, increased K and glucose Review of Systems General: No Chills HEENT: No Head Aches, No Sinus Congestion Pulmonary: No Dyspnea, No Cough Cardiovascular: No: Chest Pain, Edema Gastrointestinal: Nausea, Abdominal Pain; No: Vomiting Genitourinary: No Dysuria, No Frequency Objective Exam Vital Signs Vital Signs Date Time Temp Pulse Resp B/P (MAP) Pulse Ox O2 Delivery O2 Flow Rate FiO2 04/06/19 11:20 36.4 87 18 86/54 (65) 96 OxyMask 3.00 Capillary Refill : Less Than 3 SecondsLess Than 3 Seconds General Appearance: No Apparent Distress, WD/WN Respiratory: Lungs Clear, Normal Breath Sounds, No Accessory Muscle Use, No Respiratory Distress Cardiovascular: Regular Rate, Rhythm, No Edema, No Gallop, No Murmur, Normal Peripheral Pulses Neurologic/Psychiatric: Alert, Oriented x3 Results/Procedures Lab Laboratory Tests 04/06/19 06:23 Patient resulted labs reviewed. Assessment/Plan Assessment and Plan Assess & Plan/Chief Complaint Assessment: 1. SBO s/p laparoscopic CIARAN and enterorrhaphy 2. fluctuating vitals 3. hypothyroid 4. chronic back pain 5. migraines 6. anxiety 7. PTSD 8. depression Plan: 1. continue postsurgical protocol 2. monitor vitals for instability 3. continue PT/OT, ambulation 4. continue medications for chronic conditions once GI function returns Clinical Quality Measures DVT/VTE Risk/Contraindication: Risk Factor Score Per Nursin RFS Level Per Nursing on Admit: 4+=Very High LAURA ROB DO 04/06/192052: Subjective Subjective/Events-last exam Fever and tachycardia occurred but now its much improved. Denies any significant issue except for her abdominal pain. Appears to be much improved overall. Review of Systems General: Fatigue Gastrointestinal: Abdominal Pain Objective Exam General Appearance: No Apparent Distress, WD/WN, Chronically ill Respiratory: Lungs Clear Cardiovascular: Regular Rate, Rhythm Neurologic/Psychiatric: Alert, Oriented x3, No Motor/Sensory Deficits, Normal Mood/Affect Assessment/Plan Assessment and Plan Assess & Plan/Chief Complaint Supportive care Ambulate Diagnosis/Problems Diagnosis/Problems (1) SBO (small bowel obstruction) (2) Marijuana use, continuous Status: Acute (3) Hyponatremia Status: Acute Supervisory-Addendum Brief Verification & Attestation Participated in pt care: history, MDM, physical Personally performed: exam, history, MDM, supervision of care Care discussed with: Medical Student Procedures: n/a Results interpretation: Verified all documentation Verification and Attestation of Medical Student E/M Service A medical student performed and documented this service in my presence. I reviewed and verified all information documented by the medical student and made modifications to such information, when appropriate. I personally performed the physical exam and medical decision making. Laura Rob, Apr 06, 2019,20:52 ELVA PEREZ MED STUDENT Apr 06, 2019 13:48 LAURA ROB DO Apr 06, 2019 20:53
--- NOTE | 2019-04-06 14:35 | NUR ---
PT HAS HAD DARK URINE WITH AN OUTPUT OF 170 SINCE 0700. BP 90/60. PT IS ASYMPTOMATIC. DR WEBSTER NOTIFIED AND GAVE ORDERS TO LEAVE MARQUEZ CATHETER IN AND TO GIVE X1NS BOLUS. PT RESTING UP IN CHAIR AT THIS TIME. REPORTS FEELING BETTER SITTING UP.
[2019-04-06] MEDS ORDERED: NS IV 1000 ML 1,000 ML IV SCH (15:30)
--- NOTE | 2019-04-06 17:03 | NUR ---
BP 88/64 WITH URINE OUTPUT OF 50ML SINCE 1430. DR WEBSTER NOTIFIED. ORDER RECEIVED TO INCREASE IV FLUIDS TO 150ML/HR
[2019-04-07] VITALS: BP 99/61
[2019-04-07] MEDS: 1/2 NS IV SOLUTION 1,000 ML IV SCH ×4 (01:17→16:06)
[2019-04-07 04:00] VITALS: BP 97/65
[2019-04-07] MEDS: fentaNYL INJECTION 100 MCG/2 ML AMP IV PRN ×3 (05:15→23:51)
[2019-04-07 06:49] LABS: BASOPHILS % (AUTO) 0 % (0-10); EOSINOPHILS % (AUTO) 0 % (0-10); HEMATOCRIT 40 % (35-52); HEMOGLOBIN 13.2 G/DL (11.5-16.0); LYMPHOCYTES # (AUTO) 1.6 X 10^3 (1.0-4.0); LYMPHOCYTES % (AUTO) 13 % (12-44); MEAN CORPUSCULAR HEMOGLOBIN 32 PG (25-34); MEAN CORPUSCULAR HGB CONC 33 G/DL (32-36); MEAN CORPUSCULAR VOLUME 97 FL (80-99); MEAN PLATELET VOLUME 10.8 FL (7.4-10.4); MONOCYTES # (AUTO) 1.4 X 10^3 (0.0-1.0); MONOCYTES % (AUTO) 12 % (0-12); NEUTROPHILS # (AUTO) 9.1 X 10^3 (1.8-7.8); NEUTROPHILS % (AUTO) 75 % (42-75); PLATELET COUNT 193 10^3/uL (130-400); RED CELL DISTRIBUTION WIDTH 12.9 % (10.0-14.5); WHITE BLOOD COUNT 12.2 10^3/uL (4.3-11.0)
[2019-04-07 07:09] LABS: ALANINE AMINOTRANSFERASE 7 U/L (0-55); ALBUMIN 2.3 GM/DL (3.2-4.5); ALKALINE PHOSPHATASE 38 U/L (40-136); BILIRUBIN,TOTAL 0.9 MG/DL (0.1-1.0); BUN/CREATININE RATIO 20; CALCIUM 8.2 MG/DL (8.5-10.1); CARBON DIOXIDE 20 MMOL/L (21-32); CHLORIDE 104 MMOL/L (98-107); CREATININE SERUM 0.82 MG/DL (0.60-1.30); GFR ESTIMATED > 60; GLUCOSE 97 MG/DL (70-105); POTASSIUM 4.3 MMOL/L (3.6-5.0); SODIUM 131 MMOL/L (135-145); TOTAL PROTEIN 4.7 GM/DL (6.4-8.2)
[2019-04-07 08:00] VITALS: BP 105/63
[2019-04-07] MEDS: metroNIDAZOLE 500MG/100ML IVPB 100 ML IV SCH ×2 (08:15→21:18)
[2019-04-07] MEDS: PANTOPRAZOLE 40 MG (PROTONIX) VIAL IV SCH (08:15)
[2019-04-07] MEDS: PROPRANOLOL 20 MG (INDERAL) TABLET PO SCH ×2 (08:15→21:18)
[2019-04-07] MEDS: CIPROFLOXACIN IV 400MG/200ML 200 ML IV SCH ×2 (09:20→21:18)
[2019-04-07 12:00] VITALS: BP 116/70
--- NOTE | 2019-04-07 12:27 | Progress Note - Surgery ---
IKE PADILLA,MED STUDENT 04/07/19 1227: Subjective Date Seen by a Provider: Apr 07, 2019 Time Seen by a Provider: 11:00 Subjective/Events-last exam patient is feeling okay, complaining of some abdominal discomfort. No bowel function yet. Denies nausea, vomiting, chest pain, or shortness of breath. Objective Exam Vital Signs Date Time Temp Pulse Resp B/P (MAP) Pulse Ox O2 Delivery O2 Flow Rate FiO2 04/07/19 12:00 37.0 83 20 116/70 (85) 96 Nasal Cannula 2.00 04/07/19 09:47 Nasal Cannula 2.00 04/07/19 08:00 Nasal Cannula 2.00 04/07/19 08:00 36.9 94 18 105/63 (77) 95 Nasal Cannula 2.00 04/07/19 05:15 37.0 04/07/19 04:00 37.0 93 22 97/65 (76) 95 Nasal Cannula 3.00 04/07/19 00:00 37.4 94 22 99/61 (74) 92 Nasal Cannula 3.00 04/06/19 23:59 Nasal Cannula 3.00 04/06/19 23:45 36.9 04/06/19 20:00 95 Nasal Cannula 3.00 04/06/19 20:00 36.9 88 18 110/82 (91) 95 Nasal Cannula 3.00 04/06/19 17:00 88/64 (72) 04/06/19 16:00 36.2 81 18 78/52 (61) 95 Nasal Cannula 3.00 04/06/19 14:20 90/60 (70) I & O 04/07/19 07:00 Intake Total 0 ml Output Total 1520 ml Balance -1520 ml Capillary Refill : Less Than 3 SecondsLess Than 3 Seconds General Appearance: No Apparent Distress, WD/WN HEENT: Pharynx Normal, Moist Mucous Membranes Neck: Full Range of Motion, Non Tender, Supple Respiratory: Chest Non Tender, No Accessory Muscle Use, No Respiratory Distress Cardiovascular: Regular Rate, Rhythm, Normal Peripheral Pulses Gastrointestinal: soft, tenderness (mild diffuse tenderness), other (incision clean/dry, no erythema) Extremity: Normal Capillary Refill, No Calf Tenderness Neurologic/Psychiatric: Alert, No Motor/Sensory Deficits, Normal Mood/Affect Skin: Normal Color, Warm/Dry Lymphatic: No Adenopathy Results Lab Laboratory Tests 04/07/19 06:31: White Blood Count 12.2H, Red Blood Count 4.07L, Hemoglobin 13.2, Hematocrit 40, Mean Corpuscular Volume 97, Mean Corpuscular Hemoglobin 32, Mean Corpuscular Hemoglobin Concent 33, Red Cell Distribution Width 12.9, Platelet Count 193, Mean Platelet Volume 10.8H, Neutrophils (%) (Auto) 75, Lymphocytes (%) (Auto) 13, Monocytes (%) (Auto) 12, Eosinophils (%) (Auto) 0, Basophils (%) (Auto) 0, Neutrophils # (Auto) 9.1H, Lymphocytes # (Auto) 1.6, Monocytes # (Auto) 1.4H, Eosinophils # (Auto) 0.0, Basophils # (Auto) 0.0, Sodium Level 131L, Potassium Level 4.3, Chloride Level 104, Carbon Dioxide Level 20L, Anion Gap 7, Blood Urea Nitrogen 16, Creatinine 0.82, Estimat Glomerular Filtration Rate > 60, BUN/Creatinine Ratio 20, Glucose Level 97, Calcium Level 8.2L, Corrected Calcium 9.6, Total Bilirubin 0.9, Aspartate Amino Transf (AST/SGOT) 14, Alanine Aminotransferase (ALT/SGPT) 7, Alkaline Phosphatase 38L, Total Protein 4.7L, Albumin 2.3L Microbiology 04/04/19 MRSA Screen - Final, Complete MRSA not isolated Assessment/Plan Assessment/Plan Assessment/Plan SBO s/p laparoscopic CIARAN and enterorrhaphy d/c gutierrez if urine output greater than 0.5 cc/kg/hr await bowel fxn then d/c NGT and start clears increase ambulation, continue incentive spirometry Clinical Quality Measures DVT/VTE Risk/Contraindication: Risk Factor Score Per Nursin RFS Level Per Nursing on Admit: 4+=Very High TONI PETTIT DO 04/08/19 1410: Subjective Subjective/Events-last exam No flatus or bowel movement. NPO and ng tube in. Mild discomfort in her abdomen she states. Denies fever sweats chills shortness of breath or chest pain. Objective Exam General Appearance: No Apparent Distress, WD/WN HEENT: PERRL/EOMI Neck: Non Tender, Supple Respiratory: Chest Non Tender, No Accessory Muscle Use, No Respiratory Distress Cardiovascular: Regular Rate, Rhythm Gastrointestinal: distended (minimally), tenderness (incisional), other (incision clean/dry, no erythema) Extremity: Normal Capillary Refill Neurologic/Psychiatric: Alert, Oriented x3, No Motor/Sensory Deficits, Normal Mood/Affect Skin: Normal Color, Warm/Dry Lymphatic: No Adenopathy Assessment/Plan Assessment/Plan Assessment/Plan diagnostic laparoscopy, lysis of adhesions, enterorrhaphy. urine output adequate will dc gutierrez awaiting bowel function instructed to ambulate and use IS when passes flatus or bm will pull ng and start clears. Supervisory-Addendum Brief Verification & Attestation Participated in pt care: history, MDM, physical Personally performed: exam, history, MDM, supervision of care Care discussed with: Medical Student Procedures: n/a Results interpretation: Verified all documentation Verification and Attestation of Medical Student E/M Service A medical student performed and documented this service in my presence. I reviewed and verified all information documented by the medical student and made modifications to such information, when appropriate. I personally performed the physical exam and medical decision making. Toni Pettit, Apr 07, 2019,14:10 IKE PADILLA,MED STUDENT Apr 07, 2019 12:27 TONI PETTIT DO Apr 08, 2019 14:10
--- NOTE | 2019-04-07 12:47 | Progress Note - Hospitalist ---
Subjective HPI/CC On Admission Date Seen by Provider: Apr 07, 2019 Time Seen by Provider: 12:15 Chief complaint: Small bowel obstruction medical management HPI: This is a 54yoWF who presented to the ER for the third time this week for abdominal pain found to have a small bowel obstruction and NG tube was placed, Dr. Young admitted the Pt and continues to have right lower quadrant pain. She denies any small bowel obstructions in the past. She is very hard of hearing on the right. She does smoke marijuana and denies any other significant problems but she does want something to drink. Subjective/Events-last exam Patient doing much better Velez catheter was discontinued NG tube is still in place Slow recovery Review of Systems Gastrointestinal: Abdominal Pain Objective Exam Vital Signs Vital Signs Date Time Temp Pulse Resp B/P (MAP) Pulse Ox O2 Delivery O2 Flow Rate FiO2 04/07/19 12:00 37.0 83 20 116/70 (85) 96 Nasal Cannula 2.00 Capillary Refill : Less Than 3 SecondsLess Than 3 Seconds General Appearance: No Apparent Distress, WD/WN, Chronically ill Respiratory: Chest Non Tender, Lungs Clear, Normal Breath Sounds, No Accessory Muscle Use, No Respiratory Distress Cardiovascular: Regular Rate, Rhythm, No Edema, No Gallop, No JVD, No Murmur, Normal Peripheral Pulses Neurologic/Psychiatric: Alert, Oriented x3, No Motor/Sensory Deficits, Normal Mood/Affect Results/Procedures Lab Laboratory Tests 04/07/19 06:31 Patient resulted labs reviewed. Assessment/Plan Assessment and Plan Assess & Plan/Chief Complaint Assessment: Status post small bowel obstruction repair Postop ileus Hyponatremia Plan: Supportive care Ambulate Diagnosis/Problems Diagnosis/Problems (1) SBO (small bowel obstruction) (2) Marijuana use, continuous Status: Acute (3) Hyponatremia Status: Acute Clinical Quality Measures DVT/VTE Risk/Contraindication: Risk Factor Score Per Nursin RFS Level Per Nursing on Admit: 4+=Very High DANA ROB DO Apr 07, 2019 12:47
[2019-04-07 16:40] VITALS: BP 100/65
[2019-04-07 19:35] VITALS: BP_SYST 106; BP_SYST 160; BP_DIAS 73
[2019-04-08] VITALS: BP 105/59
[2019-04-08] MEDS: 1/2 NS IV SOLUTION 1,000 ML IV SCH ×3 (01:14→18:33)
[2019-04-08 04:00] VITALS: BP 112/66
[2019-04-08] MEDS: fentaNYL INJECTION 100 MCG/2 ML AMP IV PRN ×2 (05:51→09:17)
[2019-04-08 05:55] LABS: HEMOGLOBIN 11.7 G/DL (11.5-16.0); MEAN PLATELET VOLUME 11.1 FL (7.4-10.4); RED CELL DISTRIBUTION WIDTH 12.9 % (10.0-14.5); WHITE BLOOD COUNT 12.1 10^3/uL (4.3-11.0)
[2019-04-08 06:12] LABS: BUN/CREATININE RATIO 18; CALCIUM 8.3 MG/DL (8.5-10.1); CARBON DIOXIDE 22 MMOL/L (21-32); CHLORIDE 104 MMOL/L (98-107); CREATININE SERUM 0.68 MG/DL (0.60-1.30); GFR ESTIMATED > 60; GLUCOSE 91 MG/DL (70-105); POTASSIUM 3.8 MMOL/L (3.6-5.0); SODIUM 134 MMOL/L (135-145)
[2019-04-08 08:00] VITALS: BP 106/65
--- NOTE | 2019-04-08 08:41 | Progress Note - Surgery ---
KRYSTINA OMALLEY,MED STUDENT 04/08/19 0841: Subjective Date Seen by a Provider: Apr 08, 2019 Time Seen by a Provider: 08:15 Subjective/Events-last exam SBO S/P laparoscopic CIARAN and enterorrhaphy. Patient seen and examined. She states she is doing ok, her abdominal pain is the same as previous days and she rates it a 10/10 on the RLQ and LLQ. She has not passed has or had a bowel movement since surgery. She had her gutierrez removed yesterday and has been getting up to the commode to void. Review of Systems General: No Chills; Fatigue HEENT: No Head Aches Pulmonary: No Dyspnea; Cough Cardiovascular: No: Chest Pain, Lt Headedness Gastrointestinal: Abdominal Pain; No: Nausea, Vomiting, Diarrhea Genitourinary: No Dysuria, No Frequency; Incontinence (she states it is hard to get to the commode without assistance and has had a couple accidents) Neurological: Weakness; No: Confusion Objective Exam Vital Signs Date Time Temp Pulse Resp B/P (MAP) Pulse Ox O2 Delivery O2 Flow Rate FiO2 04/08/19 04:00 37.1 76 16 112/66 (81) 96 Nasal Cannula 2.00 04/08/19 00:00 37.1 75 20 105/59 (74) 95 Nasal Cannula 2.00 04/07/19 20:00 Nasal Cannula 2.00 04/07/19 19:35 37.1 85 18 106/73 (84) 96 Nasal Cannula 2.00 04/07/19 16:40 37.1 78 18 100/65 (77) 95 Nasal Cannula 2.00 04/07/19 12:00 37.0 83 20 116/70 (85) 96 Nasal Cannula 2.00 04/07/19 09:47 Nasal Cannula 2.00 I & O 04/08/19 07:00 Intake Total 1000 ml Output Total 1350 ml Balance -350 ml Capillary Refill : Less Than 3 SecondsLess Than 3 Seconds General Appearance: No Apparent Distress, WD/WN HEENT: PERRL/EOMI, Pharynx Normal, Moist Mucous Membranes Neck: Full Range of Motion, Non Tender, Supple Respiratory: Chest Non Tender, Lungs Clear, Normal Breath Sounds, No Respiratory Distress Cardiovascular: Regular Rate, Rhythm, No Murmur Peripheral Pulses: 2+ Radial Pulses (R), 2+ Radial Pulses (L) Gastrointestinal: soft, tenderness (diffuse), other (incisions clean/dry, no erythema, some bruising around umbilical incision ) Extremity: No Calf Tenderness, No Pedal Edema Neurologic/Psychiatric: Alert, Oriented x3 Skin: Normal Color, Warm/Dry Lymphatic: No Adenopathy Results Lab Laboratory Tests 04/08/19 05:38: White Blood Count 12.1H, Red Blood Count 3.56L, Hemoglobin 11.7, Hematocrit 35, Mean Corpuscular Volume 98, Mean Corpuscular Hemoglobin 33, Mean Corpuscular Hemoglobin Concent 34, Red Cell Distribution Width 12.9, Platelet Count 173, Mean Platelet Volume 11.1H, Sodium Level 134L, Potassium Level 3.8, Chloride Level 104, Carbon Dioxide Level 22, Anion Gap 8, Blood Urea Nitrogen 12, Creatinine 0.68, Estimat Glomerular Filtration Rate > 60, BUN/Creatinine Ratio 18, Glucose Level 91, Calcium Level 8.3L Microbiology 04/04/19 MRSA Screen - Final, Complete MRSA not isolated Assessment/Plan Assessment/Plan Assessment/Plan SBO S/P laparoscopic CIARAN and enterorrhaphy Awaiting bowel fxn return. Once returned d/c NGT and begin clear liquid diet Encouraged increase ambulation and incentive spirometry use 10 times per hour Clinical Quality Measures DVT/VTE Risk/Contraindication: Risk Factor Score Per Nursin RFS Level Per Nursing on Admit: 4+=Very High TONI LR DO 04/08/19 1420: Subjective Subjective/Events-last exam No flatus or bm. abdominal discomfort more at incisions. NG tube in place npo urinating a lot she states. Not ambulating a lot. Denies fever sweats chills shortness of breath or chest pain. Objective Exam General Appearance: No Apparent Distress HEENT: PERRL/EOMI Neck: Non Tender, Supple Respiratory: No Accessory Muscle Use, No Respiratory Distress Cardiovascular: Regular Rate, Rhythm Gastrointestinal: distended (slight), tenderness (mostly incisional), other (incisions clean/dry, no erythema, some bruising around umbilical incision ) Extremity: Non Tender Neurologic/Psychiatric: Alert, Oriented x3 Skin: Normal Color, Warm/Dry Lymphatic: No Adenopathy Assessment/Plan Assessment/Plan Assessment/Plan SBO S/P laparoscopic CIARAN and enterorrhaphy postoperative ileus awaiting bowel function repeat labs in a IS encouraged to ambulate Supervisory-Addendum Brief Verification & Attestation Participated in pt care: history, MDM, physical Personally performed: exam, history, MDM, supervision of care Care discussed with: Medical Student Procedures: n/a Results interpretation: Verified all documentation Verification and Attestation of Medical Student E/M Service A medical student performed and documented this service in my presence. I reviewed and verified all information documented by the medical student and made modifications to such information, when appropriate. I personally performed the physical exam and medical decision making. Toni Lr, Apr 08, 2019,14:20 KRYSTINA OMALLEY MED STUDENT Apr 08, 2019 08:41 TONI LR DO Apr 08, 2019 14:20
[2019-04-08] MEDS: metroNIDAZOLE 500MG/100ML IVPB 100 ML IV SCH ×2 (09:16→20:08)
[2019-04-08] MEDS: PANTOPRAZOLE 40 MG (PROTONIX) VIAL IV SCH (09:17)
[2019-04-08] MEDS: PROPRANOLOL 20 MG (INDERAL) TABLET PO SCH ×2 (09:30→20:08)
[2019-04-08] MEDS: CIPROFLOXACIN IV 400MG/200ML 200 ML IV SCH (10:48)
[2019-04-08 12:00] VITALS: BP 115/64
--- NOTE | 2019-04-08 12:49 | Progress Note - Hospitalist ---
Subjective HPI/CC On Admission Date Seen by Provider: Apr 08, 2019 Time Seen by Provider: 12:15 Chief complaint: Small bowel obstruction medical management HPI: This is a 54yoWF who presented to the ER for the third time this week for abdominal pain found to have a small bowel obstruction and NG tube was placed, Dr. Young admitted the Pt and continues to have right lower quadrant pain. She denies any small bowel obstructions in the past. She is very hard of hearing on the right. She does smoke marijuana and denies any other significant problems but she does want something to drink. Subjective/Events-last exam Patient feels better Up in chair today NGT still in place Wants coffee No increased pain noted Review of Systems Gastrointestinal: Abdominal Pain Objective Exam Vital Signs Vital Signs Date Time Temp Pulse Resp B/P (MAP) Pulse Ox O2 Delivery O2 Flow Rate FiO2 04/08/19 19:55 36.8 69 18 108/62 (77) 96 Nasal Cannula 2.00 Capillary Refill : Less Than 3 SecondsLess Than 3 Seconds General Appearance: No Apparent Distress, WD/WN Respiratory: Lungs Clear Cardiovascular: Regular Rate, Rhythm Neurologic/Psychiatric: Alert, Oriented x3, No Motor/Sensory Deficits, Normal Mood/Affect Results/Procedures Lab Laboratory Tests 04/08/19 05:38 Patient resulted labs reviewed. Assessment/Plan Assessment and Plan Assess & Plan/Chief Complaint Assessment: Status post small bowel obstruction repair Postop ileus Hyponatremia Plan: Supportive care Ambulate Diagnosis/Problems Diagnosis/Problems (1) SBO (small bowel obstruction) (2) Marijuana use, continuous Status: Acute (3) Hyponatremia Status: Acute Clinical Quality Measures DVT/VTE Risk/Contraindication: Risk Factor Score Per Nursin RFS Level Per Nursing on Admit: 4+=Very High DANA ROB DO Apr 08, 2019 12:49
[2019-04-08 16:10] VITALS: BP 112/67
[2019-04-08] MEDS: oxyCODONE/APAP 5/325MG (PERCOCET 5) TABLET PO PRN ×3 (16:41→23:46)
[2019-04-08 19:55] VITALS: BP 108/62
[2019-04-09 00:08] VITALS: BP 106/70
[2019-04-09] MEDS: 1/2 NS IV SOLUTION 1,000 ML IV SCH ×4 (00:13→20:31)
[2019-04-09 03:56] VITALS: BP 137/82
[2019-04-09 06:42] LABS: HEMOGLOBIN 10.6 G/DL (11.5-16.0); MEAN PLATELET VOLUME 10.5 FL (7.4-10.4); RED CELL DISTRIBUTION WIDTH 13.2 % (10.0-14.5); WHITE BLOOD COUNT 11.5 10^3/uL (4.3-11.0)
[2019-04-09 07:03] LABS: BUN/CREATININE RATIO 16; CALCIUM 8.3 MG/DL (8.5-10.1); CARBON DIOXIDE 21 MMOL/L (21-32); CHLORIDE 104 MMOL/L (98-107); CREATININE SERUM 0.62 MG/DL (0.60-1.30); GFR ESTIMATED > 60; GLUCOSE 74 MG/DL (70-105); MAGNESIUM 1.6 MG/DL (1.6-2.4); POTASSIUM 3.6 MMOL/L (3.6-5.0); SODIUM 136 MMOL/L (135-145)
[2019-04-09 08:00] VITALS: BP 147/93
[2019-04-09] MEDS: PANTOPRAZOLE 40 MG (PROTONIX) VIAL IV SCH (08:12)
[2019-04-09] MEDS: PROPRANOLOL 20 MG (INDERAL) TABLET PO SCH ×2 (08:12→20:32)
[2019-04-09] MEDS: metroNIDAZOLE 500MG/100ML IVPB 100 ML IV SCH ×2 (08:13→20:31)
--- NOTE | 2019-04-09 09:08 | Progress Note ---
Subjective Date Seen by a Provider: Apr 09, 2019 Time Seen by a Provider: 09:00 Subjective/Events-last exam doing ok. no bowel fxn yet. not ambulating well. minimal NGT output. minimal abd pain. AXR shows stool in colon. Objective Exam Vital Signs Date Time Temp Pulse Resp B/P (MAP) Pulse Ox O2 Delivery O2 Flow Rate FiO2 04/09/19 08:00 36.6 67 16 147/93 (111) 98 Room Air 04/09/19 08:00 97 Room Air 04/09/19 03:56 36.4 62 18 137/82 (100) 97 Nasal Cannula 2.00 04/09/19 00:08 36.4 70 16 106/70 (82) 96 Nasal Cannula 2.00 04/08/19 20:00 Nasal Cannula 2.00 04/08/19 19:55 36.8 69 18 108/62 (77) 96 Nasal Cannula 2.00 04/08/19 16:10 36.8 77 18 112/67 (82) 100 Nasal Cannula 2.00 04/08/19 12:00 37.0 70 18 115/64 (81) 93 Nasal Cannula 2.00 I & O 04/09/19 06:59 Intake Total 1300 ml Output Total 1850 ml Balance -550 ml Capillary Refill : Less Than 3 SecondsLess Than 3 Seconds General Appearance: No Apparent Distress HEENT: PERRL/EOMI Neck: Full Range of Motion Respiratory: Chest Non Tender, Normal Breath Sounds Cardiovascular: Regular Rate, Rhythm Gastrointestinal: soft, other (non-distended, minimal tenderness) Extremity: Normal Capillary Refill Neurologic/Psychiatric: Alert, Oriented x3 Skin: Normal Color Lymphatic: No Adenopathy Results Lab Laboratory Tests 04/09/19 06:33: White Blood Count 11.5H, Red Blood Count 3.32L, Hemoglobin 10.6L, Hematocrit 33L , Mean Corpuscular Volume 98, Mean Corpuscular Hemoglobin 32, Mean Corpuscular Hemoglobin Concent 33, Red Cell Distribution Width 13.2, Platelet Count 215, Mean Platelet Volume 10.5H, Sodium Level 136, Potassium Level 3.6, Chloride Level 104, Carbon Dioxide Level 21, Anion Gap 11, Blood Urea Nitrogen 10, Creatinine 0.62, Estimat Glomerular Filtration Rate > 60, BUN/Creatinine Ratio 16, Glucose Level 74, Calcium Level 8.3L, Magnesium Level 1.6 Microbiology 10/9/19 MRSA Screen - Final, Complete MRSA not isolated Assessment/Plan Assessment/Plan Assess & Plan/Chief Complaint SBO s/p laparoscopic CIARAN and enterorrhaphy. await bowel fxn then d/c NGT and start clears. transition to PO home meds and pain meds. increase ambulation. axr shows contrast throughout colon. start miralax Clinical Quality Measures DVT/VTE Risk/Contraindication: Risk Factor Score Per Nursin RFS Level Per Nursing on Admit: 4+=Very High HAILEY WEBSTER MD Apr 09, 2019 09:07
--- NOTE | 2019-04-09 09:12 | NUR ---
PRIOR TO A.M. MEDICATIONS PULSE WAS 67 AND B/P WAS 147/93.
--- NOTE | 2019-04-09 09:14 | Diagnostic Imaging Report ---
INDICATION: Small bowel obstruction. KUB at 8:46 AM FINDINGS: There is an NG tube projecting over the stomach. There are some distended small bowel loops with air-fluid levels suggesting at least partial small bowel obstruction. Contrast has passed into the colon from a previous upper GI study done on 04/04/2019. IMPRESSION: Partial small bowel obstruction that appears to have improved since 04/04/2019. Dictated by: Dictated on workstation # [id number]
[2019-04-09] MEDS: oxyCODONE/APAP 5/325MG (PERCOCET 5) TABLET PO PRN ×2 (10:43→20:32)
--- NOTE | 2019-04-09 11:59 | Occ Therapy Progress Note ---
Therapy Progress Note Pt refused therapy stating that she was tired, just took her pain pills and wanted to sleep. BURGOS attempted to encourage pt to complete ADLs and pt continued to refuse. 1-Refusal ELIDA CARDOZA Apr 09, 2019 11:59
[2019-04-09 12:00] VITALS: BP 136/71
--- NOTE | 2019-04-09 14:26 | Progress Note ---
Subjective Subjective/Events-last exam Patient states that she is feeling much better. No BM/flatus. Minimal NG output. Review of Systems Pulmonary: No Dyspnea, No Cough Cardiovascular: No: Chest Pain Gastrointestinal: Abdominal Pain; No: Nausea Objective Exam Last Set of Vital Signs Vital Signs Date Time Temp Pulse Resp B/P (MAP) Pulse Ox O2 Delivery O2 Flow Rate FiO2 04/09/19 12:00 36.1 82 16 136/71 (92) 93 Room Air 04/09/19 03:56 2.00 Capillary Refill : Less Than 3 SecondsLess Than 3 Seconds I&O Intake and Output 04/09/19 00:00 Intake Total 1300 ml Output Total 700 ml Balance 600 ml Intake Oral 0 ml IV Total 1300 ml Output Urine Total 650 ml Gastric Drainage Total 50 ml Drainage Total 0 ml # Voids 6 General: Alert, No Acute Distress Lungs: Clear to Auscultation, Normal Air Movement Heart: Regular Rate, No Murmurs Abdomen: Soft, No Masses, Other (mild ttp around surgical wounds) Extremities: No Edema, No Tenderness/Swelling Results/Procedures Lab Laboratory Tests 04/09/19 06:33: White Blood Count 11.5H, Red Blood Count 3.32L, Hemoglobin 10.6L, Hematocrit 33L , Mean Corpuscular Volume 98, Mean Corpuscular Hemoglobin 32, Mean Corpuscular Hemoglobin Concent 33, Red Cell Distribution Width 13.2, Platelet Count 215, Mean Platelet Volume 10.5H, Sodium Level 136, Potassium Level 3.6, Chloride Level 104, Carbon Dioxide Level 21, Anion Gap 11, Blood Urea Nitrogen 10, Creatinine 0.62, Estimat Glomerular Filtration Rate > 60, BUN/Creatinine Ratio 16, Glucose Level 74, Calcium Level 8.3L, Magnesium Level 1.6 Microbiology 04/04/19 MRSA Screen - Final, Complete MRSA not isolated Assessment/Plan Assessment/Plan (1) SBO (small bowel obstruction) Status: Acute Assessment & Plan: 04/09: Management per surgery, possible plan to pull NG soon (2) Marijuana use, continuous Status: Acute Assessment & Plan: - Discussed the need to discontinue use (3) Hyponatremia Status: Resolved Clinical Quality Measures DVT/VTE Risk/Contraindication: Risk Factor Score Per Nursin RFS Level Per Nursing on Admit: 4+=Very High PAMELLA WINN MD Apr 09, 2019 14:26
[2019-04-09] MEDS ORDERED: POLYETHYLENE GLYCOL 17 GM (MIRALAX) PACK PO NR (14:45)
--- NOTE | 2019-04-09 15:51 | NUR ---
Swing Bed Note: Asked Dr. Young if patient would benefit from a swing bed evaluation this a.m. Awaiting response.
[2019-04-09 16:08] VITALS: BP 108/69
--- NOTE | 2019-04-09 18:09 | NUR ---
NG CLAMPED PER DR. WEBSTER AT 0830 THIS A.M.
[2019-04-09 20:17] VITALS: BP 144/80
[2019-04-09] MEDS: POLYETHYLENE GLYCOL 17 GM (MIRALAX) PACK PO SCH (20:31)
[2019-04-10] VITALS: BP 114/69
[2019-04-10 04:00] VITALS: BP 125/78
[2019-04-10] MEDS: 1/2 NS IV SOLUTION 1,000 ML IV SCH ×3 (04:01→15:32)
[2019-04-10] MEDS: oxyCODONE/APAP 5/325MG (PERCOCET 5) TABLET PO PRN ×2 (06:00→16:41)
[2019-04-10 06:38] LABS: BASOPHILS % (AUTO) 0 % (0-10); EOSINOPHILS # (AUTO) 0.2 10^3/uL (0.0-0.3); EOSINOPHILS % (AUTO) 2 % (0-10); HEMATOCRIT 32 % (35-52); HEMOGLOBIN 10.5 G/DL (11.5-16.0); LYMPHOCYTES # (AUTO) 1.5 X 10^3 (1.0-4.0); LYMPHOCYTES % (AUTO) 17 % (12-44); MEAN CORPUSCULAR HEMOGLOBIN 33 PG (25-34); MEAN CORPUSCULAR HGB CONC 33 G/DL (32-36); MEAN CORPUSCULAR VOLUME 98 FL (80-99); MEAN PLATELET VOLUME 10.4 FL (7.4-10.4); MONOCYTES # (AUTO) 1.7 X 10^3 (0.0-1.0); MONOCYTES % (AUTO) 19 % (0-12); NEUTROPHILS # (AUTO) 5.3 X 10^3 (1.8-7.8); NEUTROPHILS % (AUTO) 61 % (42-75); PLATELET COUNT 253 10^3/uL (130-400); RED CELL DISTRIBUTION WIDTH 13.2 % (10.0-14.5); WHITE BLOOD COUNT 8.7 10^3/uL (4.3-11.0)
[2019-04-10 06:59] LABS: BUN/CREATININE RATIO 10; CALCIUM 7.8 MG/DL (8.5-10.1); CARBON DIOXIDE 19 MMOL/L (21-32); CHLORIDE 106 MMOL/L (98-107); CREATININE SERUM 0.61 MG/DL (0.60-1.30); GFR ESTIMATED > 60; GLUCOSE 90 MG/DL (70-105); POTASSIUM 3.6 MMOL/L (3.6-5.0); SODIUM 138 MMOL/L (135-145)
[2019-04-10 08:00] VITALS: BP 132/78
[2019-04-10] MEDS: PANTOPRAZOLE 40 MG (PROTONIX) VIAL IV SCH (08:40)
[2019-04-10] MEDS: metroNIDAZOLE 500MG/100ML IVPB 100 ML IV SCH (08:40)
[2019-04-10] MEDS: PROPRANOLOL 20 MG (INDERAL) TABLET PO SCH ×2 (08:40→20:58)
[2019-04-10] MEDS: POLYETHYLENE GLYCOL 17 GM (MIRALAX) PACK PO SCH ×2 (08:43→20:58)
--- NOTE | 2019-04-10 08:44 | NUR ---
PRIOR TO A.M. MEDICATIONS PULSE WAS 87 AND B/P WAS 132/78
--- NOTE | 2019-04-10 09:23 | Occ Therapy Progress Note ---
Therapy Progress Note Pt sleeping when BURGOS entered room. Pt refused therapy stating that she was tired, just took her pain pills and wanted to sleep. BURGOS attempted to encourage pt to complete ADLs and pt continued to refuse. Will check on pt later. 1-Refusal ELIDA CARDOZA Apr 10, 2019 09:23
--- NOTE | 2019-04-10 10:08 | NUR ---
NG tube removed per order, pt tolerated well, no difficulties. Will continue to monitor.
--- NOTE | 2019-04-10 10:08 | NUR ---
NEW ORDERS RECEIVED TO OREMOVE NG TUBE FROM HER NARE. THIS RN HAD TYRONE AGUILAR REMOVE NG TUBE AT THIS TIME. PATIENT TOLERATED WELL. NEW DIET STARTED AND ORDERED FOR THIS PATIENT AT THIS TIME.
[2019-04-10 12:00] VITALS: BP 165/83
--- NOTE | 2019-04-10 13:31 | Occupational Ther Daily Note ---
OT Current Status-Daily Note Subjective Pt alert, in bathroom. Pt agrees to therapy. No c/o pain. Pt is slow with movements and takes increased time to complete tasks. Mental Status/Objective Patient Orientation: Person, Place, Time, Situation Attachments: IV ADL-Treatment Pt ambulates with FWW to bathroom to complete toileting and toileting hygiene, independently. Transferred into shower using grabbars and FWW, independently. Completed shower using hand held shower, grabbar and shower bench independently. Assist to cover up IV. Pt doffed/donned socks and briefs by self. Pt only has hospital gown for upper body dressing and is independent with donning/doffing this. Pt ambulates back to room and sits EOB, physician in room. Reported to nrs that pt is sitting EOB after shower. Call light/phone in reach. All needs met in room. Therapy Code Descriptions/Definitions Functional [place] Measure: 0=Not Assessed/NA 4=Minimal Assistance 1=Total Assistance 5=Supervision or Setup 2=Maximal Assistance 6=Modified [place] 3=Moderate Assistance 7=Complete IndependenceSCALE: Activities may be completed with or without assistive devices. 9-Ylnhwbtmpf-nnydziw completes the activity by him/herself with no assistance from a helper. 5-Set-up or Clean-up Assistance-helper sets up or cleans up; patient completes activity. [place] assists only prior to or following the activity. 4-Supervision or Touching Assistance-helper provides verbal cues and/or touching/steadying and/or contact guard assistance as patient completes activity. Assistance may be provided throughout the activity or intermittently. 3-Partial/Moderate Assistance-helper does LESS THAN HALF the effort. [place] lifts, holds or supports trunk or limbs, but provides less than half the effort. 2-Substantial/Maximal Assistance-helper does MORE THAN HALF the effort. [place] lifts or holds trunk or limbs and provides more than half the effort. 7-Rrmkotiiq-vrcsju does ALL the effort. Patient does none of the effort to complete the activity. Or, the assistance of 2 or more helpers is required for the patient to complete the activity. If activity was not attempted, code reason: 7-Patient Refused. 9-Not Applicable-not attempted and the patient did not perform the activity before the current illness, exacerbation or injury. 10-Not Attempted due to Environmental Limitations-(lack of equipment, weather restraints, etc.). 88-Not Attempted due to Medical Conditions or Safety Concerns. Eating (QC): 6 (Pt is now on clear liquid diet. Pt able to open all containers.) Shower/Bathe Self (QC): 6 Lower Body Dressing (QC): 6 (Footwear (QC) 6) Toileting Hygiene (QC): 6 Toilet Transfer (QC): 6 OT Short Term Goals Short Term Goals 1=Demonstrate adherence to instructed precautions during ADL tasks. 2=Patient will verbalize/demonstrate understanding of assistive devices/modifications for ADL. 3=Patient will improve strength/tolerance for activity to enable patient to pe rform ADL's. OT Refrigeration Engineering Teacher Goals Refrigeration Engineering Teacher Goals Time Frame: Apr 12, 2019 Eating (QC): 6 Oral Hygiene (QC): 6 Shower/Bathe Self (QC): 5 Upper Body Dressing (QC): 6 Lower Body Dressing (QC): 6 On/Off Footwear (QC): 6 Toileting Hygiene (QC): 6 Toilet/Commode Transfer (QC): 6 Additional Goals: 1-Demonstrate ADL Tasks, 2-Verbalize Understanding, 3- ImproveStrength/Christi 1=Demonstrate adherence to instructed precautions during ADL tasks. 2=Patient will verbalize/demonstrate understanding of assistive devices/modifications for ADL. 3=Patient will improve strength/tolerance for activity to enable patient to perform ADL's. OT Education/Plan Problem List/Assessment Pt would benefit from skilled OT to increase her independence in basic self care to allow her to safely return home to live by herself. Discharge Recommendations Plan/Recommendations: Continue POC Treatment Plan/Plan of Care Patient would benefit from OT for education, treatment and training to promote independence in ADL's, mobility, safety and/or upper extremity function for ADL's. Plan of Care: ADL Retraining, Functional Mobility, UE Funct Exercise/Act, OTHER (energy conservation education) Treatment Duration: Apr 12, 2019 Frequency: 5 times per week Estimated Hrs Per Day: .25 hour per day Agreement: Yes Rehab Potential: Fair Time/GCodes Start Time: 13:10 Stop Time: 14:00 Total Time Billed (hr/min): 50 Billed Treatment Time 1 visit-ADL 3 (50 min) ELIDA CARDOZA Apr 10, 2019 13:31
--- NOTE | 2019-04-10 14:26 | Progress Note ---
Subjective Date Seen by a Provider: Apr 10, 2019 Time Seen by a Provider: 14:20 Subjective/Events-last exam doing much better. 2 BM's today. tolerating clears. minimal abd pain. ambulating well. Objective Exam Vital Signs Date Time Temp Pulse Resp B/P (MAP) Pulse Ox O2 Delivery O2 Flow Rate FiO2 04/10/19 12:00 36.9 72 20 165/83 (110) 93 Room Air 04/10/19 08:00 37.2 87 20 132/78 (96) 91 Room Air 04/10/19 08:00 Room Air 04/10/19 04:00 36.8 85 16 125/78 (94) 94 Room Air 04/10/19 00:00 36.6 76 16 114/69 (84) 98 Room Air 04/09/19 20:17 36.7 69 20 144/80 (101) 94 Room Air 04/09/19 20:00 Room Air 04/09/19 16:08 36.7 73 20 108/69 (82) 94 Room Air 04/09/19 15:35 Nasal Cannula 2.00 I & O 04/10/19 07:00 Intake Total 4410 ml Output Total 1750 ml Balance 2660 ml Capillary Refill : Less Than 3 SecondsLess Than 3 Seconds General Appearance: No Apparent Distress HEENT: PERRL/EOMI Neck: Full Range of Motion Respiratory: Chest Non Tender, Normal Breath Sounds Cardiovascular: Regular Rate, Rhythm Gastrointestinal: normal bowel sounds, soft Extremity: Normal Capillary Refill Neurologic/Psychiatric: Alert, Oriented x3 Skin: Normal Color Lymphatic: No Adenopathy Results Lab Laboratory Tests 04/10/19 06:29: White Blood Count 8.7, Red Blood Count 3.22L, Hemoglobin 10.5L, Hematocrit 32L, Mean Corpuscular Volume 98, Mean Corpuscular Hemoglobin 33, Mean Corpuscular Hemoglobin Concent 33, Red Cell Distribution Width 13.2, Platelet Count 253, Mean Platelet Volume 10.4, Neutrophils (%) (Auto) 61, Lymphocytes (%) (Auto) 17, Monocytes (%) (Auto) 19H, Eosinophils (%) (Auto) 2, Basophils (%) (Auto) 0, N eutrophils # (Auto) 5.3, Lymphocytes # (Auto) 1.5, Monocytes # (Auto) 1.7H, Eosinophils # (Auto) 0.2, Basophils # (Auto) 0.0, Sodium Level 138, Potassium Level 3.6, Chloride Level 106, Carbon Dioxide Level 19L, Anion Gap 13, Blood Urea Nitrogen 6L, Creatinine 0.61, Estimat Glomerular Filtration Rate > 60, BUN/Creatinine Ratio 10, Glucose Level 90, Calcium Level 7.8L Microbiology 04/04/19 MRSA Screen - Final, Complete MRSA not isolated Assessment/Plan Assessment/Plan Assess & Plan/Chief Complaint SBO s/p laparoscopic CIARAN and enterorrhaphy. increase ambulation. cont miralax. start dys3 diet. if can tolerate diet will then d/c home Clinical Quality Measures DVT/VTE Risk/Contraindication: Risk Factor Score Per Nursin RFS Level Per Nursing on Admit: 4+=Very High HAILEY WEBSTER MD Apr 10, 2019 14:26
--- NOTE | 2019-04-10 15:47 | NUR ---
Dr Young contacted about discontinuing IV fluids
[2019-04-10 16:25] VITALS: BP 153/71
--- NOTE | 2019-04-10 18:18 | Progress Note ---
Subjective Subjective/Events-last exam Patient eating CLD. States that she is feeling weak but much better then when she got here. Having BM and flatus. Review of Systems Pulmonary: No Dyspnea, No Cough Cardiovascular: No: Chest Pain Gastrointestinal: Abdominal Pain (incisional pain); No: Nausea, Vomiting Neurological: Weakness Objective Exam Last Set of Vital Signs Vital Signs Date Time Temp Pulse Resp B/P (MAP) Pulse Ox O2 Delivery O2 Flow Rate FiO2 04/10/19 16:25 36.8 72 18 153/71 (98) 95 Room Air 04/09/19 15:35 2.00 Capillary Refill : Less Than 3 SecondsLess Than 3 Seconds I&O Intake and Output 04/10/19 00:00 Intake Total 4360 ml Output Total 2600 ml Balance 1760 ml Intake Oral 1160 ml IV Total 3200 ml Output Urine Total 2600 ml Gastric Drainage Total 0 ml Drainage Total 0 ml # Voids 6 # Bowel Movements 1 General: Alert, Oriented X3, Cooperative, No Acute Distress Lungs: Clear to Auscultation, Normal Air Movement Heart: Regular Rate, No Murmurs Abdomen: Normal Bowel Sounds, Soft, Other (incisional abdominal pain, no rebound or gaurding) Extremities: No Edema, No Tenderness/Swelling Results/Procedures Lab Laboratory Tests 04/10/19 06:29: White Blood Count 8.7, Red Blood Count 3.22L, Hemoglobin 10.5L, Hematocrit 32L, Mean Corpuscular Volume 98, Mean Corpuscular Hemoglobin 33, Mean Corpuscular Hemoglobin Concent 33, Red Cell Distribution Width 13.2, Platelet Count 253, Mean Platelet Volume 10.4, Neutrophils (%) (Auto) 61, Lymphocytes (%) (Auto) 17, Monocytes (%) (Auto) 19H, Eosinophils (%) (Auto) 2, Basophils (%) (Auto) 0, Neutrophils # (Auto) 5.3, Lymphocytes # (Auto) 1.5, Monocytes # (Auto) 1.7H, Eosinophils # (Auto) 0.2, Basophils # (Auto) 0.0, Sodium Level 138, Potassium Level 3.6, Chloride Level 106, Carbon Dioxide Level 19L, Anion Gap 13, Blood Urea Nitrogen 6L, Creatinine 0.61, Estimat Glomerular Filtration Rate > 60, BUN/Creatinine Ratio 10, Glucose Level 90, Calcium Level 7.8L Microbiology 04/04/19 MRSA Screen - Final, Complete MRSA not isolated Assessment/Plan Assessment/Plan (1) SBO (small bowel obstruction) Status: Acute Assessment & Plan: 04/09: Management per surgery, possible plan to pull NG soon 04/10: d/balta NG, patient eating CLD and if tolerating will advance to soft diet, encourage ambulation (2) Marijuana use, continuous Status: Acute Assessment & Plan: - Discussed the need to discontinue use (3) Hyponatremia Status: Resolved Clinical Quality Measures DVT/VTE Risk/Contraindication: Risk Factor Score Per Nursin RFS Level Per Nursing on Admit: 4+=Very High PAMELLA WINN MD Apr 10, 2019 18:18
[2019-04-10 20:44] VITALS: BP 152/88
[2019-04-11] VITALS: BP 140/75
[2019-04-11 04:00] VITALS: BP 143/72
[2019-04-11 06:35] LABS: WHITE BLOOD COUNT 7.8 10^3/uL (4.3-11.0)
[2019-04-11 06:36] LABS: BASOPHILS % (AUTO) 0 % (0-10); EOSINOPHILS # (AUTO) 0.2 10^3/uL (0.0-0.3); EOSINOPHILS % (AUTO) 2 % (0-10); HEMATOCRIT 32 % (35-52); HEMOGLOBIN 10.7 G/DL (11.5-16.0); LYMPHOCYTES # (AUTO) 1.9 X 10^3 (1.0-4.0); LYMPHOCYTES % (AUTO) 24 % (12-44); MEAN CORPUSCULAR HEMOGLOBIN 33 PG (25-34); MEAN CORPUSCULAR HGB CONC 33 G/DL (32-36); MEAN CORPUSCULAR VOLUME 97 FL (80-99); MEAN PLATELET VOLUME 10.9 FL (7.4-10.4); MONOCYTES # (AUTO) 1.6 X 10^3 (0.0-1.0); MONOCYTES % (AUTO) 21 % (0-12); NEUTROPHILS # (AUTO) 4.1 X 10^3 (1.8-7.8); NEUTROPHILS % (AUTO) 52 % (42-75); PLATELET COUNT 317 10^3/uL (130-400); RED CELL DISTRIBUTION WIDTH 13.5 % (10.0-14.5)
[2019-04-11 07:04] LABS: ALANINE AMINOTRANSFERASE 12 U/L (0-55); ALBUMIN 2.5 GM/DL (3.2-4.5); ALKALINE PHOSPHATASE 91 U/L (40-136); BILIRUBIN,TOTAL 1.3 MG/DL (0.1-1.0); BUN/CREATININE RATIO 7; CALCIUM 8.2 MG/DL (8.5-10.1); CARBON DIOXIDE 25 MMOL/L (21-32); CHLORIDE 104 MMOL/L (98-107); CREATININE SERUM 0.58 MG/DL (0.60-1.30); GFR ESTIMATED > 60; GLUCOSE 120 MG/DL (70-105); POTASSIUM 3.3 MMOL/L (3.6-5.0); SODIUM 140 MMOL/L (135-145); TOTAL PROTEIN 5.3 GM/DL (6.4-8.2)
[2019-04-11 07:26] LABS: BAND NEUTROPHILS 2 %; BASOPHILS % (MANUAL) 0 %; EOSINOPHILS % (MANUAL) 3 %; LYMPHOCYTES % (MANUAL) 25 %; MONOCYTES % (MANUAL) 18 %; NEUTROPHILS % (MANUAL) 52 %; RBC MORPH NORMAL
[2019-04-11] MEDS: PANTOPRAZOLE 40 MG (PROTONIX) VIAL IV SCH (07:58)
[2019-04-11] MEDS: PROPRANOLOL 20 MG (INDERAL) TABLET PO SCH (07:58)
[2019-04-11] MEDS: POLYETHYLENE GLYCOL 17 GM (MIRALAX) PACK PO SCH (07:58)
[2019-04-11 08:40] VITALS: BP 159/72
[2019-04-11] MEDS: oxyCODONE/APAP 5/325MG (PERCOCET 5) TABLET PO PRN ×2 (08:48→12:40)
--- NOTE | 2019-04-11 11:49 | Occ Therapy Progress Note ---
Therapy Progress Note Pt lying in bed when AUBREY entered room. Pt stated "I am tired and I don't want to take a shower." BURGOS attempted to have pt complete upper body dressing or oral care, pt reported that she was able to each. Pt has been up ad francois in room and hallways since yesterday. Pt has met all goals. Discharge pt from OT services. ELIDA CARDOZA Apr 11, 2019 11:49
[2019-04-11 12:00] VITALS: BP 126/77
--- NOTE | 2019-04-11 12:33 | NUR ---
RD FOLLOW-UP PMHx: hypothyroidism; ETOH abuse; Polysubstance use (marijuana) PT INTERACTION: Pt was semi-awake and pleasant during follow-up. Pt states current appetite is "not bad." Note pt consuming <50% of meals since diet advancement on 04/10, per chart review. Pt states no issues with n/v/c/d since assessment. Note last BM was 04/10, per chart review. ABNORMAL NUTRITION-RELATED LAB VALUES: Hgb 10.7 (L); Hct 32 (L); K 3.3 (L); BUN 4 (L); cr 0.58 (L); Ca 8.2 (L); Pro 5.3 (L); alb 2.5 (L); glu 120 (H); bili 1.3 (H) Est. kcal needs: 7480-7714 kcal (25-30 kcal/kg) Est. Pro needs: 77-92 g Pro (1.0-1.2 g Pro/kg) PES STATEMENT: Inadequate oral intake (NI-2.1) related to loss of appetite as evidenced by pt interview | <50% meals consumed since diet advancement INTERVENTION: Continue with current diet order of regular diet. Add Ensure Enlive to meals TID. Provides 350 kcal and 20 g Pro per serving. Encouraged pt to eat when able. Add MVI for possible thiamine and folate deficiency. MONITOR/EVALUATE: PO Intake; Plan of Care; Hydration Status; Weight Status; Lab Values Javier Zamora, MS, RD, LD Ext. 133
--- NOTE | 2019-04-11 13:32 | Discharge Summary ---
Diagnosis/Chief Complaint Date of Admission Apr 02, 2019 at 22:05 Date of Discharge Discharge Diagnosis Problems/Diagnosis: (1) SBO (small bowel obstruction) Assessment & Plan: 04/09: Management per surgery, possible plan to pull NG soon 04/10: d/balta NG, patient eating CLD and if tolerating will advance to soft diet, encourage ambulation Status: Acute (2) Marijuana use, continuous Assessment & Plan: - Discussed the need to discontinue use Status: Acute (3) Hyponatremia Status: Resolved Resolution Date/Time: 04/09/19 @ 14:25 Discharge Summary-Simple/Stand Consultations Discharge Physical Examination Allergies: Coded Allergies: Penicillins (Verified Allergy, Unknown, 01/08/08) hydrocodone (Verified Allergy, Unknown, 01/08/08) morphine (Verified Allergy, Unknown, 01/08/08) aspirin (Verified Adverse Reaction, Mild, STOMACH UPSET, 01/10/08) Vitals & I&Os Vital Sign - Last 12Hours Date Time Temp Pulse Resp B/P (MAP) Pulse Ox O2 Delivery O2 Flow Rate FiO2 04/11/19 08:40 36.7 72 20 159/72 (101) 93 Room Air 04/09/19 15:35 2.00 Intake and Output 04/11/19 00:00 Intake Total 1330 ml Balance 1330 ml Hospital Course See final discharge diagnosis. Discharge Instructions to patient/family Please see electronic discharge instructions given to patient. Discharge Medications Reviewed and agree with Discharge Medication list on patient's Discharge Instruction sheet Clinical Quality Measures DVT/VTE Risk/Contraindication: Risk Factor Score Per Nursin RFS Level Per Nursing on Admit: 4+=Very High PAMELLA WINN MD Apr 11, 2019 13:32
--- NOTE | 2019-04-11 13:34 | Discharge Instructions ---
Discharge [facility] Discharge Medications New Medications: Oxycodone HCl/Acetaminophen (Percocet 5-325 mg Tablet) 1 Each Tablet 1 TAB PO Q4H for PAIN-MODERATE MDD 6 TABS for 7 Days, #35 TAB Continued Medications: Divalproex Sodium (Divalproex Sodium) 500 Mg Tablet.dr 1000 MG PO DAILY, TAB TAKES 2 (500MG) TABLETS EVERY MORNING AND 3 (500MG) TABLETS IN THE EVENING Divalproex Sodium (Depakote) 500 Mg Tablet.dr 1500 MG PO HS, TAB TAKES 2 (500MG) TABLETS EVERY MORNING AND 3 (500MG) TABLETS IN THE EVENING Estradiol (Estradiol Tablet) 1 Mg Tablet 1 MG PO DAILY, TAB Ibuprofen (Ibuprofen) 800 Mg Tablet 800 MG PO TID PRN for PAIN-MILD, TAB Levothyroxine Sodium (Levothyroxine Sodium) 100 Mcg Tablet 100 MCG PO DAILY, TAB Ondansetron (Ondansetron Odt) 4 Mg Tab.rapdis 4 MG PO TID PRN for NAUSEA/VOMITING-1ST LINE, TAB Oxybutynin Chloride (Oxybutynin Chloride) 5 Mg Tablet 15 MG PO BID, TAB TAKES 3 (5MG) TABLETS Propranolol HCl (Propranolol HCl) 40 Mg Tablet 40 MG PO BID, TAB Risperidone (Risperidone) 1 Mg Tablet 1 MG PO HS, TAB Sumatriptan Succ/Naproxen Sod (Treximet 85-500 mg Tablet) 1 Each Tablet PO UD PRN for MIGRAINE, TAB TAKE 1 TABLET AT ONSET OF MIGRAINE- MAY REPEAT IN 2 HOURS IF NEEDED, MAX 2 TABS IN 24 HOURS Tizanidine HCl (Tizanidine HCl) 2 Mg Tablet 6 MG PO HS, TAB TAKES 3 (2MG) TABLETS Topiramate (Topiramate) 100 Mg Tablet 200 MG PO BID, TAB TAKES 2 (100MG) TABLETS Vilazodone Hydrochloride (Viibryd) 20 Mg Tablet 20 MG PO DAILY, TAB Patient Instructions Goal/Follow Up Appt: You have a f.u appt with Dr Berg on Apr 17 @ [id number] Activity & Diet Discharge Diet: Soft Diet Activity as Tolerated: Yes PAMELLA WINN MD Apr 11, 2019 13:34
[2019-04-11 14:46] VITALS: BP 159/72
[2019-04-12] MEDS ORDERED: PANTOPRAZOLE 40 MG (PROTONIX) TAB PO SCH (09:00)
== END 2019-04-11 15:10 | disposition home or self-care (01) | DRG 330 ==
LOC: EDUNIT# 20:47 → ER 20:48 → 4TH 22:05
PROVIDERS: ADMIT Surgery; ATTEND Surgery
PROC: 0D9670Z Drainage of Stomach with Drainage Device, Via Natural or Artificial Opening (ICD-10-PCS; 2019-04-02)
PROC: 0DQ84ZZ Repair Small Intestine, Percutaneous Endoscopic Approach (ICD-10-PCS; 2019-04-05)
PROC: 0DNB4ZZ Release Ileum, Percutaneous Endoscopic Approach (ICD-10-PCS; principal; 2019-04-05 14:43)
DX: K56.50 Intestinal adhesions [bands], unspecified as to partial versus complete obstruction (principal); E87.1 Hypo-osmolality and hyponatremia; K91.71 Accidental puncture and laceration of a digestive system organ or structure during a digestive system procedure; K56.7 Ileus, unspecified; G43.909 Migraine, unspecified, not intractable, without status migrainosus; F17.210 Nicotine dependence, cigarettes, uncomplicated; M54.9 Dorsalgia, unspecified; E03.9 Hypothyroidism, unspecified; F41.9 Anxiety disorder, unspecified; F32.9 Major depressive disorder, single episode, unspecified; F43.10 Post-traumatic stress disorder, unspecified; H91.91 Unspecified hearing loss, right ear; R82.90 Unspecified abnormal findings in urine; Z88.0 Allergy status to penicillin; Z88.5 Allergy status to narcotic agent
CPT/HCPCS: 36415; 71045; 74019; 74022; 74177; 74250; 80048; 80053; 80306; 80320; 81000; 82150; 83690; 83735; 85007; 85025; 85027; 86141; 87081; 93041; 94664; 96361; 96374; 96375; 96376

== ENCOUNTER → 2019-06-21 | Outpatient (CLI) | payer MEDICARE, MEDICAID ==
[~2019-06-21] MED LIST changes: +DIVA500T PO; +HOLD METFORMIN - RECEIVED CONTRAST 20 ML VIAL IV SCH; +IOHEXOL 350 MG/ML 100 ML (OMNIPAQUE 350) VIAL IV ONE; +NS 100 ML (IVPB) BAG IV ONE; +OXYC1TAB87 PO; +SUMA1TAB PO; +TIZA2TAB4 PO; +VILA20TA PO
[2019-06-21 12:01] LABS: BUN/CREATININE RATIO 8; CREATININE SERUM 0.74 MG/DL (0.60-1.30); GFR ESTIMATED > 60
--- NOTE | 2019-06-21 12:59 | Diagnostic Imaging Report ---
PROCEDURE: CT abdomen and pelvis with contrast. TECHNIQUE: Multiple contiguous axial images were obtained through the abdomen and pelvis after administration of intravenous contrast. Auto Exposure Controls were utilized during the CT exam to meet ALARA standards for radiation dose reduction. INDICATION: Leukocytosis and pancreatic mass. COMPARISON: Correlation is made with prior CT from 04/02/2019. FINDINGS: Lung bases demonstrate some scarring or subsegmental atelectasis in the lingula. Otherwise, lung bases are clear. Previously noted low densities in the liver are stable and may represent tiny cysts. The gallbladder is contracted. No biliary ductal dilatation is seen. No discrete pancreatic mass is identified. The spleen is unremarkable. No adrenal mass is detected. Left kidney contains a cortical low densities, too small to characterize but most likely cysts. There is no hydronephrosis. Aorta is normal in caliber but heavily calcified. Previously noted small bowel distention has resolved. No bowel obstruction is identified on today's study. In addition, the ascites previously noted has resolved. No free fluid or fluid collection is identified today. Partially opacified bladder is unremarkable. Uterus appears to be surgically absent. No definite abdominal or pelvic lymphadenopathy is seen. IMPRESSION: 1. Stable hepatic and renal cysts. 2. Previously noted findings of small bowel obstruction as well as ascites on prior exam have resolved. No acute feature is detected on today's exam. Dictated by: Dictated on workstation # [id number]
== END ==
LOC: RAD 11:25
PROVIDERS: ATTEND Family Medicine
DX: K86.89 Other specified diseases of pancreas (principal); D72.829 Elevated white blood cell count, unspecified; K76.89 Other specified diseases of liver; N28.1 Cyst of kidney, acquired
CPT/HCPCS: 36415; 74177; 82565; 84520

== ENCOUNTER → 2019-10-03 | Outpatient (CLI) | payer MEDICARE, MEDICAID ==
[~2019-10-03] MED LIST changes: -HOLD METFORMIN - RECEIVED CONTRAST 20 ML VIAL IV SCH; -IOHEXOL 350 MG/ML 100 ML (OMNIPAQUE 350) VIAL IV ONE; -NS 100 ML (IVPB) BAG IV ONE; +OXYB5TAB13 PO; -OXYB5TAB9 PO
[2019-10-03 14:54] LABS: HEMATOCRIT 41 % (35-52); HEMOGLOBIN 13.3 G/DL (11.5-16.0); MEAN CORPUSCULAR HEMOGLOBIN 32 PG (25-34); MEAN CORPUSCULAR HGB CONC 32 G/DL (32-36); MEAN CORPUSCULAR VOLUME 98 FL (80-99); MEAN PLATELET VOLUME 11.5 FL (7.4-10.4); PLATELET COUNT 171 10^3/uL (130-400); RED CELL DISTRIBUTION WIDTH 13.6 % (10.0-14.5); WHITE BLOOD COUNT 7.7 10^3/uL (4.3-11.0)
[2019-10-03 14:55] LABS: BASOPHILS % (AUTO) 0 % (0-10); EOSINOPHILS % (AUTO) 3 % (0-10); LYMPHOCYTES # (AUTO) 3.8 X 10^3 (1.0-4.0); LYMPHOCYTES % (AUTO) 49 % (12-44); MONOCYTES # (AUTO) 0.7 X 10^3 (0.0-1.0); MONOCYTES % (AUTO) 9 % (0-12); NEUTROPHILS % (AUTO) 39 % (42-75)
[2019-10-03 14:56] LABS: EOSINOPHILS # (AUTO) 0.2 10^3/uL (0.0-0.3)
== END ==
LOC: LAB FS 13:37
PROVIDERS: ATTEND Family Medicine
DX: K92.1 Melena (principal)
CPT/HCPCS: 36415; 85025

== ENCOUNTER → 2020-02-13 | Outpatient (CLI) | payer MEDICARE, MEDICAID ==
[~2020-02-13] MED LIST changes: -TIZA2TAB4 PO; +TIZA2TAB7 PO
== END ==
LOC: LAB FS 16:14
PROVIDERS: ATTEND Family Medicine
DX: E03.9 Hypothyroidism, unspecified (principal); D53.9 Nutritional anemia, unspecified
CPT/HCPCS: 36415; 82607; 82746; 84443

== ENCOUNTER → 2020-06-04 | Outpatient (CLI) | payer MEDICARE, MEDICAID ==
[~2020-06-04] MED LIST changes: -RISP1TAB3 PO; +RISP1TAB93 PO; -SUMA1TAB PO; +SUMA1TAB12 PO
[2020-06-04 15:06] LABS: BASOPHILS % (AUTO) 0 % (0-10); EOSINOPHILS % (AUTO) 3 % (0-10); HEMATOCRIT 38 % (35-52); HEMOGLOBIN 12.5 G/DL (11.5-16.0); LYMPHOCYTES % (AUTO) 50 % (12-44); MEAN CORPUSCULAR HEMOGLOBIN 33 PG (25-34); MEAN CORPUSCULAR VOLUME 100 FL (80-99); MEAN PLATELET VOLUME 11.3 FL (7.4-10.4); MONOCYTES % (AUTO) 8 % (0-12); NEUTROPHILS # (AUTO) 3.2 X 10^3 (1.8-7.8); NEUTROPHILS % (AUTO) 39 % (42-75); PLATELET COUNT 166 10^3/uL (130-400); WHITE BLOOD COUNT 8.2 10^3/uL (4.3-11.0)
[2020-06-04 15:07] LABS: EOSINOPHILS # (AUTO) 0.2 10^3/uL (0.0-0.3); LYMPHOCYTES # (AUTO) 4.1 X 10^3 (1.0-4.0); MONOCYTES # (AUTO) 0.6 X 10^3 (0.0-1.0); SMEAR SCAN COMMENT N
[2020-06-04 15:35] LABS: ALBUMIN 3.6 GM/DL (3.2-4.5); BILIRUBIN,TOTAL 0.2 MG/DL (0.1-1.0); CALCIUM 8.6 MG/DL (8.5-10.1); CREATININE SERUM 0.96 MG/DL (0.60-1.30); POTASSIUM 4.3 MMOL/L (3.6-5.0); TOTAL PROTEIN 6.5 GM/DL (6.4-8.2)
[2020-06-04 15:53] LABS: BAND NEUTROPHILS 0 %; BASOPHILS % (MANUAL) 0 %; EOSINOPHILS % (MANUAL) 2 %; LYMPHOCYTES % (MANUAL) 48 %; MONOCYTES % (MANUAL) 5 %; NEUTROPHILS % (MANUAL) 45 %
[2020-06-05 04:02] LABS: VALPROIC ACID 94.1 UG/ML (50.0-100.0)
[2020-06-05 09:07] LABS: MEAN CORPUSCULAR HGB CONC 33 G/DL (32-36)
== END ==
LOC: LAB FS 14:15
PROVIDERS: ATTEND Family Medicine
DX: Z51.81 Encounter for therapeutic drug level monitoring (principal); E03.9 Hypothyroidism, unspecified
CPT/HCPCS: 36415; 80053; 80164; 84443; 85007; 85027

== ENCOUNTER → 2020-12-23 | Outpatient (CLI) | payer MEDICARE, MEDICAID ==
[~2020-12-23] MED LIST changes: +SERT-413; -SERT50TA9; +TIZA-169 PO; -TIZA2TAB7 PO
[2020-12-23 16:33] LABS: WHITE BLOOD COUNT 7.3 10^3/uL (4.3-11.0)
[2020-12-23 16:34] LABS: HEMATOCRIT 42 % (35-52); HEMOGLOBIN 14.3 G/DL (11.5-16.0); LYMPHOCYTES % (AUTO) 42 % (12-44); MEAN CORPUSCULAR HEMOGLOBIN 34 PG (25-34); MEAN CORPUSCULAR HGB CONC 34 G/DL (32-36); MEAN CORPUSCULAR VOLUME 99 FL (80-99); MEAN PLATELET VOLUME 10.7 FL (7.4-10.4); NEUTROPHILS % (AUTO) 42 % (42-75); PLATELET COUNT 197 10^3/uL (130-400)
[2020-12-23 16:35] LABS: BASOPHILS % (AUTO) 0 % (0-10); EOSINOPHILS # (AUTO) 0.2 10^3/uL (0.0-0.3); EOSINOPHILS % (AUTO) 2 % (0-10); LYMPHOCYTES # (AUTO) 3.1 X 10^3 (1.0-4.0); MONOCYTES % (AUTO) 14 % (0-12); NEUTROPHILS # (AUTO) 3.1 X 10^3 (1.8-7.8)
[2020-12-23 16:38] LABS: POTASSIUM 4.4 MMOL/L (3.6-5.0); SODIUM 131 MMOL/L (135-145)
[2020-12-23 16:39] LABS: ALANINE AMINOTRANSFERASE 15 U/L (0-55); ALBUMIN 4.1 GM/DL (3.2-4.5); ALKALINE PHOSPHATASE 69 U/L (40-136); BILIRUBIN,TOTAL 0.3 MG/DL (0.1-1.0); BUN/CREATININE RATIO 10; CALCIUM 9.2 MG/DL (8.5-10.1); CARBON DIOXIDE 21 MMOL/L (21-32); CHLORIDE 98 MMOL/L (98-107); CREATININE SERUM 0.84 MG/DL (0.60-1.30); GFR ESTIMATED > 60; GLUCOSE 116 MG/DL (70-105); TOTAL PROTEIN 7.2 GM/DL (6.4-8.2)
[2020-12-24 15:31] LABS: VALPROIC ACID 78.6 UG/ML (50.0-100.0)
== END ==
LOC: LAB FS 15:22
PROVIDERS: ATTEND Family Medicine
DX: E03.9 Hypothyroidism, unspecified (principal); Z76.89 Persons encountering health services in other specified circumstances
CPT/HCPCS: 36415; 80053; 80164; 84443; 85025

== ENCOUNTER → 2021-01-06 | Outpatient (CLI) | payer MEDICARE, MEDICAID ==
[~2021-01-06] MED LIST changes: +GADOBUTROL 10 MMOL/10 ML (GADAVIST) VIAL IV ONE
--- NOTE | 2021-01-06 11:43 | Diagnostic Imaging Report ---
INDICATION: Long-standing bilateral hearing loss. COMPARISON: Exam is compared with brain MRI dated 05/31/2011. TECHNIQUE: Multiplanar, multisequence pre and post IV contrast-enhanced MRI brain performed. In addition to routine brain sequences, thin slices with and without contrast through the IACs are performed in multiple obliquities. FINDINGS: The seventh and eighth cranial nerve complexes appeared unremarkable. There was no cerebellopontine angle mass or mass effect. There is no mastoid effusion. Semicircular canals are unremarkable. The brainstem and posterior fossa are normal. The supratentorial brain appeared unremarkable. No mass, edema, hydrocephalus, hemorrhage, infarct, or suspicious white matter disease. After contrast was administered, there was no abnormal parenchymal or meningeal enhancement. The orbits and the paranasal sinuses are unremarkable. There is no mastoid effusion. Normal enhancement of the major dural venous sinuses is preserved. No focal or generalized cerebral edema. IMPRESSION: Unremarkable pre- and lzpy-lzmhaost-qttmyndr brain MRI and MRI IACs. Dictated by: Dictated on workstation # [id number]
== END ==
LOC: RAD 10:15
PROVIDERS: ATTEND Otolaryngology
DX: H90.A21 Sensorineural hearing loss, unilateral, right ear, with restricted hearing on the contralateral side (principal); H90.A22 Sensorineural hearing loss, unilateral, left ear, with restricted hearing on the contralateral side
CPT/HCPCS: 70553

== ENCOUNTER → 2021-03-31 | Outpatient (CLI) | payer MEDICARE, MEDICAID ==
[~2021-03-31] MED LIST changes: -GADOBUTROL 10 MMOL/10 ML (GADAVIST) VIAL IV ONE
[2021-03-31 17:18] LABS: CALCIUM 8.7 MG/DL (8.5-10.1); CREATININE SERUM 0.9 MG/DL (0.60-1.30); MAGNESIUM 1.7 MG/DL (1.6-2.4); POTASSIUM 4.2 MMOL/L (3.6-5.0)
== END ==
LOC: LAB FS 16:32
PROVIDERS: ATTEND Family Medicine
DX: E03.9 Hypothyroidism, unspecified (principal); R25.2 Cramp and spasm
CPT/HCPCS: 36415; 80048; 83735; 84443

== ENCOUNTER → 2021-05-28 | Outpatient (CLI) | payer MEDICARE, MEDICAID ==
[2021-05-28 13:28] LABS: BILIRUBIN,URINE NEGATIVE (NEGATIVE); CLARITY,URINE SL CLOUDY; COLOR,URINE YELLOW; GLUCOSE, URINE (UA) NEGATIVE (NEGATIVE); KETONES,URINE NEGATIVE (NEGATIVE); LEUKOCYTE ESTERASE ,URINE NEGATIVE (NEGATIVE); NITRITE,URINE NEGATIVE (NEGATIVE); PH,URINE 6.5 (5-9); PROTEIN,URINE NEGATIVE (NEGATIVE)
[2021-05-28 14:10] LABS: ALBUMIN 3.4 GM/DL (3.2-4.5); BILIRUBIN,TOTAL 0.2 MG/DL (0.1-1.0); CALCIUM 8.5 MG/DL (8.5-10.1); CREATININE SERUM 0.84 MG/DL (0.60-1.30); TOTAL PROTEIN 6.4 GM/DL (6.4-8.2)
[2021-05-28 14:23] LABS: HEMATOCRIT 37 % (35-52); MEAN CORPUSCULAR HEMOGLOBIN 34 pg (25-34); MEAN CORPUSCULAR HGB CONC 32 g/dL (32-36); MEAN CORPUSCULAR VOLUME 104 fL (80-99); MEAN PLATELET VOLUME 11.1 fL (9.0-12.2); PLATELET COUNT 125 10^3/uL (130-400); WHITE BLOOD COUNT 5.8 10^3/uL (4.3-11.0)
[2021-05-28 14:24] LABS: BASOPHILS % (AUTO) 0 % (0-10); EOSINOPHILS # (AUTO) 0.1 10^3/uL (0.0-0.3); EOSINOPHILS % (AUTO) 2 % (0-10); LYMPHOCYTES # (AUTO) 2.5 X 10^3 (1.0-4.0); LYMPHOCYTES % (AUTO) 43 % (12-44); MONOCYTES # (AUTO) 0.5 X 10^3 (0.0-1.0); MONOCYTES % (AUTO) 8 % (0-12); NEUTROPHILS # (AUTO) 2.7 X 10^3 (1.8-7.8); NEUTROPHILS % (AUTO) 46 % (42-75)
[2021-05-28 14:26] LABS: BACTERIA,URINE TRACE /HPF; RBC,URINE 0-2 /HPF; SQUAMOUS EPITHELIAL CELL,UR 0-2 /HPF; WBC,URINE RARE /HPF
[2021-05-28 14:31] LABS: AMPHETAMINE SCREEN, URINE NEGATIVE (NEGATIVE); BARBITURATE SCREEN URINE NEGATIVE (NEGATIVE); BENZODIAZEPINES SCREEN URINE NEGATIVE (NEGATIVE); CANNABINOID SCREEN, URINE POSITIVE (NEGATIVE); COCAINE SCREEN URINE NEGATIVE (NEGATIVE); METHADONE STAT NEGATIVE (NEGATIVE); METHAMPHETAMINE SCREEN URINE S NEGATIVE (NEGATIVE); OPIATE SCREEN URINE NEGATIVE (NEGATIVE); OXYCODONE STAT NEGATIVE (NEGATIVE); PROPOXYPHENE STAT NEGATIVE (NEGATIVE); TRICYCLIC ANTIDEPRESSANTS SCRE NEGATIVE (NEGATIVE)
[2021-05-28 15:36] LABS: VALPROIC ACID 141.3 UG/ML (50.0-100.0)
== END ==
LOC: LAB FS 13:00
PROVIDERS: ATTEND Family Medicine
DX: R41.82 Altered mental status, unspecified (principal)
CPT/HCPCS: 36415; 80053; 80164; 80306; 81000; 85025

== ENCOUNTER 2021-07-20 08:50 | Inpatient (IN) | payer MEDICARE, MEDICAID ==
[~2021-07-20] VITALS: Ht 170.2 cm; Wt 84.1 kg
--- OUTSIDE RECORDS SUMMARY | 2021-07-20 08:54 | XMS REPORT | Clinical Summary ---
Author Author [facility] Organization [facility] Address Unknown Phone Unavailable Care Team Providers Care Raw Hide Trimmer Name Role Phone No Pcp, Na PCP Unavailable Source Comments Some departments are not documenting in the electronic medical record. If you d o not see the information that you expected, contact Release of Information in [facility] Information Management department at [phone] for further assistan ce in locating additional records.[facility] Allergies Comments Active Allergy Reactions Severity Noted Date Acetaminophen STOMACH UPSET Low 12/15/2020 Tramadol NAUSEA AND Medium 08/27/2011 VOMITING, UNKNOWN, RASH Medications End Date Status Medication Sig Dispensed Refills Start Date Active vilazodone (VIIBRYD) 20 Viibryd 20 mg 0 mg tablet tablet TAKE 1 TABLET BY MOUTH DAILY Active topiramate (TOPAMAX) 100 topiramate 0 05/27 mg tablet 100 mg tablet 7 TAKE 2 TABLETS BY MOUTH TWICE DAILY Active risperiDONE (RISPERDAL) 1 risperidone 1 0 02/26 mg tablet mg tablet 8 TAKE 1 TABLET BY MOUTH DAILY Active levothyroxine (SYNTHROID) Take 125 mcg 0 125 mcg tablet by mouth 1 daily. Active estradioL (ESTRACE) 1 mg estradiol 1 0 05/12 tablet mg tablet 8 TAKE 1 TABLET BY MOUTH ONCE DAILY Active ibuprofen (MOTRIN) 800 mg ibuprofen 800 0 06/28 tablet mg tablet 9 TAKE 1 Tablet BY MOUTH TWICE DAILY Active albuterol sulfate (PROAIR albuterol 0 HFA) 90 mcg/actuation HFA sulfate HFA aerosol inhaler 90 mcg/actuation aerosol inhaler Inhale 2 puffs every 4 hours by inhalation route. Active butalbital/acetaminophen/ every 4 0 caffeine (FIORICET) hours. 50/325/40 mg tablet Active cholestyramine/aspartame Prevalite 4 0 (PREVALITE) 4 gram packet gram powder for susp in a packet MIX 1 PACKET DIRECTED AND DRINK TWICE DAILY Active cyanocobalamin 1,000 mcg cyanocobalami 0 tablet n (vit B-12) 1,000 mcg tablet Take 1 tablet by oral route. Active cyclobenzaprine every 8 0 (FLEXERIL) 10 mg tablet hours. 4 Active divalproex (DEPAKOTE EC) divalproex 0 09/[address] tablet 500 mg 7 tablet,delaye d release TAKE 2 TABLETS BY MOUTH EVERY MORNING AND TAKE 3 TABLETS BY MOUTH every night AT BEDTIME Active EPINEPHrine (EPIPEN) 1 epinephrine 0 01 mg/mL injection pen 0.3 mg/0.3 mL 8 (2-Pack) injection, auto-injector INJECT 0.3MG INTRAMUSCULAR LY FOR 1 DOSE Active ondansetron (ZOFRAN ODT) ondansetron 4 0 05/16 4 mg rapid dissolve mg 8 tablet disintegratin g tablet dissolve ONE tablet BY MOUTH EVERY 8 HOURS Active oxybutynin chloride TAKE 3 0 (DITROPAN) 5 mg tablet TABLETS BY 8 MOUTH 2 TIMES A DAY Active oxyCODONE/acetaminophen every 4 hours 0 (PERCOCET) 5/325 mg tablet Active Problems Problem Noted Date Sensorineural hearing loss (SNHL) of right ear with r estricted hearing of 12/15/2020 left ear Medical History Medical History Date Comments Migraines Social History Date Tobacco Use Types Packs/Day Years Used Started: 12/15/1977 Current Every Day Smoker 1 Smokeless Tobacco: Current User Comments Alcohol Use Standard Drinks/Week Never 0 (1 standard drink = 0.6 o z pure alcohol) Alcohol Habits Answer Date Recorded How often do you have a drink containing alcohol? Never 12/15/2020 How many drinks containing alcohol do you have on No t asked a typical day when you are drinking? How often do you have six or more drinks on one Not asked occasion? Comment: Not asked Sex Assigned at Date Recorded Not on file Last Filed Vital Signs Reading Time Taken Comments Vital Sign 102/69 12/15/2020 3:12 PM CDT Blood Pressure 79 12/15/2020 3:12 PM CDT Pulse 36.1 C (97 F) 12/15/2020 3:12 PM CDT Temperature - - Respiratory Rate - - Oxygen Saturation - - Inhaled Oxygen Concentration 76.7 kg (169 lb) 12/15/2020 3:12 PM CDT Weight 172.7 cm (5' 8") 12/15/2020 3:12 PM CDT Height 25.7 12/15/2020 3:12 PM CDT Body Mass Index Plan of Treatment Health Maintenance Due Date Last Done Comments MEDICARE ANNUAL WELLNESS 1965 VISIT HIV SCREENING 1978 DTAP/TDAP VACCINES (1 - 1981 Tdap) HEPATITIS C SCREENING 1981 PHYSICAL (COMPREHENSIVE) 1981 EXAM CERVICAL CANCER SCREENING 01/02/1984 BREAST CANCER SCREENING 2003 COLORECTAL CANCER 2013 SCREENING SHINGLES RECOMBINANT 2013 VACCINE (1 of 2) INFLUENZA VACCINE 01/25/2021 Results Not on filefrom Last 3 Months Insurance Type Payer Benefit Subscriber ID Effective Phone Address Plan / Dates Group [facility] [employer] [id number] 2018-P [phone] [address] [place] [address] Medicaid [employer] [place] [employer] [id number] 2018-P [address] [facility] [address] [place] [address] Advance Directives 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
[2021-07-20 09:14] LABS: BILIRUBIN,URINE NEGATIVE (NEGATIVE); CLARITY,URINE CLEAR; COLOR,URINE YELLOW; GLUCOSE, URINE (UA) NEGATIVE (NEGATIVE); KETONES,URINE TRACE (NEGATIVE); LEUKOCYTE ESTERASE ,URINE 1+ (NEGATIVE); NITRITE,URINE POSITIVE (NEGATIVE); PH,URINE 6.5 (5-9); PROTEIN,URINE TRACE (NEGATIVE)
--- NOTE | 2021-07-20 09:14 | ED General ---
General Stated Complaint: FALL Source of Information: Patient Exam Limitations: No Limitations History of Present Illness Date Seen by Provider: Jul 20, 2021 Time Seen by Provider: 08:58 Initial Comments Patient is a 56-year-old female who presents to the emergency department today by ambulance with a chief complaint of fall. Reportedly the patient had used her life alert call button to call 911. Patient cannot state how long she was on the floor. She has a wet cough, she states she has had it for "the last 5 hours". She did not hit her head or lose consciousness. She is complaining of some low back discomfort. She has been intermittently confused according to EMS at 1 point she looked around the ambulance instead and stated "there is no vampires in here". She is alert on arrival to location, year, month, primary care provider. She states that she thinks she just lost her balance today. EMS reports that her son is on his way to the hospital for further history. Timing/Duration: Other (unknown) Allergies and Home Medications Allergies Coded Allergies: Penicillins (Verified Allergy, Unknown, 01/08/08) hydrocodone (Verified Allergy, Unknown, 01/08/08) morphine (Verified Allergy, Unknown, 01/08/08) aspirin (Verified Adverse Reaction, Mild, STOMACH UPSET, 01/10/08) Patient Home Medication List Home Medication List Reviewed: Yes Divalproex Sodium (Divalproex Sodium) 500 Mg Tablet., 1,000 MG PO DAILY, (Reported) Entered as Reported by: ALIZA CAMEJO on 04/12/18 1634 Divalproex Sodium (Depakote) 500 Mg Tablet., 1,500 MG PO HS, (Reported) Entered as Reported by: MARIA ROTH on 04/03/19 0939 Estradiol (Estradiol Tablet) 1 Mg Tablet, 1 MG PO DAILY, (Reported) Entered as Reported by: ALIZA CAMEJO on 04/12/18 1634 Ibuprofen (Ibuprofen) 800 Mg Tablet, 800 MG PO TID PRN for PAIN-MILD, (Reported) Entered as Reported by: AILZA CAMEJO on 04/12/18 1634 Levothyroxine Sodium (Levothyroxine Sodium) 100 Mcg Tablet, 100 MCG PO DAILY, (Reported) Entered as Reported by: ALIZA CAMEJO on 04/12/18 1634 Ondansetron (Ondansetron Odt) 4 Mg Tab.rapdis, 4 MG PO TID PRN for NAUSEA/VOMITING-1ST LINE, (Reported) Entered as Reported by: MARIA ROTH on 04/03/19938 Oxybutynin Chloride (Oxybutynin Chloride) 5 Mg Tablet, 15 MG PO BID, (Reported) Entered as Reported by: ALIZA CAMEJO on 04/12/18 163 Oxycodone HCl/Acetaminophen (Percocet 5-325 mg Tablet) 1 Each Tablet, 1 TAB PO Q4H Prescribed by: HAILEY WEBSTER on 04/05/19 162 Propranolol HCl (Propranolol HCl) 40 Mg Tablet, 40 MG PO BID, (Reported) Entered as Reported by: ALIZA CAMEJO on 04/12/18 163 Risperidone (Risperidone) 1 Mg Tablet, 1 MG PO HS, (Reported) Entered as Reported by: ALIZA CAMEJO on 04/12/18 163 Sumatriptan Succ/Naproxen Sod (Treximet 85-500 mg Tablet) 1 Each Tablet, PO UD PRN for MIGRAINE, (Reported) Entered as Reported by: MARIA ROTH on 04/03/19938 Tizanidine HCl (Tizanidine HCl) 2 Mg Tablet, 6 MG PO HS, (Reported) Entered as Reported by: MARIA ROTH on 04/03/19938 Topiramate (Topiramate) 100 Mg Tablet, 200 MG PO BID, (Reported) Entered as Reported by: ALIZA CAMEJO on 04/12/18 163 Vilazodone Hydrochloride (Viibryd) 20 Mg Tablet, 20 MG PO DAILY, (Reported) Entered as Reported by: MARIA ROTH on 04/03/19938 Review of Systems Review of Systems Constitutional: see HPI Musculoskeletal: back pain (low back pain) Past Schkmgv-Urmdix-Pjdbea Hx Immunizations Up To Date Tetanus Booster (TDap): Less than 5yrs PED Vaccines UTD: Yes Past Medical History Surgeries: Yes (HYST/BSO; X 2; BLADDER SUGERY X 2; CARDIAC CATH 2007--NORMAL) Bladder Surgery, Section, Hysterectomy, Oophorectomy, Tonsillectomy Respiratory: No Currently Using CPAP: No Currently Using BIPAP: No Cardiac: No (CARDIAC CATH 2007--NORMAL. ) Neurological: Yes Headaches /Migraines [employer] History: Hysterectomy, Menopausal Genitourinary: Yes (BLADDER SURGERY X 2; ? INTERSTITIAL CYSTITIS ? ) Gastrointestinal: No Musculoskeletal: Yes Back Injury, Chronic Back Pain Endocrine: Yes Hypothyroidsim HEENT: Yes (POOR DENTITION ) Cancer: No Psychosocial: Yes (SUBSTANCE ABUSE; "ANGER ISSUES" ) Anxiety, PTSD, Depression Integumentary: No Blood Disorders: Yes Family Medical History Patient reports no known family medical history. Physical Exam Vital Signs Vital Signs - First Documented 07/20/21 08:53 Temp 36.7 Pulse 91 Resp 16 B/P (MAP) 122/78 (93) O2 Delivery Room Air Capillary Refill : Height, Weight, BMI Height: 5'8.00" Weight: 160lbs. 0oz. 72.907150si; 25.81 BMI Method:Stated General Appearance: No Apparent Distress, WD/WN, Chronically ill, Other (patient presents in an adult diaper soaked through to her clothes; filthy skin; overall unkempt) Eyes: Bilateral Eye Normal Inspection, Bilateral Eye PERRL, Bilateral Eye EOMI HEENT: PERRL/EOMI Neck: Full Range of Motion, Non Tender, Supple Respiratory: Lungs Clear, Normal Breath Sounds, No Accessory Muscle Use, No Respiratory Distress Cardiovascular: Regular Rate, Rhythm (80's), Normal Peripheral Pulses Gastrointestinal: Normal Bowel Sounds, Non Tender, Soft Back: Normal Inspection Extremity: Normal Capillary Refill, Normal Inspection, Non Tender, No Calf Tenderness, No Pedal Edema Neurologic/Psychiatric: Alert, Oriented x3, No Motor/Sensory Deficits, Normal Mood/Affect, Other (patient has weakness bilateral LE's - will not straight leg raise.) Skin: Normal Color, Warm/Dry, Other Progress/Results/Core Measures Suspected Sepsis SIRS Temperature: Pulse: Respiratory Rate: Laboratory Tests 07/20/21 09:17: White Blood Count 11.2H Blood Pressure / Mean: Laboratory Tests 07/20/21 09:17: Creatinine 0.81, Platelet Count 156, Total Bilirubin 0.6 Results/Orders Lab Results Laboratory Tests Test 07/20/21 09:09 07/20/21 09:17 07/20/21 09:21 Range/Units Urine Color YELLOW Urine Clarity CLEAR Urine pH 6.5 5-9 Urine Specific Tobias 1.020 1.016-1.022 Urine Protein TRACE H NEGATIVE Urine Glucose (UA) NEGATIVE NEGATIVE Urine Ketones TRACE H NEGATIVE Urine Nitrite POSITIVE H NEGATIVE Urine Bilirubin NEGATIVE NEGATIVE Urine Urobilinogen >=8.0 < = 1.0 MG/DL Urine Leukocyte Esterase 1+ H NEGATIVE Urine RBC (Auto) 3+ H NEGATIVE Urine RBC 5-10 H /HPF Urine WBC 25-50 H /HPF Urine Squamous Epithelial Cells 0-2 /HPF Urine Crystals NONE /LPF Urine Bacteria LARGE H /HPF Urine Casts NONE /LPF Urine Mucus NEGATIVE /LPF Urine Culture Indicated YES White Blood Count 11.2 H 4.3-11.0 10^3/uL Red Blood Count 3.17 L 3.80-5.11 10^6/uL Hemoglobin 10.3 L 11.5-16.0 g/dL Hematocrit 32 L 35-52 % Mean Corpuscular Volume 101 H 80-99 fL Mean Corpuscular Hemoglobin 33 25-34 pg Mean Corpuscular Hemoglobin Concent 32 32-36 g/dL Red Cell Distribution Width 13.9 10.0-14.5 % Platelet Count 156 130-400 10^3/uL Mean Platelet Volume 10.1 9.0-12.2 fL Immature Granulocyte % (Auto) 1 % Neutrophils (%) (Auto) 66 42-75 % Lymphocytes (%) (Auto) 11 L 12-44 % Monocytes (%) (Auto) 23 H 0-12 % Eosinophils (%) (Auto) 0 0-10 % Basophils (%) (Auto) 0 0-10 % Neutrophils # (Auto) 7.4 1.8-7.8 10^3/uL Lymphocytes # (Auto) 1.2 1.0-4.0 10^3/uL Monocytes # (Auto) 2.5 H 0.0-1.0 10^3/uL Eosinophils # (Auto) 0.0 0.0-0.3 10^3/uL Basophils # (Auto) 0.0 0.0-0.1 10^3/uL Immature Granulocyte # (Auto) 0.1 0.0-0.1 10^3/uL Neutrophils % (Manual) 65 % Lymphocytes % (Manual) 7 % Monocytes % (Manual) 22 % Eosinophils % (Manual) 0 % Basophils % (Manual) 0 % Band Neutrophils 6 % Blood Morphology Comment NORMAL Sodium Level 135 135-145 MMOL/L Potassium Level 3.6 3.6-5.0 MMOL/L Chloride Level 102 98-107 MMOL/L Carbon Dioxide Level 20 L 21-32 MMOL/L Anion Gap 13 5-14 MMOL/L Blood Urea Nitrogen 12 7-18 MG/DL Creatinine 0.81 0.60-1.30 MG/DL Estimat Glomerular Filtration Rate 84 BUN/Creatinine Ratio 15 Glucose Level 119 H 70-105 MG/DL Calcium Level 9.3 8.5-10.1 MG/DL Corrected Calcium 10.2 H 8.5-10.1 MG/DL Total Bilirubin 0.6 0.1-1.0 MG/DL Aspartate Amino Transf (AST/SGOT) 9 5-34 U/L Alanine Aminotransferase (ALT/SGPT) < 6 0-55 U/L Alkaline Phosphatase 64 40-136 U/L C-Reactive Protein High Sensitivity 21.77 H 0.00-0.50 MG/DL Total Protein 7.6 6.4-8.2 GM/DL Albumin 2.9 L 3.2-4.5 GM/DL Procalcitonin 0.09 <0.10 NG/ML Influenza Type A (RT-PCR) Not Detected Not Detecte Influenza Type B (RT-PCR) Not Detected Not Detecte SARS-CoV-2 RNA (RT-PCR) Not Detected Not Detecte My Orders Orders - ANGELICA HUNT MD Ed Iv/Invasive Line Start (07/20/21 09:06) Cbc With Automated Diff (07/20/21 09:06) Comprehensive Metabolic Panel (07/20/21 09:06) Ua Culture If Indicated (07/20/21 09:06) Chest 1 View, Ap/Pa Only (07/20/21 09:06) Covid 19 Inhouse Test (07/20/21 09:06) Influenza A And B By Pcr (07/20/21 09:06) Isolation Central Supply Req (07/20/21 09:06) Procalcitonin (Pct) (07/20/21 09:06) Hs C Reactive Protein (07/20/21 09:06) Urine Culture (07/20/21 09:09) Manual Differential (07/20/21 09:17) Ceftriaxone 1 Gm Pre-Mix (Rocephin 1 Gm (07/20/21 10:45) Azithromycin Injection (Zithromax Inject (07/20/21 10:45) Blood Culture (07/20/21 10:59) Medications Given in ED Vital Signs/I&O 07/20/21 08:53 Temp 36.7 Pulse 91 Resp 16 B/P (MAP) 122/78 (93) O2 Delivery Room Air Capillary Refill : Progress Note : Time: 10:58 Progress Note Spoke with Tash the patient's [id number]-je-sdg. She states the patient's coiler through her medical provider is attempting to find her assisted living as she has had multiple falls at least 5 or 6 over the last 12 months. She is intermittently confused. She is responsible at home for her own medications. I discussed with Tash the best case scenario is to probably admit her to the hospital for treatment of this pneumonia and urinary tract infection and have licensed master social worker work with her employment evaluator/case manager to find placement for her. She is agreeable to this. Patient's vital signs are stable she is resting/sleeping with oxygen saturations at 92 to 93%. Not on oxygen. She has a rather large pneumonia. Rocephin and azithromycin ordered. Diagnostic Imaging Diagonstic Imaging: Xray Plain Films/CT/US/NM/MRI: chest Comments [facility]. [place], [place] NAME: VIVIANE DIGGS [facility] REC#: [id number] PT STATUS: REG ER : 1965 PHYSICIAN: ANGELICA HUNT MD ADMIT DATE: 07/20/21/ER Draft Date of Exam:07/20/21 CHEST 1 VIEW, AP/PA ONLY INDICATION: Cough and weakness. Frontal chest obtained at 9:47 a.m. is compared to 04/02/2019. Heart and mediastinal silhouette are normal. There is extensive new opacity in the left lower lung field, suspicious for pneumonia. Recommend followup to resolution, to exclude underlying lesion. There is no pneumothorax or pleural fluid IMPRESSION: New extensive infiltrate in the left mid to lower lung field, compatible with pneumonia. There is no pneumothorax or pleural fluid. Recommend followup until resolution to exclude underlying lesion. Dictated on workstation # [id number] Dict: 07/20/21 0953 Trans: 07/20/21 0956 [facility] [id number] Interpreted by: COTY MCCABE MD Electronically signed by: Departure Communication (Admissions) Time/Spoke to Admitting Phy: 11:[address] Lion Impression Primary Impression: Left lower lobe pneumonia Qualified Codes: J18.9 - Pneumonia, unspecified organism Additional Impression: Urinary tract infection Qualified Codes: N30.00 - Acute cystitis without hematuria Disposition: ADMITTED INPATIENT Condition: Stable Admissions Decision to Admit Reason: Admit from ER (General) Decision to Admit/Date: Jul 20, 2021 Time/Decision to Admit Time: 11:04 Departure-Patient Inst. Referrals: KEILA HSU MD (PCP/Family) Primary Care Physician ANGELICA HUNT MD Jul 20, 2021 09:14
[2021-07-20 09:29] LABS: BASOPHILS % (AUTO) 0 % (0-10); EOSINOPHILS % (AUTO) 0 % (0-10); HEMATOCRIT 32 % (35-52); HEMOGLOBIN 10.3 g/dL (11.5-16.0); LYMPHOCYTES # (AUTO) 1.2 10^3/uL (1.0-4.0); LYMPHOCYTES % (AUTO) 11 % (12-44); MEAN CORPUSCULAR HEMOGLOBIN 33 pg (25-34); MEAN CORPUSCULAR HGB CONC 32 g/dL (32-36); MEAN CORPUSCULAR VOLUME 101 fL (80-99); MEAN PLATELET VOLUME 10.1 fL (9.0-12.2); MONOCYTES # (AUTO) 2.5 10^3/uL (0.0-1.0); MONOCYTES % (AUTO) 23 % (0-12); NEUTROPHILS # (AUTO) 7.4 10^3/uL (1.8-7.8); NEUTROPHILS % (AUTO) 66 % (42-75); PLATELET COUNT 156 10^3/uL (130-400); WHITE BLOOD COUNT 11.2 10^3/uL (4.3-11.0)
[2021-07-20 09:31] LABS: BACTERIA,URINE LARGE /HPF; WBC,URINE 25-50 /HPF
[2021-07-20 09:32] LABS: SQUAMOUS EPITHELIAL CELL,UR 0-2 /HPF
[2021-07-20 09:39] LABS: ALBUMIN 2.9 GM/DL (3.2-4.5); CHLORIDE 102 MMOL/L (98-107); POTASSIUM 3.6 MMOL/L (3.6-5.0); SODIUM 135 MMOL/L (135-145)
[2021-07-20 09:41] LABS: CALCIUM 9.3 MG/DL (8.5-10.1)
[2021-07-20 09:42] LABS: GLUCOSE 119 MG/DL (70-105); TOTAL PROTEIN 7.6 GM/DL (6.4-8.2)
[2021-07-20 09:43] LABS: BILIRUBIN,TOTAL 0.6 MG/DL (0.1-1.0); CARBON DIOXIDE 20 MMOL/L (21-32)
[2021-07-20 09:45] LABS: ALKALINE PHOSPHATASE 64 U/L (40-136); CREATININE SERUM 0.81 MG/DL (0.60-1.30); GFR ESTIMATED 84
[2021-07-20 09:46] LABS: BUN/CREATININE RATIO 15
[2021-07-20 09:48] LABS: ALANINE AMINOTRANSFERASE < 6 U/L (0-55)
[2021-07-20 09:54] LABS: BAND NEUTROPHILS 6 %; BASOPHILS % (MANUAL) 0 %; EOSINOPHILS % (MANUAL) 0 %; LYMPHOCYTES % (MANUAL) 7 %; MONOCYTES % (MANUAL) 22 %; NEUTROPHILS % (MANUAL) 65 %; RBC MORPH NORMAL
--- NOTE | 2021-07-20 09:57 | Diagnostic Imaging Report ---
INDICATION: Cough and weakness. Frontal chest obtained at 9:47 a.m. is compared to 04/02/2019. Heart and mediastinal silhouette are normal. There is extensive new opacity in the left lower lung field, suspicious for pneumonia. Recommend followup to resolution, to exclude underlying lesion. There is no pneumothorax or pleural fluid IMPRESSION: New extensive infiltrate in the left mid to lower lung field, compatible with pneumonia. There is no pneumothorax or pleural fluid. Recommend followup until resolution to exclude underlying lesion. Dictated by: Dictated on workstation # [id number]
[2021-07-20] MEDS ORDERED: AZITHROMYCIN INJECTION 500 MG in NS (IVPB) 250 ML IV ONE (10:45)
[2021-07-20] MEDS ORDERED: cefTRIAXone 1 GM PRE-MIX 50 ML IV ONE (10:45)
[2021-07-20] MEDS ORDERED: ACETAMINOPHEN 325 MG TABLET PO PRN (13:30)
[2021-07-20] MEDS ORDERED: CATHETER FLUSH 10 ML SYR IV PRN (13:30)
[2021-07-20] MEDS: NS IV 1000 ML 1,000 ML IV SCH ×2 (13:54→23:26)
[2021-07-20 16:28] VITALS: BP 135/79
[2021-07-20] MEDS ORDERED: RT-ALBUTEROL/IPRATROPIUM 3 ML (DUONEB) VIAL INH PRN (16:45)
[2021-07-20] MEDS: RT-ALBUTEROL/IPRATROPIUM 3 ML (DUONEB) VIAL INH SCH (19:17)
[2021-07-20] MEDS ORDERED: guaiFENesin/DM (ROBITUSSIN DM) 10 ML UDC PO PRN (22:00)
[2021-07-20] MEDS ORDERED: guaiFENesin/DM (ROBITUSSIN DM) 10 ML UDC ONE (22:01)
[2021-07-21] MEDS: RT-ALBUTEROL/IPRATROPIUM 3 ML (DUONEB) VIAL INH SCH ×4 (02:44→21:40)
[2021-07-21] MEDS: cefTRIAXone 1 GM PRE-MIX 50 ML IV SCH (08:23)
[2021-07-21] MEDS: NS IV 1000 ML 1,000 ML IV SCH ×2 (08:23→23:16)
[2021-07-21] MEDS: AZITHROMYCIN 500 MG/NS 250 ML IVPB IV SCH ×2 (09:20)
[2021-07-21 09:47] LABS: BASOPHILS % (AUTO) 0 % (0-10); EOSINOPHILS % (AUTO) 0 % (0-10); HEMATOCRIT 31 % (35-52); LYMPHOCYTES # (AUTO) 2.6 10^3/uL (1.0-4.0); LYMPHOCYTES % (AUTO) 24 % (12-44); MEAN CORPUSCULAR HEMOGLOBIN 33 pg (25-34); MEAN CORPUSCULAR HGB CONC 32 g/dL (32-36); MEAN CORPUSCULAR VOLUME 101 fL (80-99); MEAN PLATELET VOLUME 10.3 fL (9.0-12.2); MONOCYTES # (AUTO) 1.9 10^3/uL (0.0-1.0); MONOCYTES % (AUTO) 18 % (0-12); NEUTROPHILS # (AUTO) 6.3 10^3/uL (1.8-7.8); NEUTROPHILS % (AUTO) 58 % (42-75); PLATELET COUNT 155 10^3/uL (130-400); WHITE BLOOD COUNT 10.9 10^3/uL (4.3-11.0)
[2021-07-21 10:17] LABS: CALCIUM 8.8 MG/DL (8.5-10.1); CREATININE SERUM 0.71 MG/DL (0.60-1.30); MAGNESIUM 1.9 MG/DL (1.6-2.4); POTASSIUM 3.5 MMOL/L (3.6-5.0)
[2021-07-21] MEDS ORDERED: RT-ALBUINH IH (10:27)
[2021-07-21] MEDS ORDERED: LEVO150T6 PO (10:27)
[2021-07-21] MEDS ORDERED: ESTR0.5T3 PO (10:27)
--- NOTE | 2021-07-21 13:41 | Occupational Therapy Eval ---
OT Evaluation-General/PLF Medical Diagnosis Admission Date Jul 20, 2021 at 11:06 Medical Diagnosis: PNA LLL, UTI, Debility Onset Date: Jul 20, 2021 Therapy Diagnosis Therapy Diagnosis: decreased ADL Status Height/Weight Height (Feet): 5 Height (Inches): 8.00 Weight (Pounds): 160 Weight (Ounces): 0 Precautions Precautions/Isolations: Fall Prevention, Standard Precautions Referral Physician: Ayad Referral Reason: Evaluation/Treatment Medical History Pertinent Medical History: Alcoholism, Hypothroidism, Smoking Additional Medical History ED due to fall Current History anxiety/depression, PTSD, hypothyroidism, headache/migraines. Social History Home: Single Level Current Living Status: Alone ADL-Prior Level of Function SCALE: Activities may be completed with or without assistive devices. 7-Jcdfthazaf-umfqvqi completes the activity by him/herself with no assistance from a helper. 5-Set-up or Clean-up Assistance-helper sets up or cleans up; patient completes activity. [place] assists only prior to or following the activity. 4-Supervision or Touching Assistance-helper provides verbal cues and/or touching/steadying and/or contact guard assistance as patient completes a ctivity. Assistance may be provided throughout the activity or intermittently. 3-Partial/Moderate Assistance-helper does LESS THAN HALF the effort. [place] lifts, holds or supports trunk or limbs, but provides less than half the effort. 2-Substantial/Maximal Assistance-helper does MORE THAN HALF the effort. [place] lifts or holds trunk or limbs and provides more than half the effort. 6-Fylblkyjm-kupwct does ALL the effort. Patient does none of the effort to complete the activity. Or, the assistance of 2 or more helpers is required for the patient to complete the activity. If activity was not attempted, code reason: 7-Patient Refused. 9-Not Applicable-not attempted and the patient did not perform the activity before the current illness, exacerbation or injury. 10-Not Attempted due to Environmental Limitations-(lack of equipment, weather restraints, etc.). 88-Not Attempted due to Medical Conditions or Safety Concerns. ADL PLOF Comments Pt reports being able to dress and toilet herself at PLOF independently. Pt indicates she has not showered in a very long time, when asked about sponge baths pt looked at this therapist but never provided a response. Pt has someone come into her house 2 times a week to assist with laundry and meal prep, up to 24 hours a week. Accuracy of information unknown, as pt appeared slightly confused and didn't answer all questions. Self Care: Needed Some Help Functional Cognition: Unknown OT Current Status Subjective Pt seated EOB with nursing staff, stating she needs to use the bathroom. Pt agreeable to OT tx. She required increased processing time with questions/instructions. Mental Status/Objective Patient Orientation: Person, Confused Attachments: IV Current Glasses/Contacts: Yes Upper Extremity ROM WFL during ADL session Upper Extremity Strength grossly 3/5 ADL-Treatment Lower Body Dressing (QC): 3 (Min A to thread RLE, pt able to thread LLE and perform pant hike.) Toileting Hygiene (QC): 3 (Min A with hygiene for thoroughness, pt able to manage pants.) Other Treatments Pt at EOB with nursing staff, completed sit to stand with CGA. Pt used FWW into bathroom, CGA and transferred to toilet. Pt completed toileting, requiring min A for thoroughness after BM. Pt donned brief, min A. Pt stood from toilet, min A, then returned to bed, CGA-Min A provided due to unsteadiness. Pt sat EOB, then transferred supine with SBA. Post tx, pt in bed, call light in reach and all needs met, bed alarm activated. Education OT Patient Education: Correct positioning, Modified ADL techniques, Progress toward Goal/Update tx plan, Purpose of tx/functional activities, Rehab process Teaching Recipient: Patient Teaching Methods: Discussion Response to Teaching: Verbalize Understanding OT Layer Up Goals Layer Up Goals 1=Demonstrate adherence to instructed precautions during ADL tasks. 2=Patient will verbalize/demonstrate understanding of assistive devices/modifications for ADL. 3=Patient will improve strength/tolerance for activity to enable patient to perform ADL's. OT Education/Plan Problem List/Assessment Assessment: Decreased Activ Tolerance, Decreased Safety Aware, Decreased UE Strength, Impaired Cognition, Impaired Coordination, Impaired Funct Balance, Impaired I ADL's, Impaired Self-Care Skills Discharge Recommendations Plan/Recommendations: Continue POC Treatment Plan/Plan of Care Patient would benefit from OT for education, treatment and training to promote independence in ADL's, mobility, safety and/or upper extremity function for ADL's. Plan of Care: ADL Retraining, Functional Mobility, UE Funct Exercise/Act Treatment Duration: Jul 31, 2021 Frequency: 3 times per week (3-5 times per week) Time/GCodes Start Time: 13:10 Stop Time: 13:33 Total Time Billed (hr/min): 23 Billed Treatment Time 1, EVM (10'), ADL (13') BYRON URBINA OT Jul 21, 2021 13:41
--- NOTE | 2021-07-21 14:34 | Physical Therapy Evaluation ---
PT Evaluation-General Medical Diagnosis Admission Date Jul 20, 2021 at 11:06 Medical Diagnosis: PNA LLL, UTI, Debility Onset Date: Jul 20, 2021 Therapy Diagnosis Therapy Diagnosis: weakness, debility Height/Weight Height (Feet): 5 Height (Inches): 8.00 Weight (Pounds): 160 Weight (Ounces): 0 Precautions Precautions/Isolations: Fall Prevention, Standard Precautions Referral Physician: Ayad Reason for Referral: Evaluation/Treatment Medical History Pertinent Medical History: Hypothroidism, Smoking Additional Medical History behavior disorders,multiple falls Current History Patient came to ED via EMS after falling at home. Patient is unaware how long she was on the ground before EMS got there and she does not recall what caused her to fall. Patient reports that she has had multiple falls within the past 6 months. Reviewed History: Yes Social History Home: Apartment Current Living Status: Alone Entry Into Home: Level Entry Prior Prior Level of Function SCALE: Activities may be completed with or without assistive devices. 1-Vppjmolkkm-dgwgsfq completes the activity by him/herself with no assistance from a helper. 5-Set-up or Clean-up Assistance-helper sets up or cleans up; patient completes activity. [place] assists only prior to or following the activity. 4-Supervision or Touching Assistance-helper provides verbal cues and/or touching/steadying and/or contact guard assistance as patient completes activity. Assistance may be provided throughout the activity or intermittently. 3-Partial/Moderate Assistance-helper does LESS THAN HALF the effort. [place] lifts, holds or supports trunk or limbs, but provides less than half the effort. 2-Substantial/Maximal Assistance-helper does MORE THAN HALF the effort. [place] lifts or holds trunk or limbs and provides more than half the effort. 2-Ssbixbwcd-nsqnar does ALL the effort. Patient does none of the effort to complete the activity. Or, the assistance of 2 or more helpers is required for the patient to complete the activity. If activity was not attempted, code reason: 7-Patient Refused. 9-Not Applicable-not attempted and the patient did not perform the activity be fore the current illness, exacerbation or injury. 10-Not Attempted due to Environmental Limitations-(lack of equipment, weather restraints, etc.). 88-Not Attempted due to Medical Conditions or Safety Concerns. Bed Mobility: 6 Transfers (B,C,W/C): 6 Gait: 6 Indoor Mobility (Ambulation): Independent Stairs: Unknown Prior Device Use: Cane PT Evaluation-Current Subjective Patient presents laying in bed and agrees to participate in therapy session. Objective Patient Orientation: Person, Confused Attachments: IV ROM/Strength ROM Lower Extremities WFL Strength Lower Extremities R LE: hip flexion 4/5, knee flex 4/5, knee ext 4/5 L LE: Hip flexion 3+/5, knee flexion 3+/5, knee ext 3+/5 Neuromuscular (Tone, Coordination, Reflexes) Grossly intact Sensory Vision: Wears Glasses Hearing: Impaired Sensation Right Lower Extremit: Intact Sensation Left Lower Extremity: Intact Transfers Roll Left to Right (QC): 6 Sit to Lying (QC): 6 Lying to Sitting/Side of Bed(Q: 6 Sit to Stand (QC): 3 Chair/Txd-pk-Yltpi Xfer(QC): 3 Patient required min assist for sit to stand transfer but was independent for all bed mobility Gait Does the Patient Walk?: Yes Mode of Locomotion: Walk Anticipated Mode of Locomotion: Walk Walk 10 feet (QC): 3 Walk 50 ft with 2 Turns(QC): 3 Distance: 50' Gait Assistive Device: FWW Comments/Gait Description Patient ambulated 50' within her room with min assist and FWW. Patient required assistance with turning the walker and not running into objects. Patient ambulated slowly throughout entire therapy session. Balance Sitting Static: Normal Sitting Dynamic: Normal Standing Static: Fair Standing Dynamic: Fair Assessment/Needs Patient completed therapy session but reported that she was fatigued. Patient had difficulty understanding instructions given. Patient reported that she had previously been going to therapy before this current hospital stay but was unable to tell me what she had gone to therapy for. Patient moved slowly throughout entire therapy session with bed mobility and ambulation. Rehab Potential: Fair PT Care Home Goals Care Home Goals PT Care Home Goals Time Frame: Aug 01, 2021 Roll Left & Right (QC): 6 Sit to Lying (QC): 6 Lying-Sitting on Side/Bed(QC): 6 Sit to Stand (QC): 6 Chair/Dxd-ig-Wpbmj Xfer(QC): 6 Toilet Transfer (QC): 6 Walk 10 feet (QC): 6 Walk 50ft with 2 Turns (QC): 6 Walk 150 ft (QC): 6 PT Plan Problem List Problem List: Activity Tolerance, Functional Strength, Safety, Balance, Gait, Transfer, Bed Mobility, ROM Treatment/Plan Treatment Plan: Continue Plan of Care Treatment Plan: Bed Mobility, Education, Functional Activity [place], Functional Strength, Gait, Safety, Therapeutic Exercise, Transfers Treatment Duration: Aug 01, 2021 Frequency: 6 times per week Estimated Hrs Per Day: .25 hour per day Patient and/or Family Agrees t: Yes Time/GCodes Time In: 1342 Time Out: 1400 Total Billed Treatment Time: 18 Total Billed Treatment 1 Visit [facility] 18 min KATHRYN MCCULLOUGH PT Jul 21, 2021 14:34
--- NOTE | 2021-07-21 18:11 | History & Physical-Hospitalist ---
History of Present Illness HPI/Chief Complaint Carrie Patrick is a 56 year old female with PMH depression, anxiety, PTSD, mood disorder, hypothyroidism, who presented after a fall. She pushed a Life Alert button and she was brought in by EMS. She reports having a cough. She has some chest pain with the cough. She denies fevers and chills. She has not been lightheaded or dizzy. She denies abdominal pain, nasuea, vomiting, diarrhea. She is feeling weak. Source: patient Exam Limitations: no limitations Date Seen 07/21/21 Time Seen by a Provider: 11:15 Attending Physician Shemar Matthews MD PCP Amee Berg MD Referring Physician Date of Admission Jul 20, 2021 at 11:06 Home Medications & Allergies Home Medications Reviewed patient Home Medication Reconciliation performed by pharmacy medication reconciliations civil laboratory technician and/or nursing. Patients Allergies have been reviewed. Allergies Allergies Coded Allergies Penicillins (Verified Allergy, Unknown, 01/08/08) hydrocodone (Verified Allergy, Unknown, 01/08/08) morphine (Verified Allergy, Unknown, 01/08/08) aspirin (Verified Adverse Reaction, Mild, STOMACH UPSET, 01/10/08) Past Iyettzg-Eyijxr-Lrmndy Hx Patient Social History Tobacco Use?: Yes Tobacco type used: Cigarettes Smoking Status: Current Everyday Smoker Smokeless Tobacco Frequency: Never a User Use of E-Cig and/or Vaping dev: No Use of E-Cig and/or Vaping Yony: Never a User Substance use?: No Alcohol Use?: No Pt feels they are or have been: No Immunizations Up To Date First/Initial COVID19 Vaccinat: None Tetanus Booster (TDap): Unknown Hepatitis A: No Hepatitis B: No PED Vaccines UTD: Yes Current Status status: No status: No Advance Directives: No Communicates: Verbally Primary Language: Mongolian Preferred Spoken Language: Mongolian Is interpretation needed?: No Sensory deficits: Vision impairment, Hearing impairment Implanted or Applied Medical D: None Past Medical History Surgeries: Bladder Surgery, Section, Hysterectomy, Oophorectomy, Tonsillectomy Currently Using CPAP: No Currently Using BIPAP: No 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 No Pertinent Family Hx Review of Systems Constitutional: weakness EENTM: no symptoms reported Respiratory: cough Cardiovascular: chest pain Gastrointestinal: no symptoms reported Genitourinary: no symptoms reported Musculoskeletal: no symptoms reported Skin: no symptoms reported Psychiatric/Neurological: No Symptoms Reported Physical Exam Physical Exam Vital Signs Vital Signs - First Documented 07/20/21 07/20/21 08:53 12:34 Temp 36.7 Pulse 91 Resp 16 B/P (MAP) 122/78 (93) Pulse Ox 97 O2 Delivery Room Air Capillary Refill : Less Than 3 Seconds Height, Weight, BMI Height: 5'8.00" Weight: 160lbs. 0oz. 72.087812pm; 29.03 BMI Method:Stated General Appearance: No Apparent Distress, WD/WN HEENT: PERRL/EOMI, Pharynx Normal Neck: Normal Inspection, Supple Respiratory: Lungs Clear, No Respiratory Distress Cardiovascular: Regular Rate, Rhythm, No Murmur Gastrointestinal: Normal Bowel Sounds, Non Tender, Soft Extremity: Normal Inspection, Non Tender, No Pedal Edema Neurologic/Psychiatric: Alert, Other (flat affect) Skin: Normal Color, Warm/Dry Results Results/Procedures Labs Laboratory Tests 07/20/21 09:17 07/21/21 09:38 Patient resulted labs reviewed. Imaging: Reviewed Imaging Report Assessment/Plan Admission Diagnosis Left lower lobe pneumonia Admission Status: Inpatient Order (span 2 midnights) Reason for Inpatient Admission: IV antibiotics Assessment and Plan Left lower lobe pneumonia Urinary tract infection Not septic CXR with LLL PNA UA consistent with UTI Urine culture pending Started on Rocephin IV fluids Weakness PT/OT Hypothyroidism Depression Anxiety PTSD Continue home meds DVT prophylaxis: Lovenox Diagnosis/Problems Diagnosis/Problems (1) Left lower lobe pneumonia Status: Acute Qualifiers: Pneumonia type: due to unspecified organism Qualified Codes: J18.9 - Pneumonia, unspecified organism (2) Urinary tract infection Status: Acute Qualifiers: Urinary tract infection type: acute cystitis Hematuria presence: without hematuria Qualified Codes: N30.00 - Acute cystitis without hematuria (3) Weakness Status: Acute SHEMAR MATTHEWS MD Jul 21, 2021 18:11
[2021-07-21] MEDS ORDERED: ENOXAPARIN 40 MG/0.4 ML (LOVENOX) SYR SC SCH (18:15)
[2021-07-21] MEDS: DIVALPROEX 500 MG DELAYED RELEASE (DEPAKOTE) TAB PO SCH (20:33)
[2021-07-21] MEDS: toPIRamate 100 MG (TOPAMAX) TAB PO SCH (20:33)
[2021-07-21] MEDS ORDERED: risperiDONE 1 MG (RisperDAL) TAB PO SCH (21:00)
[2021-07-22] MEDS: RT-ALBUTEROL/IPRATROPIUM 3 ML (DUONEB) VIAL INH SCH ×3 (03:30→15:18)
[2021-07-22] MEDS: NS IV 1000 ML 1,000 ML IV SCH (06:06)
[2021-07-22] MEDS ORDERED: LEVOTHYROXINE 150 MCG (LEVOTHROID) TAB PO SCH (06:30)
[2021-07-22] MEDS ORDERED: ESTRADIOL 1 MG TAB (ESTRACE) PO SCH (09:00)
[2021-07-22] MEDS ORDERED: NON-FORMULARY MEDICATION 1 EA EA (Vilazodone Hydrochloride (Viibryd) 20 MG) PO SCH (09:00)
[2021-07-22] MEDS ORDERED: NON-FORMULARY MEDICATION 1 EA EA (Estradiol (Estrace Tablet) 0.5 MG) PO SCH (09:00)
[2021-07-22] MEDS: cefTRIAXone 1 GM PRE-MIX 50 ML IV SCH (09:28)
[2021-07-22] MEDS: DIVALPROEX 500 MG DELAYED RELEASE (DEPAKOTE) TAB PO SCH (09:29)
[2021-07-22] MEDS: toPIRamate 100 MG (TOPAMAX) TAB PO SCH (09:29)
--- NOTE | 2021-07-22 09:56 | Physical Therapy Daily Note ---
PT Daily Note-Current Subjective Patient presents sitting in bed and agrees to participate in therapy. Patient voices no complaints of pain. Mental Status Patient Orientation: Person, Confused Attachments: IV Transfers SCALE: Activities may be completed with or without assistive devices. 5-Trngcwrkbl-shtsxrf completes the activity by him/herself with no assistance from a helper. 5-Set-up or Clean-up Assistance-helper sets up or cleans up; patient completes activity. [place] assists only prior to or following the activity. 4-Supervision or Touching Assistance-helper provides verbal cues and/or touching/steadying and/or contact guard assistance as patient completes activity. Assistance may be provided throughout the activity or intermittently. 3-Partial/Moderate Assistance-helper does LESS THAN HALF the effort. [place] lifts, holds or supports trunk or limbs, but provides less than half the effort. 2-Substantial/Maximal Assistance-helper does MORE THAN HALF the effort. [place] lifts or holds trunk or limbs and provides more than half the effort. 7-Ddrlvwkao-unfdah does ALL the effort. Patient does none of the effort to complete the activity. Or, the assistance of 2 or more helpers is required for the patient to complete the activity. If activity was not attempted, code reason: 7-Patient Refused. 9-Not Applicable-not attempted and the patient did not perform the activity before the current illness, exacerbation or injury. 10-Not Attempted due to Environmental Limitations-(lack of equipment, weather restraints, etc.). 88-Not Attempted due to Medical Conditions or Safety Concerns. Lying to Sitting/Side of Bed(Q: 4 Sit to Stand (QC): 4 Chair/Onz-bo-Kvesf Xfer(QC): 4 Gait Training Does the Patient Walk?: Yes Distance: 75' Walk 10 feet (QC): 4 Walk 50 ft with 2 Turns(QC): 4 Gait Assistive Device: FWW Patient ambulated for 75' within her room with CGA. Patient required assistance with guiding the walker and going in the correct direction. Treatments Ambulation and standing endurance Assessment Current Status: Fair Progress Patient stood at FWW with CGA for over 5 minutes while nursing staff assisting in changing the patient after soiling the bed and brief. Patient ambulated within the room with FWW and CGA for 75'. Patient was confused during part of the treatment session and required frequent cues to continue to walk in the correct direction. Patient is also hard of hearing so it is difficult for her to hear directions and cues. PT Commercial Sales Representative Goals Half-Way Goals PT Half-Way Goals Time Frame: Aug 01, 2021 Roll Left & Right (QC): 6 Sit to Lying (QC): 6 Lying-Sitting on Side/Bed(QC): 6 Sit to Stand (QC): 6 Chair/Pmq-hd-Rlfol Xfer(QC): 6 Toilet Transfer (QC): 6 Walk 10 feet (QC): 6 Walk 50ft with 2 Turns (QC): 6 Walk 150 ft (QC): 6 PT Plan Problem List Problem List: Activity Tolerance, Functional Strength, Safety, Balance, Gait, Transfer, Bed Mobility, ROM Treatment/Plan Treatment Plan: Continue Plan of Care Treatment Plan: Bed Mobility, Education, Functional Activity [place], Functional Strength, Gait, Safety, Therapeutic Exercise, Transfers Treatment Duration: Aug 01, 2021 Frequency: 6 times per week Estimated Hrs Per Day: .25 hour per day Patient and/or Family Agrees t: Yes Safety Risks/Education Patient Education: Gait Training, Correct Positioning, Safety Issues Teaching Recipient: Patient Teaching Methods: Discussion Response to Teaching: Reinforcement Needed Time/GCodes Time In: 922 Time Out: 939 Total Billed Treatment Time: 15 Total Billed Treatment 1 Visit [facility] 15 min JIMY SIMON PT Jul 22, 2021 09:55
[2021-07-22] MEDS: AZITHROMYCIN 500 MG/NS 250 ML IVPB IV SCH ×2 (10:16)
--- NOTE | 2021-07-22 11:28 | Occupational Ther Daily Note ---
OT Current Status-Daily Note Subjective Pt sitting up in bed. Pt agreeable to OT tx. Mental Status/Objective Patient Orientation: Person, Place Attachments: IV ADL-Treatment Therapy Code Descriptions/Definitions Functional [place] Measure: 0=Not Assessed/NA 4=Minimal Assistance 1=Total Assistance 5=Supervision or Setup 2=Maximal Assistance 6=Modified [place] 3=Moderate Assistance 7=Complete IndependenceSCALE: Activities may be completed with or without assistive devices. 6-Ofoesvpswl-gqhhazu completes the activity by him/herself with no assistance from a helper. 5-Set-up or Clean-up Assistance-helper sets up or cleans up; patient completes activity. [place] assists only prior to or following the activity. 4-Supervision or Touching Assistance-helper provides verbal cues and/or touching/steadying and/or contact guard assistance as patient completes activity. Assistance may be provided throughout the activity or intermittently. 3-Partial/Moderate Assistance-helper does LESS THAN HALF the effort. [place] lifts, holds or supports trunk or limbs, but provides less than half the effort. 2-Substantial/Maximal Assistance-helper does MORE THAN HALF the effort. [place] lifts or holds trunk or limbs and provides more than half the effort. 4-Ahohlwjyb-shtjkd does ALL the effort. Patient does none of the effort to complete the activity. Or, the assistance of 2 or more helpers is required for the patient to complete the activity. If activity was not attempted, code reason: 7-Patient Refused. 9-Not Applicable-not attempted and the patient did not perform the activity before the current illness, exacerbation or injury. 10-Not Attempted due to Environmental Limitations-(lack of equipment, weather restraints, etc.). 88-Not Attempted due to Medical Conditions or Safety Concerns. Shower/Bathe Self (QC): 2 (max A per nursing staff, max verbal cues needed for sequencing) Other Treatment Pt sitting up in bed. Pt completed x10 reps of the following BUE exercises: shoulder flexion, front punches, elbow flexion/extension, wrist flexion/extension and finger flexion/extension in order to increase BUE strength and activity tolerance. Pt in bed, call light in reach and all needs met. Education OT Patient Education: Correct positioning, Energy conservation, Exercise program, Modified ADL techniques, Progress toward Goal/Update tx plan, Purpose of tx/functional activities Teaching Recipient: Patient Teaching Methods: Demonstration, Discussion Response to Teaching: Verbalize Understanding, Return Demonstration OT Long-Term Goals Tower Loader Operator Goals 1=Demonstrate adherence to instructed precautions during ADL tasks. 2=Patient will verbalize/demonstrate understanding of assistive devices/modifications for ADL. 3=Patient will improve strength/tolerance for activity to enable patient to perform ADL's. OT Education/Plan Problem List/Assessment Assessment: Decreased Activ Tolerance, Decreased UE Strength, Impaired Funct Balance, Impaired I ADL's, Impaired Self-Care Skills Discharge Recommendations Plan/Recommendations: Continue POC Treatment Plan/Plan of Care Patient would benefit from OT for education, treatment and training to promote independence in ADL's, mobility, safety and/or upper extremity function for ADL's. Plan of Care: ADL Retraining, Functional Mobility, UE Funct Exercise/Act Treatment Duration: Jul 31, 2021 Frequency: 3 times per week (3-5 times per week) Rehab Potential: Fair Time/GCodes Start Time: 11:13 Stop Time: 11:21 Total Time Billed (hr/min): 8 Billed Treatment Time 1, EX (8) BYRON URBINA OT Jul 22, 2021 11:28
[2021-07-22] MEDS ORDERED: CEFD300C3 PO (14:57)
--- NOTE | 2021-07-22 17:51 | D/C HH Face to Face Order ---
D/C Face to Face Orders Instructions for Patient Via [facility], Patient Instructions/FollowUp: Take medications as prescribed. Follow up with your PCP. Return with worsening symptoms. Physician to follow Patient: Otis Discharge Diet for Home: No Restrictions Patient Data-Allergies,Ht & Wt Patient Allergies: Coded Allergies: Penicillins (Verified Allergy, Unknown, 01/08/08) hydrocodone (Verified Allergy, Unknown, 01/08/08) morphine (Verified Allergy, Unknown, 01/08/08) aspirin (Verified Adverse Reaction, Mild, STOMACH UPSET, 01/10/08) Height (Feet): 5 Height (Inches): 8.00 Weight (Pounds): 160 Weight (Ounces): 0 Home Health Need/Face to Face Date of Face to Face: Jul 22, 2021 Clinical Findings: Instability, Muscle weakness, Unsteady gait I have seen Pt [id number]: Yes Discharged To: Home Diagnosis/Conditions: Pneumonia UTI Depression Anxiety PTSD Problems/Diagnosis/Condition: (1) Left lower lobe pneumonia (2) Urinary tract infection (3) Weakness Patient is Homebound due to: CognItive deficits, Jolly fall risk due to instabilty, Muscle weakness Homebound Status Due to the above stated illness, injury or surgical procedure (medical condition or diagnosis) and associated clinical findings, the patient is homebound because of his/her inability to leave home except with aid of a supportive device and/or person AND leaving the home requires a considerable and taxing effort or is medically contraindicated. Pt req the following assistanc: Aid of another person Home Health Nursing Orders Home Health Services Order: Nursing Services, Assembler Movement-Evaluate & Treat, Physical Therapy-Evaluate & Treat Home Health Infusion Therapy Line Start Date: Jul 20, 2021 Therapy Orders Therapy Orders: OT (must have SN or PT order), Physical Therapy Therapy Specific Orders: Eval assistive deivces, Teach enviro modifications/safety, Gait training, Increase strength/endurance Certify Stmt I certify that this patient is under my care and that I, a nurse practitioner or a physician; a election assistant working with me, had a face to face encounter that - meets the physician face to face encounter requirements with this patient as dated. SHEMAR MATTHEWS MD Jul 22, 2021 17:51
[2021-07-22 17:52] VITALS: BP 145/87
== END 2021-07-22 17:53 | disposition home health service (06) | DRG 689 ==
LOC: ER 08:50 → 4TH 11:06
PROVIDERS: ADMIT Internal Medicine; ATTEND Internal Medicine
DX: N39.0 Urinary tract infection, site not specified (principal); J18.9 Pneumonia, unspecified organism; R53.1 Weakness; E03.9 Hypothyroidism, unspecified; Z20.822 Contact with and (suspected) exposure to COVID-19; F32.A Depression, unspecified; F43.10 Post-traumatic stress disorder, unspecified; G43.909 Migraine, unspecified, not intractable, without status migrainosus; G89.29 Other chronic pain; M54.9 Dorsalgia, unspecified; F17.210 Nicotine dependence, cigarettes, uncomplicated; Z88.0 Allergy status to penicillin; Z88.5 Allergy status to narcotic agent
CPT/HCPCS: 36415; 71045; 80048; 80053; 81000; 83735; 84145; 85007; 85025; 85027; 86141; 87040; 87077; 87088; 87186; 87636; 94640; 94760; 96365; 96367; 96368

== ENCOUNTER → 2021-08-04 | Outpatient (CLI) | payer MEDICARE, MEDICAID ==
[~2021-08-04] MED LIST changes: +CEFD300C3 PO; +ESTR0.5T3 PO; +LEVO150T6 PO; +RT-ALBUINH IH
[2021-08-04 14:04] LABS: BASOPHILS # (AUTO) 0.1 10^3/uL (0.0-0.1); BASOPHILS % (AUTO) 1 % (0-10); EOSINOPHILS # (AUTO) 0.2 10^3/uL (0.0-0.3); EOSINOPHILS % (AUTO) 2 % (0-10); HEMATOCRIT 34 % (35-52); HEMOGLOBIN 10.8 g/dL (11.5-16.0); LYMPHOCYTES # (AUTO) 3.2 10^3/uL (1.0-4.0); LYMPHOCYTES % (AUTO) 38 % (12-44); MEAN CORPUSCULAR HEMOGLOBIN 33 pg (25-34); MEAN CORPUSCULAR HGB CONC 32 g/dL (32-36); MEAN CORPUSCULAR VOLUME 102 fL (80-99); MEAN PLATELET VOLUME 10.6 fL (9.0-12.2); MONOCYTES # (AUTO) 0.6 10^3/uL (0.0-1.0); MONOCYTES % (AUTO) 8 % (0-12); NEUTROPHILS # (AUTO) 4.3 10^3/uL (1.8-7.8); NEUTROPHILS % (AUTO) 51 % (42-75); PLATELET COUNT 198 10^3/uL (130-400); WHITE BLOOD COUNT 8.4 10^3/uL (4.3-11.0)
[2021-08-04 15:13] LABS: POTASSIUM 4.3 MMOL/L (3.6-5.0)
[2021-08-04 15:14] LABS: ALBUMIN 3.3 GM/DL (3.2-4.5); BILIRUBIN,TOTAL 0.3 MG/DL (0.1-1.0); CALCIUM 9.1 MG/DL (8.5-10.1); CREATININE SERUM 0.94 MG/DL (0.60-1.30); TOTAL PROTEIN 7.5 GM/DL (6.4-8.2)
== END ==
LOC: LAB FS 13:23
PROVIDERS: ATTEND Family Medicine
DX: G43.909 Migraine, unspecified, not intractable, without status migrainosus (principal); E03.9 Hypothyroidism, unspecified; Z76.89 Persons encountering health services in other specified circumstances
CPT/HCPCS: 36415; 80053; 80164; 84443; 85025

== ENCOUNTER → 2021-08-31 | Outpatient (CLI) | payer MEDICARE, MEDICAID ==
[~2021-08-31] MED LIST changes: +HOLD METFORMIN - RECEIVED CONTRAST 20 ML VIAL IV SCH; +IOHEXOL 350 MG/ML 100 ML (OMNIPAQUE 350) VIAL IV ONE; +NS 100 ML (IVPB) BAG IV ONE
--- NOTE | 2021-08-31 11:29 | Diagnostic Imaging Report ---
PROCEDURE: CT chest with contrast only. TECHNIQUE: Multiple contiguous axial images were obtained through the chest after administration of intravenous contrast. Auto Exposure Controls were utilized during the CT exam to meet ALARA standards for radiation dose reduction. INDICATION: Chronic cough. COMPARISON: No priors for direct comparison. We do correlate with overlapped sections obtained during an abdominal CT in May 2019. FINDINGS: Some discoid subsegmental atelectasis is juxta fissural in the dependent lingular segment of the left upper lobe. No findings felt suggestive of pneumonia. There are a few right greater than left apical peripheral and paraseptal cysts. No evidence for pneumothorax. No pneumomediastinum. There is no failure pattern. There is no effusion. No acute chest wall pathology. There is trace pericardial fluid at the superior recess. No pneumothorax. No acute chest wall pathology. No lung mass. No adenopathy. IMPRESSION: 1. There are small predominantly right apical paraseptal cysts without cyst rupture or pneumothorax. 2. Discoid subsegmental dependent atelectasis juxta fissural in the lingular segment of the left upper lobe. 3. No findings of pneumonia, edema, or mass. Dictated by: Dictated on workstation # [id number]
== END ==
LOC: RAD 09:45
PROVIDERS: ATTEND Family Medicine
DX: J98.4 Other disorders of lung (principal)
CPT/HCPCS: 71260

== ENCOUNTER → 2021-09-21 | Outpatient (CLI) | payer MEDICARE, MEDICAID ==
[~2021-09-21] MED LIST changes: -HOLD METFORMIN - RECEIVED CONTRAST 20 ML VIAL IV SCH; -IOHEXOL 350 MG/ML 100 ML (OMNIPAQUE 350) VIAL IV ONE; -NS 100 ML (IVPB) BAG IV ONE
[2021-09-21 16:38] LABS: BILIRUBIN,URINE NEGATIVE (NEGATIVE); CLARITY,URINE SL CLOUDY; COLOR,URINE YELLOW; GLUCOSE, URINE (UA) NEGATIVE (NEGATIVE); KETONES,URINE NEGATIVE (NEGATIVE); LEUKOCYTE ESTERASE ,URINE NEGATIVE (NEGATIVE); NITRITE,URINE NEGATIVE (NEGATIVE); PH,URINE 6.5 (5-9); PROTEIN,URINE NEGATIVE (NEGATIVE)
[2021-09-21 16:44] LABS: POTASSIUM 4.2 MMOL/L (3.6-5.0)
[2021-09-21 16:47] LABS: CALCIUM 9.2 MG/DL (8.5-10.1); CREATININE SERUM 0.92 MG/DL (0.60-1.30)
[2021-09-21 17:06] LABS: AMORPHOUS SEDIMENT,UR MOD AMOR PHOSPHATE /LPF; BACTERIA,URINE NEGATIVE /HPF; RBC,URINE RARE /HPF; SQUAMOUS EPITHELIAL CELL,UR RARE /HPF; WBC,URINE RARE /HPF
[2021-09-21 17:07] LABS: HYALINE CASTS, URINE RARE /LPF
== END ==
LOC: LAB FS 15:41
PROVIDERS: ATTEND Family Medicine
DX: E87.1 Hypo-osmolality and hyponatremia (principal); R40.0 Somnolence; N39.0 Urinary tract infection, site not specified; M51.36 Other intervertebral disc degeneration, lumbar region
CPT/HCPCS: 36415; 80048; 81000

== ENCOUNTER → 2022-04-09 | Outpatient (CLI) | payer MEDICARE, MEDICAID ==
[2022-04-09 12:34] LABS: BASOPHILS % (AUTO) 0 % (0-10); EOSINOPHILS # (AUTO) 0.1 10^3/uL (0.0-0.3); EOSINOPHILS % (AUTO) 1 % (0-10); HEMATOCRIT 38 % (35-52); HEMOGLOBIN 13.1 g/dL (11.5-16.0); LYMPHOCYTES # (AUTO) 2.6 10^3/uL (1.0-4.0); LYMPHOCYTES % (AUTO) 44 % (12-44); MEAN CORPUSCULAR HEMOGLOBIN 33 pg (25-34); MEAN CORPUSCULAR HGB CONC 34 g/dL (32-36); MEAN CORPUSCULAR VOLUME 97 fL (80-99); MONOCYTES # (AUTO) 0.7 10^3/uL (0.0-1.0); MONOCYTES % (AUTO) 13 % (0-12); NEUTROPHILS # (AUTO) 2.4 10^3/uL (1.8-7.8); NEUTROPHILS % (AUTO) 41 % (42-75); PLATELET COUNT 128 10^3/uL (130-400); WHITE BLOOD COUNT 5.8 10^3/uL (4.3-11.0)
[2022-04-09 12:44] LABS: CARBON DIOXIDE 21 MMOL/L (21-32); CHLORIDE 100 MMOL/L (98-107); SODIUM 134 MMOL/L (135-145)
[2022-04-09 12:45] LABS: ALANINE AMINOTRANSFERASE < 5 U/L (0-55); ALBUMIN 3.9 GM/DL (3.2-4.5); ALKALINE PHOSPHATASE 116 U/L (40-136); BILIRUBIN,TOTAL 0.2 MG/DL (0.1-1.0); BUN/CREATININE RATIO 20; CREATININE SERUM 1.01 MG/DL (0.60-1.30); GFR ESTIMATED 64; GLUCOSE 121 MG/DL (70-105); TOTAL PROTEIN 7.1 GM/DL (6.4-8.2)
[2022-04-09 15:10] LABS: VALPROIC ACID 149.5 UG/ML (50.0-100.0)
== END ==
LOC: LAB FS 12:06
PROVIDERS: ATTEND Family Medicine
DX: E03.9 Hypothyroidism, unspecified (principal); G43.909 Migraine, unspecified, not intractable, without status migrainosus; E87.1 Hypo-osmolality and hyponatremia; R41.3 Other amnesia; R40.0 Somnolence; Z76.89 Persons encountering health services in other specified circumstances
CPT/HCPCS: 36415; 80053; 80164; 84443; 85025

== ENCOUNTER → 2022-06-16 | Outpatient (CLI) | payer MEDICARE, MEDICAID ==
[~2022-06-16] MED LIST changes: +ALBU8.5H6 IH; +CLOP-31 PO; -CLOP75TA69 PO; -RT-ALBUINH IH
--- NOTE | 2022-06-16 18:25 | Diagnostic Imaging Report ---
INDICATION: Dyspnea. TECHNIQUE: PA and lateral chest obtained at 03:41 p.m. FINDINGS: Heart and mediastinal silhouette are normal in appearance. The lungs are clear. There is no pneumothorax or pleural fluid. IMPRESSION: Negative chest. Dictated by: Dictated on workstation # [id number]
== END ==
LOC: RAD FS 15:23
PROVIDERS: ATTEND Registered Nurse Emergency
DX: R06.00 Dyspnea, unspecified (principal)
CPT/HCPCS: 71046

== ENCOUNTER 2023-02-20 19:57 | Emergency (ER) | payer MEDICARE, MEDICAID ==
[2023-02-20 20:00] VITALS: BP 115/83
--- NOTE | 2023-02-20 20:41 | Diagnostic Imaging Report ---
CHEST 1 VIEW, AP/PA ONLY Indication: Chest trauma Comparison: 06/16/2022 Findings: No focal airspace disease in the visualized lungs. No pleural effusion or pneumothorax. Normal cardiomediastinal silhouette. Impression: 1. No acute cardiopulmonary process by portable radiography. Dictated by: Dictated on workstation # [id number]
--- NOTE | 2023-02-20 20:42 | Diagnostic Imaging Report ---
PELVIS 1 TO 2 VIEWS INDICATION: Trauma COMPARISON: None available. TECHNIQUE: AP view of the pelvis. FINDINGS: No diastases of the symphysis pubis or SI joints. No hip dislocation. No acute displaced fracture within the pelvis is appreciated. IMPRESSION: No acute displaced fracture or traumatic malalignment. Dictated by: Dictated on workstation # [id number]
--- NOTE | 2023-02-20 20:44 | Diagnostic Imaging Report ---
Knee, 3 views, bilateral INDICATION: Bilateral knee pain. COMPARISON: None available. TECHNIQUE: 3 views of each knee for a total of 6 views. FINDINGS: No acute fracture on either side. On the right, there is prepatellar soft tissue swelling. No radiopaque foreign body or soft tissue gas. No knee joint effusion on either side. IMPRESSION: No acute fracture about either knee. Dictated by: Dictated on workstation # [id number]
--- NOTE | 2023-02-20 21:03 | ED Fall/Injury ---
General Chief Complaint: Trauma-Non Activation Stated Complaint: FALL Nursing Triage Note: TO ED [facility]IA [facility] FROM HOME. PT STATES SHE WAS PULLED DOWN BY DOG FROM STANDING LEVEL TO GRASS. C/O BILATERAL KNEE PAIN, LOWER BACK PAIN, LEFT SIDE FACIAL PAIN, AND NECK PAIN. C COLLAR IN PLACE ON ARRIVAL, PLACED BY EMS EN ROUTE. PT WEARS LIFE ALERT AND USES CANE, CANE BROUGHT WITH EMS TO ER. DENIES LOC. Source: patient (PT IS LIMITED HISTORIAN AND IS HARD OF HEARING) History of Present Illness Date Seen by Provider: Feb 20, 2023 Time Seen by Provider: 20:08 Initial Comments PT ARRIVES VIA EMS FROM HOME, WITH CERVICAL COLLAR IN PLACE PT WAS WALKING HER DOG, WAS STANDING IN THE GRASS AND THE DOG PULLED HER AND SHE FELL ONTO THE GRASS SHE DENIES LOSS OF CONSCIOUSNESS C/O LEFT FACIAL PAIN C/O NECK PAIN C/O LOWER BACK PAIN --PT HAS CHRONIC BACK PAIN C/O BILATERAL KNEE PAIN PT DENIES HEADACHE NO PARESTHESIAS OR MOTOR DEFICITS NO VISION CHANGES NO NAUSEA/VOMITING NO CHEST PAIN OR SHORTNESS OF BREATH NO DIZZINESS NO ABDOMINAL PAIN OR GI SYMPTOMS PT NORMALLY USES A CANE FOR AMBULATION AND HAS A LIFE ALERT. PT IS NOT ON ASPIRIN OR BLOOD THINNERS Allergies and Home Medications Allergies Coded Allergies: Penicillins (Verified Allergy, Unknown, 01/08/08) hydrocodone (Verified Allergy, Unknown, 01/08/08) morphine (Verified Allergy, Unknown, 01/08/08) aspirin (Verified Adverse Reaction, Mild, STOMACH UPSET, 01/10/08) Patient Home Medication List Albuterol Sulfate (Ventolin Hfa) 1 Puff Puff, 2 PUFF IH Q4H PRN for SHORTNESS OF BREATH, (Reported) Entered as Reported by: CHANTAL ESTES on 07/21/21 1027 Cefdinir (Cefdinir) 300 Mg Capsule, 300 MG PO BID Prescribed by: SHEMAR MATTHEWS on 07/22/21 1457 Divalproex Sodium (Divalproex Sodium) 500 Mg Tablet.dr, 1,000 MG PO BID, (Reported) Entered as Reported by: ALIZA CAMEJO on 04/12/18 1634 Estradiol (Estrace Tablet) 0.5 Mg Tablet, 0.5 MG PO DAILY, (Reported) Entered as Reported by: CHANTAL ESTES on 07/21/21 1027 Ibuprofen (Ibuprofen) 800 Mg Tablet, 800 MG PO BID, (Reported) Entered as Reported by: ALIZA CAMEJO on 04/12/18 1634 Levothyroxine Sodium (Levothyroxine Sodium) 150 Mcg Tablet, 150 MCG PO DAILY, (Reported) Entered as Reported by: CHANTAL ESTES on 07/21/21 1027 Naproxen (Naproxen) 500 Mg Tablet.dr, 500 MG PO BID Prescribed by: JAMAL SKINNER on 02/20/23 214 Risperidone (Risperidone) 1 Mg Tablet, 1 MG PO HS, (Reported) Entered as Reported by: ALIZA CAMEJO on 04/12/18 1634 Sumatriptan Succ/Naproxen Sod (Treximet 85-500 mg Tablet) 1 Each Tablet, PO UD PRN for MIGRAINE, (Reported) Entered as Reported by: MARIA ROTH on 04/03/19 0939 Topiramate (Topiramate) 100 Mg Tablet, 200 MG PO BID, (Reported) Entered as Reported by: ALIZA CAMEJO on 04/12/18 163 Vilazodone Hydrochloride (Viibryd) 20 Mg Tablet, 20 MG PO DAILY, (Reported) Entered as Reported by: MARIA ROTH on 04/03/19 0939 Review of Systems Review of Systems Constitutional: no symptoms reported Eyes: No Symptoms Reported Ears, Nose, Mouth, Throat: no symptoms reported Respiratory: no symptoms reported Cardiovascular: no symptoms reported Gastrointestinal: no symptoms reported Genitourinary: no symptoms reported Musculoskeletal: see HPI Skin: no symptoms reported Psychiatric/Neurological: No Symptoms Reported Past Icbeozo-Ehgqsp-Shipgx Hx Patient Social History Tobacco Use?: Yes Tobacco type used: Cigarettes Smoking Status: Current Everyday Smoker Additional substance use comme: DENIES Immunizations Up To Date Tetanus Booster (TDap): Less than 5yrs PED Vaccines UTD: Yes First/Initial COVID19 Vaccinat: None Past Medical History Surgeries: Yes (HYST/BSO; X 2; BLADDER SUGERY X 2; CARDIAC CATH 2007--NORMAL) Bladder Surgery, Section, Hysterectomy, Oophorectomy, Tonsillectomy Respiratory: No Currently Using CPAP: No Currently Using BIPAP: No Cardiac: No (CARDIAC CATH 2007--NORMAL. 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 INTERSTITIAL CYSTITIS ? ) Gastrointestinal: No Musculoskeletal: Yes Back Injury, Chronic Back Pain Endocrine: Yes Hypothyroidsim HEENT: Yes (POOR DENTITION ) Cancer: No Psychosocial: Yes (SUBSTANCE ABUSE; "ANGER ISSUES" ) Anxiety, PTSD, Depression Integumentary: No Blood Disorders: Yes Family Medical History Patient reports no known family medical history. No Pertinent Family Hx Physical Exam Vital Signs Vital Signs - First Documented Capillary Refill : Less Than 3 Seconds Height, Weight, BMI Height: 5'8.00" Weight: 160lbs. 0oz. [id number]; 29.03 BMI Method:Stated General Appearance: WD/WN, no apparent distress, other (REEKS OF CIGARETTES. DOES NOT APPEAR TO BE IN ANY DISCOMFORT OR DISTRESS. ) HEENT: PERRL/EOMI, TMs normal, other (EXTREMELY POOR DENTITION. VERY HARD OF HEARING) Neck: other (IN CERVICAL COLLAR) Cardiovascular: normal peripheral pulses, regular rate, rhythm, no edema, no JVD, no murmur Respiratory: chest non-tender, normal breath sounds, no respiratory distress, no accessory muscle use Peripheral Pulses: 1+ Dorsalis Pedis (R), 1+ Left Dors-Pedis (L), 1+ Radial Pulses (R), 1+ Radial Pulses (L) Gastrointestinal: normal bowel sounds, non tender, soft Back: no CVA tenderness Extremities: normal range of motion, no pedal edema, no calf tenderness, normal capillary refill, other (TENDERNESS TO BOTH KNEES. 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, no motor/sensory deficits, alert, normal mood/affect, oriented x 3 Skin: normal color Progress/Results/Core Measures Results/Orders My Orders Orders - JAMAL SKINNER DO Monitor-Rhythm Ecg Trace Only (02/20/23 20:16) Ct Head/Face/Cervical Wo (02/20/23 20:16) Ct Thoracic/Lumbar Spine Wo (02/20/23 20:16) Chest 1 View, Ap/Pa Only (02/20/23 20:16) Pelvis 1 To 2 Views (02/20/23 20:16) Knee, 3 Views, Bilateral (02/20/23 20:16) Rx-Naproxen (Rx-Naprosyn) (02/20/23 21:37) Walker (02/20/23 21:44) Vital Signs/I&O 02/20/23 02/20/23 20:00 20:00 Temp 36.4 36.4 Pulse 72 72 Resp 16 16 B/P (MAP) 115/83 (94) 115/83 (94) Pulse Ox 96 96 O2 Delivery Room Air Room Air Blood Pressure Mean: 94 Departure Impression Primary Impression: Fall from standing Additional Impressions: Minor head injury without loss of consciousness Facial contusion BILATERAL KNEE CONTUSIONS Neck strain Back strain VERTEBRAL COMPRESSION FRACTURES OF UNKNOWN AGE Chronic back pain CHRONIC POOR AMBULATION Disposition: HOME, SELF-CARE Condition: Stable Departure-Patient Inst. Decision time for Depature: 21:40 Referrals: KEILA HSU MD (PCP/Family) Primary Care Physician Patient Instructions: Cervical Sprain ED, Contusion (DC), Getting In and Out of a Tub or Shower With Walker, Going Up and Down Curbs or Stairs With a Walker or Crutches, How to Use a Walker, Low Back Pain ED, Minor Head Injury, Adult ED, Preventing Falls ED, Using Cold for Pain, Vertebral Compression Fracture (DC) Add. Discharge Instructions: HOME REST ICE TO SORE AREAS AT 20 MINUTE INTERVALS USE WALKER AT ALL TIMES INSTEAD OF YOUR CANE FOLLOW UP WITH YOUR DR THIS WEEK FOR FURTHER CARE All discharge instructions reviewed with patient and/or family. Voiced understanding. Scripts Naproxen (Naproxen) 500 Mg Tablet. 500 MG PO BID, #20 TAB Prov: JAMAL SKINNER DO 02/20/23 JAMAL SKINNER DO Feb 20, 2023 21:03
--- NOTE | 2023-02-20 21:15 | Diagnostic Imaging Report ---
PROCEDURE: CT head, face, cervical spine without contrast. TECHNIQUE: Multiple contiguous axial images were obtained through the head, neck, and facial bones without the use of intravenous contrast. Sagittal and coronal reformations through the cervical spine and facial bones were also performed. All CT scans use one or more of the following dose optimizing techniques: automated exposure control, MA and/or KvP adjustment based on a patient size and exam type, or iterative reconstruction. INDICATION: Trauma COMPARISON: MRI brain of 01/06/2021 FINDINGS: Head: No hyperdense hemorrhage or space-occupying mass. No hydrocephalus or midline shift. No evidence of territorial infarct. Basilar cisterns are patent. No focal scalp swelling. No skull fracture. The mastoid air cells are clear. Face: No fracture of the nasal bones, osseous nasal septum or anterior nasal spine. The orbits, zygomatic arches, maxillary sinus hamilton, alveolar ridge of the maxilla and pterygoid plates are all intact. Normal alignment of the temporal mandibular joints. No acute mandibular fracture. Multifocal dental caries. Paranasal sinuses are clear. No globe rupture or retrobulbar hematoma. Cervical spine: No acute fracture or traumatic malalignment. No high-grade spinal canal narrowing. Airway is patent. No cervical lymphadenopathy. Visualized thyroid is normal. IMPRESSION: 1. No acute intracranial process or skull fracture. 2. No acute fracture in the mid face or mandible. 3. No acute fracture or traumatic malalignment of the cervical spine. Dictated by: Dictated on workstation # [id number]
--- NOTE | 2023-02-20 21:25 | Diagnostic Imaging Report ---
CT thoracic/lumbar spine w/o INDICATION: Back pain after trauma. COMPARISON: None available. TECHNIQUE: CT imaging of the thoracic and lumbar spine was performed without contrast. Automatic exposure controls were utilized for dose optimization. FINDINGS: Thoracic: No acute appearing fracture. There is some slight height loss of the superior endplate of T9 which has a chronic appearance. Alignment is normal. No high-grade spinal canal stenosis. No paravertebral fat stranding. No acute fracture within the visualized aspects of the posterior ribs. Lumbar: Superior plate fracture of L3 has a superimposed Schmorl's node deformity. The fracture is age-indeterminate. No other fracture. Degenerative disc disease and facet osteoarthritis result in moderate spinal canal stenosis at L2-L3 and L3-L4. No sacral insufficiency fracture. IMPRESSION: 1. Age-indeterminate superior endplate compression fracture of L3. 2. Likely chronic superior endplate compression fracture of T9. Dictated by: Dictated on workstation # [id number]
[2023-02-20] MEDS ORDERED: RX-NAPROXEN (NAPROSYN) 250 MG TAB PPK#4 PO STA (21:37)
[2023-02-20] MEDS ORDERED: NAPR500T8 PO (21:43)
== END 2023-02-20 22:12 | disposition home or self-care (01) ==
LOC: EDUNIT# 19:57 → ER 19:59
DX: S09.90XA Unspecified injury of head, initial encounter (principal); S16.1XXA Strain of muscle, fascia and tendon at neck level, initial encounter; S39.012A Strain of muscle, fascia and tendon of lower back, initial encounter; S80.02XA Contusion of left knee, initial encounter; S80.01XA Contusion of right knee, initial encounter; S00.83XA Contusion of other part of head, initial encounter; M48.50XA Collapsed vertebra, not elsewhere classified, site unspecified, initial encounter for fracture; G89.29 Other chronic pain; F17.210 Nicotine dependence, cigarettes, uncomplicated; Z28.310 Unvaccinated for COVID-19; W18.30XA Fall on same level, unspecified, initial encounter; Y93.K1 Activity, walking an animal
CPT/HCPCS: 70450; 70486; 71045; 72125; 72128; 72131; 72170; 93041

== ENCOUNTER → 2023-03-07 | Outpatient (CLI) | payer MEDICARE, MEDICAID ==
[~2023-03-07] MED LIST changes: +NAPR500T8 PO
--- NOTE | 2023-03-07 17:19 | Diagnostic Imaging Report ---
Indication: Right knee pain post injury. AP, oblique, and lateral views of the right knee are obtained. No fracture or acute bone abnormality is seen. Joint spaces are unremarkable. IMPRESSION: Negative right knee. Dictated by: Dictated on workstation # [id number]
== END ==
LOC: RAD FS 13:51
PROVIDERS: ATTEND Family Medicine
DX: S87.01XD Crushing injury of right knee, subsequent encounter (principal); K21.9 Gastro-esophageal reflux disease without esophagitis; Z51.81 Encounter for therapeutic drug level monitoring; Z79.899 Other long term (current) drug therapy; X58.XXXD Exposure to other specified factors, subsequent encounter
CPT/HCPCS: 73562

== ENCOUNTER → 2023-03-16 | Outpatient (CLI) | payer MEDICARE, MEDICAID | LOC: ORTHO 10:06 | PROVIDERS: ATTEND Orthopaedic Surgery | DX: M70.41 Prepatellar bursitis, right knee (principal) | CPT/HCPCS: 99203 ==